=== PATIENT | female | born 1945 | race Caucasian/White ===

== ENCOUNTER 2017-12-09 07:23 | Emergency (ER) | payer MEDICARE, BC ==
[2017-12-09] MEDS ORDERED: Albuterol/Ipratropium NEB.SOL* Albuterol 2.5 MG/Ipratropium 0.5 MG 3 ML INH ONE ×2 (07:40→08:53)
[2017-12-09 08:05] LABS: ABS Basophils 0.1 10^3/ul (0-0.2); ABS Eosinophils 0.1 10^3/ul (0-0.6); ABS Lymphocytes 2.2 10^3/ul (1.0-4.8); ABS Monocytes 0.6 10^3/ul (0-0.8); ABS Neutrophils 3.8 10^3/ul (1.5-7.7); ABS Nucleated RBC 0 10^3/ul; Eosinophil % 2.1 % (0-6); Hematocrit 42 % (35-47); Hemoglobin 13.9 g/dl (12.0-16.0); Lymphocyte % 32.3 % (25-47); Mean Corpuscular HGB Conc 33 g/dl (31-36); Mean Corpuscular Hemoglobin 31 pg (27-31); Mean Corpuscular Volume 93 fL (80-97); Mean Platelet Volume 8 um3 (7.4-10.4); Nucleated Red Blood Cells % 0.1; Platelet Count 199 10^3/ul (150-450); Red Blood Count 4.54 10^6/ul (4.0-5.4); Red Cell Distribution Width 14 % (10.5-15); White Blood Count 6.8 10^3/ul (3.5-10.8)
[2017-12-09 08:16] LABS: EGFR Non-African American 60.2 (>60)
[2017-12-09] MEDS ORDERED: Ondansetron INJ* 2 MG/ML VIAL IV ONE (08:53)
[2017-12-09] MEDS ORDERED: methylPREDNISolone 125 MG* 2 ML VIAL IV ONE (08:54)
--- NOTE | 2017-12-09 09:58 | RAD ---
INDICATION: Cough. Flu positive. Bronchitis. Wheezing. COMPARISON: None TECHNIQUE: PA and lateral dual-energy views were obtained. FINDINGS: Bones/Soft Tissues: There are no acute bony findings. Cardiomediastinal: The heart is normal in size. There is mild ectasia of the ascending aorta and aortic knob. There are intimal calcifications. Lungs: There are no infiltrates. There is mild hyperinflation Pleura: There are no pleural effusions. Other: None IMPRESSION: NO ACTIVE DISEASE.
[2017-12-09] MEDS ORDERED: Albuterol HFA INHALER* 8 gm MDI INH ONE (10:15)
[2017-12-09 11:12] VITALS: BP 116/91
--- NOTE | 2017-12-09 15:58 | ED ---
Sudeep Person Thomas, scribed for Joao Barahona MD on 12/09/17 at 0740 . Respiratory - HPI Summary HPI Summary: The patient is a 72 year old female complaining of a productive cough and wheezing for the last two weeks. The patient has visited her primary care physician three times in the last week and has been diagnosed with influenza and bronchitis in the last three weeks. The patient finished a course of Tamiflu , antibiotics, and codeine. The patient denies fever. - History of Current Complaint Chief Complaint: EDGeneral Stated Complaint: SICK/COUGH Hx Obtained From: Patient Onset/Duration: Lasting Weeks - 2, Still Present Current Severity: Moderate Pain Intensity: 0 Character: Wheezing, Cough (Productive) Alleviating Factor(s): Nothing Associated Signs and Symptoms: Negative - fever - Allergy/Home Medications Allergies/Adverse Reactions: Allergies Allergy/AdvReac Type Severity Reaction Status Date / Time nitroglycerin AdvReac Intermediate Headache Verified 12/09/17 08:56 Home Medications: Home Medications Albuterol HFA INHALER* [Ventolin HFA Inhaler*] 2 puff INH Q4H PRN 12/09/17 [ History Confirmed 12/09/17] Butalb/Acetamin/Caff TAB* [Fioricet TAB*] 1 tab PO Q8H PRN 12/09/17 [History Confirmed 12/09/17] Calcium Carbonate/Vitamin D3 [Calcium Carbonate/Vitamin] 1 tab PO BID AC [History Confirmed 12/09/17] Codeine Phosphate/Guaifenesin [Codeine/Guaifenesin 100-10 mg/5Ml] 10 ml PO Q8H PRN 12/09/17 [History Confirmed 12/09/17] Ergocalciferol (Vitamin D2) [Vitamin D2] 50,000 unit PO .Q 2 WEEKS 12/09/17 [ History Confirmed 12/09/17] Hyoscyamine TAB* [Anaspaz 0.125 MG TAB*] 0.125 mg PO Q6H PRN 12/09/17 [History Confirmed 12/09/17] L.acidoph,Paracasei, B.lactis [Probiotic] 1 cap PO DAILY 12/09/17 [History Confirmed 12/09/17] Levothyroxine TAB* [Synthroid TAB*] 125 mcg PO DAILY 12/09/17 [History Confirmed 12/09/17] Ranitidine TAB (NF) [Zantac TAB (NF)] 150 mg PO BID 12/09/17 [History Confirmed 12/09/17] Sertraline* [Zoloft*] 100 - 150 mg PO DAILY 12/09/17 [History Confirmed 12/09/17 ] Zolpidem CR (NF) [Ambien CR (NF)] 6.25 mg PO BEDTIME PRN 12/09/17 [History Confirmed 12/09/17] PMH/Surg Hx/FS Hx/Imm Hx Endocrine/Hematology History: Denies: Hx Diabetes Cardiovascular History: Denies: Hx Congestive Heart Failure GI History: Reports: Hx Gastroesophageal Reflux Disease History: Denies: Hx Renal Disease, Other Problems/Disorders Psychiatric History: Denies: Hx of Violent Episodes Against Others - Surgical History Surgery Procedure, Year, and Place: DENIES Infectious Disease History: No Infectious Disease History: Denies: Traveled Outside the [place] in Last 30 Days - Family History Known Family History: Negative: Blood Disorder - Social History Alcohol Use: Rare Substance Use Type: Reports: None Smoking Status (MU): Never Smoked Tobacco Review of Systems Negative: Fever Positive: Cough, Other - Wheezing All Other Systems Reviewed And Are Negative: Yes Physical Exam - Summary Physical Exam Summary: VITAL SIGNS: Reviewed. GENERAL: Patient is a well-developed and nourished female who is lying comfortable in the stretcher. Patient is not in any acute respiratory distress. HEAD AND FACE: No signs of trauma. No ecchymosis, hematomas or skull depressions. No sinus tenderness. EYES: PERRLA, EOMI x 2, No injected conjunctiva, no nystagmus. EARS: Hearing grossly intact. Ear canals and tympanic membranes are within normal limits. MOUTH: Oropharynx within normal limits. NECK: Supple, trachea is midline, no adenopathy, no JVD, no carotid bruit, no c- spine tenderness, neck with full ROM. CHEST: Symmetric, no tenderness at palpation LUNGS: She has bilateral wheezing. CVS: Regular rate and rhythm, S1 and S2 present, no murmurs or gallops appreciated. ABDOMEN: Soft, non-tender. No signs of distention. No rebound no guarding, and no masses palpated. Bowel sounds are normal. EXTREMITIES: FROM in all major joints, no edema, no cyanosis or clubbing. NEURO: Alert and oriented x 3. No acute neurological deficits. Speech is normal and follows commands. SKIN: Dry and warm Triage Information Reviewed: Yes Vital Signs On Initial Exam: Initial Vitals Temp Pulse Resp BP Pulse Ox 97.6 F 90 20 138/96 94 12/09/17 07:25 12/09/17 07:25 12/09/17 07:25 12/09/17 07:25 12/09/17 07:25 Vital Signs Reviewed: Yes Diagnostics - Vital Signs Vital Signs Temp Pulse Resp BP Pulse Ox 12/09/17 07:25 97.6 F 90 20 138/96 94 - Laboratory Result Diagrams: 12/09/17 07:50 12/09/17 07:50 Lab Statement: Any lab studies that have been ordered have been reviewed, and results considered in the medical decision making process. - Radiology CXR Xray Interpretation: No Acute Changes - NO ACTIVE DISEASE. Dr. Barahona has reviewed this report. Radiology Interpretation Completed By: Radiologist Disposition - Course Assessment/Plan: The patient is a 72 year old female complaining of a productive cough and wheezing for the last two weeks. Test results are without significant abnormalities. CXR is negative for pneumonia and bronchitis. In the ED course, since the patient was wheezing, the patient was given Duo-Neb and Solu-medrol. Her symptoms improved, and she continues to sat 96 on room air. At this point, I discussed the findings and test results with the patient, and she will be discharged home to follow up with primary care. I believe the patients symptoms are secondary to viral illness .She was given a prescription for albuterol and prednisone. - Diagnoses Provider Diagnoses: Wheezing, Viral illness Discharge - Discharge Plan Condition: Stable Disposition: HOME Prescriptions: predniSONE TAB* [Deltasone TAB*] 40 mg PO DAILY #8 tab Patient Education Materials: Viral Syndrome (ED), Wheezing (ED) Referrals: Yudelka Canas MD [Primary Care Provider] - 3 Days Additional Instructions: Follow up with your primary care physician in three days. Return to the emergency department for any new or worsening symptoms. The documentation as recorded by the Sudeep mead Thomas accurately reflects the service I personally performed and the decisions made by , Joao Barahona MD.
== END 2017-12-09 11:09 | disposition home or self-care (01) ==
LOC: ED 07:23
DX: R06.2 Wheezing (principal); R05 Cough; Z87.19 Personal history of other diseases of the digestive system; B34.9 Viral infection, unspecified
CPT/HCPCS: 36415; 71046; 80053; 83605; 83880; 85025; 86140; 87070; 87077; 87205; 94640; 96374; 96375; 99284; A9270-GY; J2405; J2930

== ENCOUNTER 2018-02-01 08:46 | Emergency (ER) | payer MEDICARE, BC ==
[2018-02-01] MEDS ORDERED: Albuterol/Ipratropium NEB.SOL* Albuterol 2.5 MG/Ipratropium 0.5 MG 3 ML INH ONE ×3 (09:27→11:27)
[2018-02-01] MEDS ORDERED: methylPREDNISolone SOD 40 MG* 1 ML VIAL IV ONE (09:27)
[2018-02-01 09:49] LABS: ABS Basophils 0.1 10^3/ul (0-0.2); ABS Eosinophils 0.1 10^3/ul (0-0.6); ABS Lymphocytes 2.1 10^3/ul (1.0-4.8); ABS Monocytes 0.6 10^3/ul (0-0.8); ABS Neutrophils 2.5 10^3/ul (1.5-7.7); ABS Nucleated RBC 0 10^3/ul; Eosinophil % 2.7 % (0-6); Hematocrit 41 % (35-47); Hemoglobin 13.6 g/dl (12.0-16.0); Lymphocyte % 39.2 % (25-47); Mean Corpuscular HGB Conc 33 g/dl (31-36); Mean Corpuscular Hemoglobin 31 pg (27-31); Mean Corpuscular Volume 95 fL (80-97); Nucleated Red Blood Cells % 0.1; Platelet Count 200 10^3/ul (150-450); Red Blood Count 4.33 10^6/ul (4.0-5.4); Red Cell Distribution Width 15 % (10.5-15); White Blood Count 5.5 10^3/ul (3.5-10.8)
--- NOTE | 2018-02-01 10:02 | RAD ---
INDICATION: Shortness of breath, cough, wheezing. COMPARISON: December 09, 2017 chest radiograph and June 11, 2013 CT. TECHNIQUE: Dual energy PA and routine lateral views of the chest were obtained. REPORT: Elevated lung volumes with increased AP thoracic diameter. Minimal prominence of the interstitial markings and mild bilateral apical pleural-parenchymal scarring. No alveolar consolidation, focal pulmonary lesion, pleural effusion, pneumothorax. The heart, pulmonary vasculature, and mediastinal contours are unremarkable. Mild thoracic degenerative spondylosis. Surgical anchor at the RIGHT humeral head. IMPRESSION: Stigmata of obstructive lung disease. No acute pulmonary or cardiac process evident.
[2018-02-01 10:19] LABS: EGFR Non-African American 63.3 (>60)
[2018-02-01 11:08] LABS: Urine Appearance Clear; Urine Blood Negative (Negative); Urine Color Yellow; Urine Ketones Negative (Negative); Urine Protein Negative (Negative); Urine Specific Gravity 1.018 (1.010-1.030); Urine Urobilinogen Negative (Negative)
[2018-02-01] MEDS ORDERED: predniSONE TAB* 20 MG PO ONE (12:13)
[2018-02-01 12:25] VITALS: BP 133/87
--- NOTE | 2018-02-01 18:08 | ED ---
Shortness of Breath - HPI Summary HPI Summary: Patient is a 72-year-old female who presents emergency department for shortness of breath and increased cough times several days. Patient states she is currently being worked up for COPD. She states she was on inhalers and maintenance medications but they were stopped when she started on Nardil. Pt. states her psychiatrist told her she is unable to take any of her lung medications because they may interactive with nardil. Pt. otherwise denies fever , abd. pain, N/V/D. Admits to occasional chest discomfort. Symptoms are moderate in severity. Activity makes symptoms worse. Nothing makes symptoms better. - History of Current Complaint Chief Complaint: EDUpperRespComplaint Time Seen by Provider: 02/01/18 09:05 - Allergy/Home Medications Allergies/Adverse Reactions: Allergies Allergy/AdvReac Type Severity Reaction Status Date / Time nitroglycerin AdvReac Intermediate Headache Verified 02/01/18 08:52 PMH/Surg Hx/FS Hx/Imm Hx Previously Healthy: Yes Endocrine/Hematology History: Denies: Hx Diabetes Cardiovascular History: Denies: Hx Congestive Heart Failure Respiratory History: Denies: Hx Asthma, Hx Chronic Obstructive Pulmonary Disease (COPD) GI History: Reports: Hx Gastroesophageal Reflux Disease, Other GI Disorders - GERD History: Denies: Hx Renal Disease, Other Problems/Disorders Psychiatric History: Denies: Hx of Violent Episodes Against Others - Surgical History Surgery Procedure, Year, and Place: DENIES Infectious Disease History: No Infectious Disease History: Denies: Traveled Outside the [place] in Last 30 Days - Family History Known Family History: Negative: Blood Disorder - Social History Occupation: Retired Lives: With Family Alcohol Use: Rare Substance Use Type: Reports: None Smoking Status (MU): Never Smoked Tobacco Review of Systems Constitutional: Negative Negative: Fever, Chills Eyes: Negative ENT: Negative Positive: Chest Pain Positive: Shortness Of Breath, Cough Gastrointestinal: Negative Negative: Abdominal Pain, Vomiting, Diarrhea Genitourinary: Negative Skin: Negative Neurological: Negative All Other Systems Reviewed And Are Negative: Yes Physical Exam Triage Information Reviewed: Yes Vital Signs On Initial Exam: Initial Vitals Temp Pulse Resp BP Pulse Ox 97.3 F 72 18 158/75 97 02/01/18 08:47 02/01/18 08:47 02/01/18 08:47 02/01/18 08:47 02/01/18 08:47 Appearance: Positive: Well-Appearing - Patient sitting in bed in no acute distress. Breathing easily on room air. present. Skin: Positive: Warm, Dry Head/Face: Positive: Normal Head/Face Inspection Eyes: Positive: Normal ENT: Positive: Normal ENT inspection Neck: Positive: Supple Respiratory/Lung Sounds: Positive: Other - Mild diffuse inspiratory expiratory wheeze throughout. No accessory muscle use. Cardiovascular: Positive: Normal, RRR Abdomen Description: Positive: Nontender Musculoskeletal: Positive: Normal Neurological: Positive: Normal, CN Intact II-III Psychiatric: Positive: Normal Diagnostics - Vital Signs Vital Signs Temp Pulse Resp BP Pulse Ox 02/01/18 12:55 99.4 F 114 22 133/87 91 02/01/18 12:24 99.4 F 114 22 133/87 91 02/01/18 11:48 100 14 92 02/01/18 11:06 76 14 92 02/01/18 08:47 97.3 F 72 18 158/75 97 - Laboratory Lab Results: Lab Results 02/01/18 02/01/18 02/01/18 Range/Units 09:36 09:36 11:00 WBC 5.5 (3.5-10.8) 10^3/ul RBC 4.33 (4.0-5.4) 10^6/ul Hgb 13.6 (12.0-16.0) g/dl Hct 41 (35-47) % MCV 95 (80-97) fL MCH 31 (27-31) pg MCHC 33 (31-36) g/dl RDW 15 (10.5-15) % Plt Count 200 (150-450) 10^3/ul MPV 8.0 (7.4-10.4) um3 Neut % (Auto) 45.2 (38-83) % Lymph % (Auto) 39.2 (25-47) % [place] % (Auto) 10.8 H (0-7) % Eos % (Auto) 2.7 (0-6) % Baso % (Auto) 2.1 H (0-2) % Absolute Neuts (auto) 2.5 (1.5-7.7) 10^3/ul Absolute Lymphs (auto) 2.1 (1.0-4.8) 10^3/ul Absolute Monos (auto) 0.6 (0-0.8) 10^3/ul Absolute Eos (auto) 0.1 (0-0.6) 10^3/ul Absolute Basos (auto) 0.1 (0-0.2) 10^3/ul Absolute Nucleated RBC 0 10^3/ul Nucleated RBC % 0.1 Sodium 142 (139-145) mmol/L Potassium 4.3 (3.5-5.0) mmol/L Chloride 107 (101-111) mmol/L Carbon Dioxide 30 (22-32) mmol/L Anion Gap 5 (2-11) mmol/L BUN 18 (6-24) mg/dL Creatinine 0.88 (0.51-0.95) mg/dL Est GFR ( Amer) 81.5 (>60) Est GFR (Non-Af Amer) 63.3 (>60) BUN/Creatinine Ratio 20.5 H (8-20) Glucose 87 (70-100) mg/dL Calcium 9.0 (8.6-10.3) mg/dL Total Bilirubin 0.40 (0.2-1.0) mg/dL AST 14 (13-39) U/L ALT 10 (7-52) U/L Alkaline Phosphatase 42 (34-104) U/L Troponin I 0.00 (<0.04) ng/mL Total Protein 6.5 (6.4-8.9) g/dL Albumin 3.8 (3.2-5.2) g/dL Globulin 2.7 (2-4) g/dL Albumin/Globulin Ratio 1.4 (1-3) Urine Color Yellow Urine Appearance Clear Urine pH 7.0 (5-9) Ur Specific [place] 1.018 (1.010-1.030) Urine Protein Negative (Negative) Urine Ketones Negative (Negative) Urine Blood Negative (Negative) Urine Nitrate Negative (Negative) Urine Bilirubin Negative (Negative) Urine Urobilinogen Negative (Negative) Ur Leukocyte Esterase Negative (Negative) Urine Glucose Negative (Negative) Result Diagrams: 02/01/18 09:36 02/01/18 09:36 Lab Statement: Any lab studies that have been ordered have been reviewed, and results considered in the medical decision making process. Course/Dx - Course Course Of Treatment: Patient presenting to the emergency department for shortness of breath after stopping her pulmonary medications. She is afebrile with stable vital signs. Oxygen saturation is 97% on room air which is normal. Drug interaction was discussed with psychiatrist and they state there is no definite contraindication between albuterol and MAOIs. Patient was also examined by Dr. Strickland. He agrees to DuoNeb treatment. Basic labs, EKG chest x- ray were also ordered. Did initially order IV Solu-Medrol which was not given as no IV access was obtained by nurse. Chest x-ray shows obstructive lung disease without acute infiltrate, reading per radiology. Blood work is unremarkable. EKG done at 0934 is a sinus rhythm of 77 bpm, determinate access , appropriate intervals, no ST elevation or depression. She was given a total of 2 DuoNeb labs. On reexam wheezing has improved and she is feeling better. Patient has a nebulizer at home. Will put on a short course of steroids. Prescription for albuterol sent. Advised patient to call her lung doctor tomorrow to schedule an appointment and discuss medications. Patient to return to ER symptoms change or worsen. Patient understands and agrees with plan. - Diagnoses Differential Diagnosis/HQI/PQRI: Positive: Asthma, Bronchitis, MS, Pneumonia, Pneumothorax Provider Diagnoses: Obstructive airway disease, Bronchospasm Discharge - Sign-Out/Discharge Documenting (check all that apply): Discharge/Admit/Transfer - Discharge Plan Condition: Good Disposition: HOME Prescriptions: Albuterol 2.5MG/3ML (0.083%)* [Ventolin 2.5 MG/3 ML NEB.MARIE*] 2.5 mg INH Q4H # 30 neb.marie predniSONE TAB* [Deltasone TAB*] 40 mg PO DAILY 5 Days #10 tab Referrals: Yudelka Canas MD [Primary Care Provider] - Additional Instructions: Call your lung doctor tomorrow to make an appointment Medication as directed Return to ER if symptoms change or worsen - Billing Disposition and Condition Condition: GOOD Disposition: HOME
== END 2018-02-01 12:55 | disposition home or self-care (01) ==
LOC: ED 08:46
DX: J44.9 Chronic obstructive pulmonary disease, unspecified (principal); J98.01 Acute bronchospasm; Z88.8 Allergy status to other drugs, medicaments and biological substances
CPT/HCPCS: 36415; 71046; 80053; 81003; 84484; 85025; 93005; 94640; 96374; 99282; A9270-GY; J7512

== ENCOUNTER 2018-04-05 09:36 | Emergency (ER) | payer MEDICARE, BC ==
[2018-04-05 10:25] LABS: ABS Basophils 0.1 10^3/ul (0-0.2); ABS Eosinophils 0.1 10^3/ul (0-0.6); ABS Lymphocytes 1.9 10^3/ul (1.0-4.8); ABS Monocytes 0.7 10^3/ul (0-0.8); ABS Nucleated RBC 0 10^3/ul; Eosinophil % 1.2 % (0-6); Hematocrit 38 % (35-47); Hemoglobin 12.7 g/dl (12.0-16.0); Lymphocyte % 33.8 % (25-47); Mean Corpuscular HGB Conc 33 g/dl (31-36); Mean Corpuscular Hemoglobin 32 pg (27-31); Mean Corpuscular Volume 95 fL (80-97); Mean Platelet Volume 7.1 um3 (7.4-10.4); Nucleated Red Blood Cells % 0; Platelet Count 243 10^3/ul (150-450); Red Blood Count 3.99 10^6/ul (4.00-5.40); Red Cell Distribution Width 13 % (10.5-15); White Blood Count 5.7 10^3/ul (3.5-10.8)
[2018-04-05 10:44] LABS: EGFR Non-African American 58.7 (>60)
--- NOTE | 2018-04-05 11:07 | ED ---
Everardo Person Natalie, scribed for Dakotah Orlando MD on 04/05/18 at 1044 . Lower Extremity - HPI Summary HPI Summary: The patient is a 72 y/o F presenting to [facility] c/o increasing edema in the BLE starting a month ago. She has seen her PCP, who has started the pt on Nardil and then Lasix for the past month, neither of which seem to be helping the pt's swelling. She also states that she has had worsening SOB and weakness in her legs, especially with ambulation. The pain is described as aching, and the pt rates the pain as 5/10 in severity. She reports that she usually sits for most of the day. She had a Venous Doppler Study on her legs approximately a week and half ago which had negative results. 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 She just started a prescription of Amantadine from her neurologist. She denies any cardiac or blood clot history. She does not use compression socks or exercise regularly. - History of Current Complaint Chief Complaint: EDExtremityLower Stated Complaint: LEG SWELLING Time Seen by Provider: 04/05/18 10:08 Hx Obtained From: Patient Mechanism Of Injury: Other - increased edema in BLE with unknown cause Onset of Pain: Days Onset/Duration: Still Present Severity Initially: Mild Severity Currently: Mild Pain Intensity: 5 Pain Scale Used: 0-10 Numeric Timing: Constant, Lasting Weeks Location: Is Discrete @ - BLE Character Of Pain: Aching Associated Signs And Symptoms: Positive: Swelling, Weakness Aggravating Factor(s): Ambulation Alleviating Factor(s): Rest Able to Bear Weight: Yes - Allergies/Home Medications Allergies/Adverse Reactions: Allergies Allergy/AdvReac Type Severity Reaction Status Date / Time nitroglycerin AdvReac Intermediate Headache Verified 04/05/18 09:55 Home Medications: Home Medications Budesonide/Formote 80/4.5(NF) [Symbicort 80/4.5 (NF)] 1 puff INH BID 04/05/18 [ History Confirmed 04/05/18] Dicyclomine CAP* [Bentyl CAP*] 20 mg PO QID 04/05/18 [History Confirmed 04/05/18 ] Fluticasone NASAL SPRAY 50MCG* [Flonase NASAL SPRAY 50MCG*] 2 spray BOTH NARES DAILY 04/05/18 [History Confirmed 04/05/18] Phenelzine TAB* [Nardil TAB*] 15 mg PO DAILY 04/05/18 [History Confirmed ] PMH/Surg Hx/FS Hx/Imm Hx Endocrine/Hematology History: Denies: Hx Diabetes Cardiovascular History: Denies: Hx Congestive Heart Failure Respiratory History: Denies: Hx Asthma, Hx Chronic Obstructive Pulmonary Disease (COPD) GI History: Reports: Hx Gastroesophageal Reflux Disease, Other GI Disorders - GERD History: Denies: Hx Renal Disease, Other Problems/Disorders Psychiatric History: Denies: Hx of Violent Episodes Against Others - Surgical History Surgery Procedure, Year, and Place: DENIES Infectious Disease History: No Infectious Disease History: Denies: Traveled Outside the [place] in Last 30 Days - Family History Known Family History: Negative: Blood Disorder - Social History Alcohol Use: Rare Substance Use Type: Reports: None Smoking Status (MU): Never Smoked Tobacco Review of Systems Positive: Edema - in BLE Positive: Weakness - in BLE All Other Systems Reviewed And Are Negative: Yes Physical Exam - Summary Physical Exam Summary: Appearance: Well appearing, no pain distress Skin: warm, dry, reflects adequate perfusion Head/face: normal Eyes: EOMI, PA ENT: normal Neck: supple, non-tender, no JVD Respiratory: CTA, breath sounds present Cardiovascular: RRR, pulses symmetrical Abdomen: non-tender, soft Bowel Sounds: present Musculoskeletal: normal, strength/ROM intact, 1+ BLE edema Neuro: normal, sensory motor intact, A&Ox3 Triage Information Reviewed: Yes Vital Signs On Initial Exam: Initial Vitals Temp Pulse Resp BP Pulse Ox 98.4 F 87 18 117/58 94 04/05/18 09:43 04/05/18 09:43 04/05/18 09:43 04/05/18 09:43 04/05/18 09:43 Vital Signs Reviewed: Yes Diagnostics - Vital Signs Vital Signs Temp Pulse Resp BP Pulse Ox 04/05/18 09:50 122/69 04/05/18 09:43 98.4 F 87 18 117/58 94 - Laboratory Lab Results: Lab Results 04/05/18 04/05/18 04/05/18 Range/Units 10:14 10:14 10:14 WBC 5.7 (3.5-10.8) 10^3/ul RBC 3.99 L (4.00-5.40) 10^6/ul Hgb 12.7 (12.0-16.0) g/dl Hct 38 (35-47) % MCV 95 (80-97) fL MCH 32 H (27-31) pg MCHC 33 (31-36) g/dl RDW 13 (10.5-15) % Plt Count 243 (150-450) 10^3/ul MPV 7.1 L (7.4-10.4) um3 Neut % (Auto) 52.2 (38-83) % Lymph % (Auto) 33.8 (25-47) % [place] % (Auto) 11.6 H (0-7) % Eos % (Auto) 1.2 (0-6) % Baso % (Auto) 1.2 (0-2) % Absolute Neuts (auto) 3.0 (1.5-7.7) 10^3/ul Absolute Lymphs (auto) 1.9 (1.0-4.8) 10^3/ul Absolute Monos (auto) 0.7 (0-0.8) 10^3/ul Absolute Eos (auto) 0.1 (0-0.6) 10^3/ul Absolute Basos (auto) 0.1 (0-0.2) 10^3/ul Absolute Nucleated RBC 0 10^3/ul Nucleated RBC % 0 Sodium 136 (135-145) mmol/L Potassium 4.0 (3.5-5.0) mmol/L Chloride 103 (101-111) mmol/L Carbon Dioxide 27 (22-32) mmol/L Anion Gap 6 (2-11) mmol/L BUN 14 (6-24) mg/dL Creatinine 0.94 (0.51-0.95) mg/dL Est GFR ( Amer) 71.0 (>60) Est GFR (Non-Af Amer) 58.7 (>60) BUN/Creatinine Ratio 14.9 (8-20) Glucose 94 (70-100) mg/dL Calcium 9.2 (8.6-10.3) mg/dL B-Natriuretic Peptide 29 ( - 100) pg/mL Result Diagrams: 04/05/18 10:14 04/05/18 10:14 Lab Statement: Any lab studies that have been ordered have been reviewed, and results considered in the medical decision making process. - Radiology CXR Xray Interpretation: Positive (See Comments) - Chronic changes. No CHF. Radiology Interpretation Completed By: Radiologist - EKG 10:24 Cardiac Rate: NL - 74 BPM EKG Rhythm: Sinus Rhythm EKG Interpretation: Nml axis. Nml QTc. No ST elevations. Re-Evaluation - Re-Evaluation First Eval Re-Evaluation Time: 10:55 Change: Unchanged Comment: I spoke with the pt about her CXR results. She will be discharged home. Lower Extremity Course/Dx - Course Course Of Treatment: Patient with trace lower extremity edema. BNP normal. No evidence of CHF. Compression stockings applied here. Low-sodium diet. Follow- up with family doctor. - Diagnoses Provider Diagnoses: Edema of both lower extremities due to peripheral venous insufficiency Discharge - Sign-Out/Discharge Documenting (check all that apply): Discharge/Admit/Transfer - Pt will be discharged home. - Discharge Plan Condition: Good Disposition: HOME Patient Education Materials: Leg Edema (ED) Referrals: Yudelka Canas MD [Primary Care Provider] - Additional Instructions: Modest exercise or exercises of the legs may help. Low salt diet. Compression stockings especially when at rest. Follow-up with her family doctor on Friday. Return if worse, new symptoms or other concerns. - Billing Disposition and Condition Condition: GOOD Disposition: Home The documentation as recorded by the Evearrdo mead Natalie accurately reflects the service I personally performed and the decisions made by me, Dakotah Orlando MD.
[2018-04-05 11:38] VITALS: BP 132/74
--- NOTE | 2018-04-05 11:55 | RAD ---
Indication: Shortness of breath. 2 views of the chest including dual energy PA views demonstrates no mediastinal shift. There is cardiomegaly noted. No evidence of alveolar consolidation is noted. No definite pneumonia is identified. IMPRESSION: No active cardiopulmonary disease is noted.
== END 2018-04-05 11:33 | disposition home or self-care (01) ==
LOC: ED 09:36
DX: R60.0 Localized edema (principal); I87.2 Venous insufficiency (chronic) (peripheral)
CPT/HCPCS: 36415; 71046; 80048; 83880; 85025; 93005; 99283

== ENCOUNTER 2018-05-11 11:05 | Inpatient (IN) | payer MEDICARE, BC ==
--- OUTSIDE RECORDS SUMMARY | 2018-05-11 11:21 | XMS REPORT ---
:1945 External Reference #:[id number] Author Organization [facility] Address [address] [place] [address] Phone [phone] Care Team Providers Name Role Phone Yudelka Canas MD Care Team Information Credit Collections Specialist Unavailable Yudelka Canas MD Primary Care Physician Unavailable Payers Type Date Identification Numbers Payment Provider Subscriber Medicare Primary Policy Number: [id number] Medicare Nica Aparicio PayID: [id number] [address] [place] [address] Medigap Part B Policy Number: [id number] BS Facets Nica Aparicio PayID: [id number] [address] [address] [place] [address] Problems Date Description Provider Status Onset: 07/07/2017 Obstructive sleep apnea Ros Voss DNP, RN, Active syndrome 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 Active Onset: 03/19/2018 Drug-induced tardive dystonia Stevan Palm M.D. Active Onset: 01/08/2018 Secondary parkinsonism Stevan Palm M.D. Active Onset: 11/03/2017 Chronic fatigue syndrome Stevan Palm M.D. Active Onset: 11/03/2017 Abnormal involuntary movement Stevan Palm M.D. 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 Cigarette Use Former Cigarette Smoker 2 20 years Packs Daily Cigarette Use Quit - Age 51 ETOH Use Denies alcohol use Smoking Patient is a former smoker quit in late Recreational Drug Use Denies Drug Use Daily Caffeine Does Not Consume Caffeine Exercise Type/Frequency Does not exercise Allergies, Adverse Reactions, Alerts Date Description Reaction Status Severity Comments 05/20/2017 NKDA active Medications Medication Date Status Form Strength Qnty SIG Indications Ordering Provider Sinemet 05/01 Active Tablets 25-100mg 90tab take 10/07 G24.01 s pill three [place], [place] times a day 30 min prior to meals Symbicort 02/04 Active Aerosol 80-4.5mcg 6.900 1 puff Bambi /2017 /Act gm twice a MD Phuc day Ipratropium 02/02 Active Solution 0.5-2.5(3 270ml 1 unit J44.1 Bambi [place] )mg/3ML every 12 MD Phuc rol Sulfate hours as needed Budesonide 02/02 Active Suspension 0.25mg/2M 180un use one J44.1 Bambi L its vial in MD Phuc nebulizer twice daily Oxygen 11/14 Active Misc 1unit 2 l nc at s bedtime CHASE Voss, Dx R09.02 RN, PATROL DEPUTY SHERIFF-BC nocturnal hypoxemia Calcium 600+D Active Tablets 600-200mg 2 by mouth Unknown /0000 -Unit a day Probiotic Active Capsules 1 by mouth Unknown /0000 every day Zolpidem Active Tablets ER 6.25mg 1 tablet Unknown Tartrate ER /0000 just before bed Clonazepam Active Tablets 1mg 3 tabs a Unknown /0000 day Levothyroxine Active Tablets 125mcg 1 by mouth Unknown Sodium /0000 every day Vitamin D Active Capsules [id number] 2x month Cannariato, (Ergocalcifero /0000 Evelia prachi) MD Yobani Butalbital/Fuad Active Tablets 50-325-40 Take 1 Unknown taminophen/Caf /0000 mg Tablet By feine Mouth Every Eight Hours as Needed For Headache Phenelzine Active Tablets 15mg three Adrianne, Sulfate /0000 times a MD Harley day Bentyl Active Capsules 20mg 1 by mouth Unknown /0000 four times a day prn Flonase Active Suspension 50mcg/Act spray 1 Unknown Allergy Relief /0000 spray in each nostril twice daily as needed Zofran Active Tablets 8mg take 1 by Unknown /0000 mouth every 8 hours as needed for nausea Gocovri 03/19 Hx Caps ER 137mg 60cap for first G24.01 24HR s week take An Palm - 1 at 04/17 bedtime Prednisone 12/16 Hx Tablets 5mg 84tab Take 3 J20.9 Bambi s Tabs By MD Phuc - Mouth 02/01 Daily For 2 Weeks, 2 Tabs Daily For 2 Weeks, 1 Tab Daily For 2 Weeks Hyoscyamine Hx Tablets 0.125mg 1 tab qid Unknown Sulfate /0000 - 07/07 Ondansetron Hx Tablets 8mg 1 by mouth Unknown /0000 Dispers prn - 01/07 Rizatriptan Hx Tablets 10mg 1 by mouth Unknown Benzoate /0000 Dispers as needed - for 11/02 headache, max 2 days a week Armodafinil Hx Tablets 50mg take one Unknown /0000 tablet by - mouth 12/15 Sertraline HCL Hx Tablets 50mg 1 by mouth Unknown /0000 every day - for 5 days 01/07 Latuda Hx Tablets 40mg 1 by mouth Unknown /0000 every day - 10/28 Topiramate Hx Tablets 100mg 1 by mouth Unknown /0000 twice a - day 12/15 Fibercon Hx Tablets 625mg 2 per day Unknown /0000 - 07/07 Famotidine Hx Tablets 20mg 2 tabs per Unknown /0000 day - 07/07 Linzess Hx Capsules 145mcg Desiree, /0000 Clint Nicolas MD 10/28 Zantac Hx Tablets take 1 Unknown /0000 tablet - everyday 01/18 Nuvigil Hx Tablets 50mg take one Unknown /0000 capsule/ta - blet daily 12/16 by mouth as needed for hypersomni a Advair Diskus Hx Aerosol 500-50mcg prn Galyanova, /0000 /Dose Clint Jha MD 01/07 Fluticasone 00 Hx Suspension 50mcg/Act Galyanova, Propionate /0000 Clint Jha MD 02/01 Symbicort Hx Aerosol 160-4.5mc 2 puffs Unknown /0000 g/Act daily - 01/18 Hyoscyamine Hx Tablets Sub 0.125mg as needed Georgetson, Sulfate /0000 Clint Nicolas MD 03/18 Ranitidine HCL Hx Tablets 300mg Take 1 Unknown /0000 Tablet By - Mouth 01/18 Twice A Day Furosemide Hx Tablets 20mg half Galyanova, /0000 tablet Yudelka, - every day- 04/30 started 03/17/18 Vitamin D Hx Capsules 46770 1 by mouth Unknown /0000 every two - weeks 03/18 Vital Signs Date Vital Result Comment 05/01/2018 Height 65 inches 5'5" Weight 230.00 lb Heart Rate 84 /min BP Systolic Sitting 138 mmHg BP Diastolic Sitting 76 mmHg Respiratory Rate 18 /min BMI (Body Mass Index) 38.3 kg/m2 04/17/2018 Height 65 inches 5'5" Weight 229.56 lb Heart Rate 66 /min BP Systolic 112 mmHg BP Diastolic 68 mmHg BMI (Body Mass Index) 38.2 kg/m2 03/19/2018 Height 65 inches 5'5" Weight 210.00 lb Heart Rate 76 /min BP Systolic Sitting 118 mmHg BP Diastolic Sitting 80 mmHg Respiratory Rate 16 /min BMI (Body Mass Index) 34.9 kg/m2 02/02/2018 Height 65 inches 5'5" Weight 215.50 lb Heart Rate 94 /min BP Systolic Sitting 118 mmHg Lue large cuff BP Diastolic Sitting 80 mmHg Lue large cuff Respiratory Rate 12 /min O2 % BldC Oximetry 92 % On Ra BMI (Body Mass Index) 35.9 kg/m2 01/19/2018 Height 65 inches 5'5" Weight 214.00 lb Heart Rate 76 /min BP Systolic Sitting 118 mmHg BP Diastolic Sitting 80 mmHg Respiratory Rate 14 /min O2 % BldC Oximetry 96 % BMI (Body Mass Index) 35.6 kg/m2 01/08/2018 Height 65 inches 5'5" Weight 205.00 lb Heart Rate 82 /min BP Systolic Sitting 124 mmHg BP Diastolic Sitting 66 mmHg Respiratory Rate 16 /min BMI (Body Mass Index) 34.1 kg/m2 12/16/2017 Height 65 inches 5'5" Weight 207.00 lb Heart Rate 84 /min BP Systolic Sitting 110 mmHg BP Diastolic Sitting 70 mmHg Respiratory Rate 14 /min O2 % BldC Oximetry 94 % BMI (Body Mass Index) 34.4 kg/m2 11/03/2017 Height 65 inches 5'5" Weight 215.00 lb Heart Rate 84 /min BP Systolic 106 mmHg BP Diastolic 74 mmHg Respiratory Rate 14 /min BMI (Body Mass Index) 35.8 kg/m2 10/28/2017 Height 65 inches 5'5" Weight 219.00 lb no shoes Heart Rate 90 /min BP Systolic Sitting 110 mmHg Rue large cuff BP Diastolic Sitting 80 mmHg Rue large cuff Respiratory Rate 16 /min O2 % BldC Oximetry 93 % On Ra BMI (Body Mass Index) 36.4 kg/m2 07/07/2017 Height 65 inches 5'5" Weight 213.25 lb With shoes Heart Rate 78 /min BP Systolic Sitting 126 mmHg Lue reg cuff BP Diastolic Sitting 64 mmHg Lue reg cuff Respiratory Rate 20 /min O2 % BldC Oximetry 95 % On Ra BMI (Body Mass Index) 35.5 kg/m2 05/20/2017 Height 65 inches 5'5" Weight 206.00 lb Heart Rate 72 /min BP Systolic Sitting 110 mmHg BP Diastolic Sitting 78 mmHg Respiratory Rate 14 /min O2 % BldC Oximetry 96 % BMI (Body Mass Index) 34.3 kg/m2 Neck Circumference in inches 16 Results Test Date Test Result H/L Range Note Basic Metabolic Panel 11/26/2017 Sodium 140 mmol/L 133-145 Potassium 3.9 mmol/L 3.5-5.0 Chloride 104 mmol/L 101-111 Co2 Carbon Dioxide 29 mmol/L 22-32 Anion Gap 7 mmol/L 2-11 Glucose 91 mg/dL 70-100 Blood Urea Nitrogen 13 mg/dL 6-24 Creatinine 1.04 mg/dL High 0.51-0.95 BUN/Creatinine Ratio 12.5 8-20 Calcium 9.8 mg/dL 8.6-10.3 Egfr Non- 52.2 >60 Egfr 67.2 >60 1 Laboratory test finding 11/03/2017 TSH (Thyroid Stim Horm) 1.40 mcIU/mL 0.34-5.60 Free T4 (Free Thyroxine) 0.95 ng/dL 0.61-1.12 Vitamin B12 And Folate Serum 11/03/2017 Vitamin B12 291 pg/mL 180-914 2 Folic Acid (Folate) 5.48 ng/mL >3.99 Laboratory test finding 11/03/2017 Ceruloplasmin 31.6 mg/dL 3 Copper, Serum 1.32 g/mL 0.75-1.45 4 Erythrocyte Sed Rate 15 mm/Hr 0-40 1 Because ethnic data is not always readily available, this report includes an eGFR for both -Americans and non- Americans. The National Kidney Disease Education Program (NKDEP) does not endorse the use of the MDRD equation for patients that are not between the ages of 18 and 70, are , have extremes of body size, muscle mass, or nutritional status, or are non- or non-. According to the National Kidney Foundation, irrespective of diagnosis, the stage of the disease is based on the level of kidney function: Stage Description GFR(mL/min/1.73 m(2)) 1 Kidney damage with normal or decreased GFR 90 2 Kidney damage with mild decrease in GFR 60-89 3 Moderate decrease in GFR 30-59 4 Severe decrease in GFR 15-29 5 Kidney failure <15 (or dialysis) 2 Normal Range 180 to 914 Indeterminate Range 145 to 180 Deficient Range <145 3 REFERENCE VALUE 20.0 - 51.0 Test Performed by: [facility] - [address] [address] 4 ADDITIONAL INFORMATION This test was developed and its performance characteristics determined by [facility] in a manner consistent with CLIA requirements. This test has not been cleared or approved by the U.S. Food and Drug Administration. Test Performed by: [facility] - [facility] [address], [place] [address] Procedures Date CPT Code Description Status 02/08/2018 06211 Polysomnography Sleep Staging 4+ Parameters W/Cpap Completed 11/27/2017 73016 Sleep Study Unattended,HRT Rate,Oxygen Sat,Resp Completed Effort/Airflow 06/11/2017 43638 Polysomnography Sleep Staging 4+ Parameters Completed Encounters Type Date Location Provider CPT E/M Dx Office Visit 05/01/2018 Freda Palm 34468 G24.01 1:30p Services Of Astrid Nolan G47.33 Office Visit 04/17/2018 2:15p Freda Palm 34003 G24.01 Services Of Astrid Nolan G47.33 R60.9 H53.8 Office Visit 03/19/2018 1:45p Freda Palm 94753 G24.01 Services Of Astrid Nolan G21.2 Office Visit 02/02/2018 10:45a [place] [address] J44.1 Services Of Restaurant Host/Hostess J45.909 G47.33 Office Visit 01/19/2018 11:30a [facility] [address] J45.909 Services Of Restaurant Host/Hostess G47.33 E66.09 Z68.35 Office Visit 01/08/2018 2:15p Freda Palm 50608 G21.2 Services Of Astrid Nolan Office Visit 12/16/2017 11:00a [place] [address] R06.2 Services Of Astrid J20.9 J45.909 R09.02 Office Visit 11/03/2017 10:30a Freda Palm 17940 R25.1 Services Of Astrid Nolan R53.82 Office Visit 10/28/2017 2:00p [facility] Ros Voss 91456 G47.33 Services Of Restaurant Host/Hostess CHASE, RN, PATROL DEPUTY SHERIFF-BC R09.02 E66.09 Z68.36 Office Visit 07/07/2017 10:45a Pul[facility]ology And Sleep Ros Voss, 38824 G47.33 Services Of [facility] CHASE, RN, PATROL DEPUTY SHERIFF-BC R09.02 Office Visit 05/20/2017 11:30a [place] [address] G47.33 Services Of [facility] E66.09 Z68.34 Plan of Care Future Appointment(s):05/15/2018 1:45 pm - Stevan Palm M.D. at [facility]06/11/2018 3:30 pm - Bambi Friend MD at [facility]07/21/2018 1:30 pm - Bambi Friend MD at [facility]05/01/2018 - Stevan Palm M.D.G24.01 Drug induced subacute dyskinesiaNew Medication:Sinemet 25-100 mgFollow up:Follow up in 2 weeksRecommendations:Try Melatonin 5-10mg each night 1 hour prior to bed Continue to use the CPAP Start Carbidoba/Levodopa 25/100, 1/2 tablet 3 times a day 30 min before vnewwY10.33 Obstructive sleep apnea ( adult) (pediatric)
--- OUTSIDE RECORDS SUMMARY | 2018-05-11 11:22 | XMS REPORT ---
:1945 External Reference #:[id number] Author Organization [facility] Address [address] [place] [address] Phone [phone] Care Team Providers Name Role Phone Yudelka Canas MD Care Team Information Pipe Processor Unavailable Yudelka Canas MD Primary Care Physician Unavailable Payers Type Date Identification Numbers Payment Provider Subscriber Medicare Primary Policy Number: [id number] Medicare Nica Aparicio PayID: [id number] [address] [place] [address] Medigap Part B Policy Number: [id number] BS Facets Nica Aparicio PayID: [id number] [address] [address] [place] [address] Problems Date Description Provider Status Onset: 07/07/2017 Obstructive sleep apnea Ros Voss DNP, RN, Active syndrome FIELD NURSE-BC Onset: 07/07/2017 Body mass index 30+ - obesity Ros Voss DNP, RN, Active FIELD NURSE-BC Onset: 10/28/2017 Hypoxemia Ros Voss DNP, RN, Active FIELD NURSE-BC Onset: 04/17/2018 Edema Stevan Palm M.D. 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 Cigarette Use Former Cigarette Smoker 2 20 years Packs Daily Cigarette Use Quit - Age 51 ETOH Use Denies alcohol use Smoking Patient is a former smoker Recreational Drug Use Denies Drug Use Daily Caffeine Does Not Consume Caffeine Exercise Type/Frequency Does not exercise Allergies, Adverse Reactions, Alerts Date Description Reaction Status Severity Comments 05/20/2017 NKDA active Medications Medication Date Status Form Strength Qnty SIG Indications Ordering Provider Symbicort 02/04 Active Aerosol 80-4.5mcg 6.900 1 puff Bambi /2018 /Act gm twice a MD Phuc day Ipratropium 02/02 Active Solution 0.5-2.5(3 270ml 1 unit J44.1 Bambi [place] )mg/3ML every 12 MD Phuc rol Sulfate hours as needed Budesonide 02/02 Active Suspension 0.25mg/2M 180un use one J44.1 Bambi L its vial in MD Phuc nebulizer twice daily Oxygen 11/14 Active Misc 1unit 2 l nc at Ros /2017 s bedtime Shanika, DNP, Dx R09.02 RN, FIELD NURSE-BC nocturnal hypoxemia Calcium 600+D Active Tablets 600-200mg 2 by mouth Unknown /0000 -Unit a day Probiotic Active Capsules 1 by mouth Unknown /0000 every day Zolpidem Active Tablets ER 6.25mg 1 tablet Unknown Tartrate ER /0000 just before bed Clonazepam Active Tablets 1mg 4 tabs a Unknown / day Levothyroxine Active Tablets 125mcg 1 by mouth Unknown Sodium /0000 every day Vitamin D Active Capsules [id number] 2x month Cannariato, (Ergocalcifero /0000 Evelia l) MD Yobani Butalbital/Fuad Active Tablets 50-325-40 Take 1 Unknown taminophen/Caf /0000 mg Tablet By feine Mouth Every Eight Hours as Needed For Headache Phenelzine Active Tablets 15mg three Adrainne, Sulfate /0000 times a MD Harley day Bentyl Active Capsules 20mg 1 by mouth Unknown /0000 four times a day Flonase Active Suspension 50mcg/Act spray 1 Unknown Allergy Relief /0000 spray in each nostril twice daily as needed Furosemide Active Tablets 20mg half Galyanova, /0000 tablet Yudelka, every day- MD just started 03/17/18 Zofran Active Tablets 8mg take 1 by [...] Unknown /0000 tablet by - mouth 12/15 /2017 Sertraline HCL Hx Tablets 50mg 1 by [...] Desiree, /0000 Clint Nicolas MD 10/28 Zantac 00 Hx Tablets take 1 Unknown /0000 tablet - everyday 01/18 Nuvigil Hx Tablets 50mg take one Unknown /0000 capsule/ta - blet daily 12/16 by mouth as needed for hypersomni a Advair Diskus Hx Aerosol 500-50mcg prn Missael, /0000 /Dose Clint Jha MD 01/07 Fluticasone 00 Hx Suspension 50mcg/Act Galyanova, Propionate /0000 Cilnt Jha MD 02/01 Symbicort Hx Aerosol 160-4.5mc 2 puffs Unknown /0000 g/Act daily - 01/18 Hyoscyamine Hx Tablets Sub 0.125mg as needed [place], Sulfate /0000 Clint Nicolas MD 03/18 Ranitidine HCL Hx Tablets 300mg Take 1 Unknown /0000 Tablet By - Mouth 01/18 Twice A Day Vitamin D Hx Capsules 45189 1 by mouth Unknown /0000 every two - weeks 03/18 Vital Signs Date Vital Result Comment 04/17/2018 Height 65 inches 5'5" Weight 229.56 [...] VALUE 20.0 - 51.0 Test Performed by: [facility] - [address] [address] 4 ADDITIONAL INFORMATION This test was developed and its performance characteristics determined by [facility] in a manner consistent with CLIA requirements. This test has not been cleared or approved by the U.S. Food and Drug Administration. Test Performed by: [facility] - [facility] [address] [place] [address] Procedures Date CPT Code Description Status 02/08/2018 03630 Polysomnography Sleep Staging 4+ Parameters W/Cpap Completed 11/27/2017 37024 Sleep Study Unattended,HRT Rate,Oxygen Sat,Resp Completed Effort/Airflow 06/11/2017 11018 Polysomnography Sleep Staging 4+ Parameters Completed Encounters Type Date Location Provider CPT E/M Dx Office Visit 03/19/2018 [facility] Stevan Palm, [address] G24.01 1:45p Services Of Library Media Assistant An G21.2 Office Visit 02/02/2018 10:45a [place] [address] J44.1 Services Of [facility] J45.909 G47.33 Office Visit 01/19/2018 11:30a [facility] [address] J45.909 Services [facility] G47.33 E66.09 Z68.35 Office Visit 01/08/2018 2:15p [facility] Stevan Palm 46058 G21.2 Services Of Astrid Nolan Office Visit 12/16/2017 11:00a Pul[place] [address] R06.2 Services Of [facility] J20.9 J45.909 R09.02 Office Visit 11/03/2017 10:30a [facility] Stevan Palm [address] R25.1 Services Of Library Media Assistant An R53.82 Office Visit 10/28/2017 2:00p [facility] Sleep Ros Voss [address]21 G47.33 Services Of [facility] PAUL STONE, FIELD NURSE-GERARDO R09.02 E66.09 Z68.36 Office Visit 07/07/2017 10:45a [facility] Ros Voss 33536 G47.33 Services Of [facility] PAUL STONE, FIELD NURSE-EGRARDO R09.02 Office Visit 05/20/2017 11:30a [facility] [address] G47.33 Services [facility] E66.09 Z68.34 Plan of Care Future Appointment(s):05/01/2018 1:30 pm - Stevan Palm M.D. at [facility]06/11/2018 3:30 pm - Bambi Friend MD at [facility]07/21/2018 1:30 pm - Bambi Friend MD at [facility]04/17/2018 - Stevan Palm M.D.G24.01 Drug induced subacute dyskinesiaFollow up:Follow up in 2 weeks. OK to overbookRecommendations:Stop KgblxtdE73.33 Obstructive sleep apnea (adult) ( pediatric)R60.9 Edema, unspecified
[2018-05-11 13:08] LABS: ABS Basophils 0.1 10^3/ul (0-0.2); ABS Eosinophils 0.2 10^3/ul (0-0.6); ABS Monocytes 0.8 10^3/ul (0-0.8); ABS Neutrophils 4.5 10^3/ul (1.5-7.7); ABS Nucleated RBC 0 10^3/ul; Eosinophil % 2.3 % (0-6); Hematocrit 42 % (35-47); Hemoglobin 13.8 g/dl (12.0-16.0); Lymphocyte % 26.2 % (25-47); Mean Corpuscular HGB Conc 33 g/dl (31-36); Mean Corpuscular Hemoglobin 31 pg (27-31); Mean Corpuscular Volume 95 fL (80-97); Mean Platelet Volume 7.3 um3 (7.4-10.4); Nucleated Red Blood Cells % 0.1; Platelet Count 240 10^3/ul (150-450); Red Cell Distribution Width 14 % (10.5-15); White Blood Count 7.6 10^3/ul (3.5-10.8)
--- NOTE | 2018-05-11 13:15 | ED ---
Neurological HPI - HPI Summary HPI Summary: This is scribe Vaughngrisel Adam documenting for attending Dr. Raheem Motta MD. A 72 y/o female presents to ED c/o frequent unsteadiness and losing self- balance for the past couple weeks. Currently, Patient wishes to stay in ED to check her from head to toe as she stated, "I just don't feel good". In the ED room, the patient has a pulse of 94 BPM, O2 saturation of 94% and blood pressure of 121/84. As per triage, "pt states over the past week she has been getting increased weakness in her legs and it is causing her to have multiple falls. Pt also mentioned she recently had a Vit D defiency, her PMD talked with her and said to come here for eval". It was noted that the patient is in the ED as she is referred from her PCP, Dr. Palm, as she could not get in to see. According to the patient, she has been in bed for the past 2-weeks because of her deficiency (low) in vitamin D (started yesterday). She noted that suddenly she cannot keep her self-balance/can't balance herself and because of it, she fell a total of 3 times (2 yesterday, 1 other day previous). She stated that she was going in her closet and took a "good tumble". As per , he thinks she tripped on a pair of shoes, but he was not present during incident. It is unknown to patient and whether or not she collapsed. She noted that she was sore post-fall as her left shoulder hurts and has lower back pain. Pt denies any LOC or sickness recently, however, she has been eating/drinking fine as she has been gaining weight and has headache and some cough. As per , "she has no umpf". She noted that her PCP, Dr. 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 Denies PMHx of heart disease or high cholesterol. Currently she is on Topamax (for past 1.5-2 weeks) prescribed by PCP to lose weight and control her migraines. - History of Current Complaint Chief Complaint: EDExtremityLower Stated Complaint: LEG WEAKNESS/FELL Time Seen by Provider: 05/11/18 11:59 Hx Obtained From: Patient Onset/Duration: Sudden Onset, Started days ago, Still Present Timing: Constant Current Severity: None Number of Seizures: 0 Pain Intensity: 0 Pain Scale Used: 0-10 Numeric Syncope Context: Unknown Aggravating: Nothing Alleviating: Nothing Associated Signs and Symptoms: Positive: Headache, Weakness. Negative: Loss of Consciousness - UNKNOWN - Allergy/Home Medications Allergies/Adverse Reactions: Allergies Allergy/AdvReac Type Severity Reaction Status Date / Time nitroglycerin AdvReac Intermediate Headache Verified 05/11/18 12:02 Home Medications: Home Medications Budesonide/Formote 80/4.5(NF) [Symbicort 80/4.5 (NF)] 1 puff INH BID 05/11/18 [ History Confirmed 05/11/18] Calcium Carbonate/Vitamin D3 [Calcium 600 + Vit D Tablet] 1 tab PO BID AC [History Confirmed 05/11/18] Carbidopa/Levodop 25/100 MG(*) [Sinemet 25/100 TAB(*)] 0.5 tab PO TID AC [History Confirmed 05/11/18] Dicyclomine CAP* [Bentyl CAP*] 20 mg PO QID 05/11/18 [History Confirmed 05/11/18 ] Ergocalciferol CAP* [Drisdol CAP*] 50,000 unit PO Q14D 05/11/18 [History Confirmed 05/11/18] Furosemide TAB* [Lasix TAB*] 20 mg PO DAILY 05/11/18 [History Confirmed 05/11/18 ] Lactobacillus Acidophilus [Probiotic Acidophilus] 1 tab PO DAILY 05/11/18 [ History Confirmed 05/11/18] Topiramate [Topamax] 50 mg PO BID 05/11/18 [History Confirmed 05/11/18] PMH/Surg Hx/FS Hx/Imm Hx Endocrine/Hematology History: Denies: Hx Diabetes Cardiovascular History: Denies: Hx Congestive Heart Failure Respiratory History: Reports: Other Respiratory Problems/Disorders Denies: Hx Asthma, Hx Chronic Obstructive Pulmonary Disease (COPD) GI History: Reports: Hx Gastroesophageal Reflux Disease, Other GI Disorders - GERD History: Denies: Hx Renal Disease, Other Problems/Disorders Psychiatric History: Denies: Hx of Violent Episodes Against Others - Surgical History Surgery Procedure, Year, and Place: DENIES Infectious Disease History: No Infectious Disease History: Denies: Traveled Outside the [place] in Last 30 Days - Family History Known Family History: Negative: Blood Disorder - Social History Alcohol Use: Rare Substance Use Type: Reports: None Smoking Status (MU): Never Smoked Tobacco Review of Systems Positive: Other - POSITIVE: Generalized sickness. Negative: Fever, Chills Negative: Erythema Negative: Sore Throat Negative: Chest Pain Negative: Shortness Of Breath, Cough Negative: Abdominal Pain, Vomiting, Nausea Negative: dysuria, hematuria Positive: Other - POSITIVE: Left shoulder pain, lower back pain.. Negative: Myalgia, Edema Negative: Rash Neurological: Other - NEGATIVE: Dizziness; POSITIVE: Loss of balance/ unsteadiness. Positive: Weakness All Other Systems Reviewed And Are Negative: Yes Physical Exam - Summary Physical Exam Summary: Constitutional: Well-developed, Well-nourished, Alert. (-) Distressed Skin: Warm, Dry HENT: Normocephalic; Atraumatic Eyes: Conjunctiva normal Neck: Musculoskeletal ROM normal neck. (-) JVD, (-) Stridor, (-) Tracheal deviation Cardio: Rhythm regular, rate normal, Heart sounds normal; Intact distal pulses; The pedal pulses are 2+ and symmetric. Radial pulses are 2+ and symmetric. (-) Murmur Pulmonary/Chest wall: Effort normal. (-) Respiratory distress, (-) Wheezes, (-) Rales Abd: Soft, (-) epigastric tenderness, (-) Distension, (-) Guarding, (-) Rebound Musculoskeletal: (-) Edema. Proximal humerus tenderness. Lymph: (-) Cervical adenopathy Neuro: Alert, Oriented x3 Psych: Mood and affect Normal GCS: 15 Triage Information Reviewed: Yes Vital Signs On Initial Exam: Initial Vitals Temp Pulse Resp BP Pulse Ox 97.3 F 90 16 119/73 96 05/11/18 11:08 05/11/18 11:08 05/11/18 11:08 05/11/18 11:08 05/11/18 11:08 Vital Signs Reviewed: Yes Diagnostics - Vital Signs Vital Signs Temp Pulse Resp BP Pulse Ox 05/11/18 12:00 88 14 94 05/11/18 11:57 89 17 130/88 96 05/11/18 11:08 97.3 F 90 16 119/73 96 - Laboratory Result Diagrams: 05/11/18 12:51 05/11/18 12:51 Lab Statement: Any lab studies that have been ordered have been reviewed, and results considered in the medical decision making process. - Radiology CXR Radiology Interpretation Completed By: Radiologist - EXPIRATORY IMAGE. NO ACTIVE DISEASE. ED PHYSICIAN REVIEWED THIS RADIOLOGY REPORT. SHOULDER XR Radiology Interpretation Completed By: Radiologist - NO ACUTE BONY FINDINGS. ED PHYSICIAN REVIEWED THIS RADIOLOGY REPORT. - CT BRAIN CT CT Interpretation Completed By: Radiologist - 1. No CT evidence for traumatic brain injury or acute intracranial process evident. 2. Mild atrophy and stigmata of chronic small vessel ischemic disease. ED physician reviewed this radiology report. - EKG 1332 Cardiac Rate: NL - 91 BPM EKG Rhythm: Sinus Rhythm EKG Interpretation: Negative STEMI. Course/Dx - Course Course Of Treatment: A 72 y/o female presents to ED c/o frequent unsteadiness and losing self-balance for the past couple weeks. Currently, Patient wishes to stay in ED to check her from head to toe as she stated, "I just don't feel good ". In the ED room, the patient has a pulse of 94 BPM, O2 saturation of 94% and blood pressure of 121/84. A Brain CT revealed 1. No CT evidence for traumatic brain injury or acute intracranial process evident. 2. Mild atrophy and stigmata of chronic small vessel ischemic disease. A CXR revealed expiratory image. No active disease. A Shoulder XR revealed no acute bony findings. A EKG revealed a rate of 91 BPM and negative STEMI. Patient care was discussed with Dr. Sanford who accepts patient for admission. Patient will be admitted with a diagnosis of elevated troponin, weakness and frequent falls. Patient is agreeable with this plan. - Diagnoses Provider Diagnoses: Frequent falls, Weakness, Elevated troponin - Physician Notifications Discussed Care Of Patient With: Savanah Sanford Time Discussed With Above Provider: 13:50 Instructed by Provider To: Other - Accepts patient for admission. Discharge - Sign-Out/Discharge Documenting (check all that apply): Patient Departure - ADMIT - Discharge Plan Condition: Stable Disposition: ADMITTED TO [facility]
--- NOTE | 2018-05-11 13:32 | RAD ---
Indication: Frequent falls. Weakness. Comparison: August 14, 2014 CT Technique: Noncontrast CT vertex of skull through foramen magnum. Report: Mild prominence of the cerebral sulci and cerebellar fissures reflecting atrophy. Proportional mild enlargement of the ventricles. Negative for kay matter white matter obscuration, intra or extra-axial hemorrhage, or mass effect. Decreased density in the periventricular and subcortical white matter while non-specific is most likely due to chronic microangiopathy. No suspicious abnormality of the orbital contents. No fracture or suspicious lesion of the calvarium or skull base evident. Clear partially visualized paranasal sinuses and mastoid air spaces. Unremarkable scalp. IMPRESSION: #. No CT evidence for traumatic brain injury or acute intracranial process evident. #. Mild atrophy and stigmata of chronic small vessel ischemic disease.
--- NOTE | 2018-05-11 13:47 | RAD ---
INDICATION: Fall. Possible injury COMPARISON: Chest x-ray April 05, 2018 TECHNIQUE: An AP seated portable view obtained at 1319 hours is submitted. There is apical lordotic positioning. FINDINGS: Bones/Soft Tissues: There are no acute bony findings. Cardiomediastinal: The cardiomediastinal silhouette is normal. Lungs: There are no infiltrates. The examination is is expiratory in nature. Pleura: There are no pleural effusions. Other: None IMPRESSION: EXPIRATORY IMAGE. NO ACTIVE DISEASE.
--- NOTE | 2018-05-11 13:48 | RAD ---
INDICATION: Fall. Left shoulder injury COMPARISON: None TECHNIQUE: AP, lateral, and oblique views were obtained. FINDINGS: There is no acute fracture. The a.c. and glenohumeral joints are intact. There is minor AC joint osteoarthritis. There is a tiny calcification within the left carotid circulation. IMPRESSION: NO ACUTE BONY FINDINGS.
[2018-05-11] MEDS ORDERED: Aspirin 81 mg CHEW TAB* 81 MG TAB.CHEW PO ONE (14:18)
[2018-05-11] MEDS ORDERED: Ondansetron INJ* 2 MG/ML VIAL IV PRN (15:13)
[2018-05-11] MEDS: Carbidopa/Levodop 25/100 MG TAB(*) PO SCH (17:06)
--- NOTE | 2018-05-11 18:39 | HP ---
CC: Dr. Canas; Dr. Evans; Dr. Palm * HISTORY AND PHYSICAL: DATE OF ADMISSION: 05/11/18 PRIMARY CARE PROVIDER: Dr. Canas. ATTENDING PHYSICIAN WHILE IN THE HOSPITAL: Savanah Sanford DO * (report dictated by Amilcar Lopez NP). CONSULTING NEUROLOGIST: Dr. Evans. CHIEF COMPLAINT: 1. Weakness. 2. Falls. 3. Dizziness. HISTORY OF PRESENT ILLNESS: Ms. Aparicio is a 72-year-old female patient. She carries a history of Parkinson's, depression, anxiety, GERD, hypothyroidism, hyperlipidemia, peptic ulcer disease, spinal stenosis, and a history of diverticulitis. She is coming into the ED today. She says that for the last couple of weeks she has been feeling very fatigued, she has not been wanting to get out of bed, she has just been feeling very tired. She does note that she recently was started on Topamax, she says she has been on this for about a week' s time. She says that she has been just feeling really dizzy and lightheaded. She does not feel the room is spinning, but she notices her gait has been unsteady. She is feeling like she has had too much to drink when she is walking. She denied any facial drooping. She denied having any abdominal pain. She says she has not had any trouble with speech. She denies having any recent fevers or chills. No nausea, vomiting. She denied having any chest pain or any shortness of breath. The patient came into the ED today because she has been falling. She called her primary neurologist because she was concerned due to the weakness and the dizziness. She came to the ER on her own accord because she could not get in to her neurologist's office until Friday this week and she had 2 falls, so she was concerned because of this. She came into the ED. It was noted that her troponin was 0.07. There was concern because of the falls and the weakness and we were asked to evaluate for admission. PAST MEDICAL HISTORY: Significant for: 1. Parkinson's. 2. Depression. 3. Anxiety. 4. GERD. 5. Hypothyroidism. 6. Hyperlipidemia. 7. Peptic ulcer disease. 8. Spinal stenosis. 9. Diverticulitis. PAST SURGICAL HISTORY: The patient has had: 1. Hemorrhoidectomy. 2. Breast reduction. 3. Laparoscopic cholecystectomy. MEDICATIONS: Home meds include: 1. Topamax 50 mg p.o. b.i.d. 2. Ambien 6.25 mg at bedtime as needed. 3. Ergocalciferol 50,000 units p.o. every 14 days. 4. Probiotic 1 capsule p.o. daily. 5. Nardil 15 mg p.o. t.i.d. 6. Zofran 8 mg every 8 hours as needed. 7. Synthroid 125 mcg p.o. daily. 8. Lasix 20 mg p.o. daily. 9. Flonase 2 sprays both nares daily. 10. Bentyl 20 mg p.o. four times daily. 11. Klonopin 1 tablet p.o. t.i.d. 12. Carbidopa/levodopa one tab p.o. t.i.d. before meals. 13. Calcium with vitamin D one tablet p.o. b.i.d. 14. Fioricet 1 tablet p.o. every 8 hours as needed. 15. Symbicort 1 puff inhaled b.i.d. ALLERGIES TO MEDICATIONS: Include NITROGLYCERIN. FAMILY HISTORY: Both her parents had a history of cancer. SOCIAL HISTORY: She does not smoke. She does not drink. Surrogate decision maker is the patient's . REVIEW OF SYSTEMS: There is no documented fever. She is denying having any significant weight change. She is denying having any double vision. She denied any ear discharge. She is denying having any rhinorrhea. She is denying having any sore throat or thyroid enlargement. She does admit to having the recent change in medication with Topamax and vitamin D. She denies having any vomiting or diarrhea. No dysuria, no frequency. She denied having any seizure-like activity. Review of 14 systems was completed, all others negative. PHYSICAL EXAMINATION GENERAL: At this time, Ms. Aparicio is a 72-year-old female patient. She is sitting on the ED stretcher. She does not appear to be in any acute distress. VITAL SIGNS: Blood pressure 108/76, pulse 94, respirations 14, O2 sat 94%, temperature 97.3. HEENT: Head: Atraumatic and normocephalic. Eyes: EOMs are intact. Sclerae anicteric and not pale. Throat: Oral mucosa appears to be moist. No oropharyngeal erythema. NECK: Supple. LUNGS: Clear to auscultation. No wheezes, rales, or rhonchi. HEART: Sounds S1, S2. She had a regular rate and rhythm. No murmurs, rubs, or gallops. ABDOMEN: Soft, flat, nontender. Bowel sounds are present. EXTREMITIES: Pulses were 2+ throughout. She does have 5/5 strength in the upper extremities. In the lower extremities, with plantar and dorsiflexion 5/5 strength, flexion and extension of the knee 5/5 strength, and raising the leg she had 4/5 strength bilaterally. NEUROLOGIC: The patient is awake. She is alert. She is oriented x3. Speech is clear. Tongue midline. Obsmda-[id number] intact bilaterally. Hqvs-ca-vwps, she was able to do bilaterally. She may have some slight ptosis of the right eye. The EOMs were intact. She had no nystagmus. Visual garcia were intact. With standing the patient, she was able to take 1 step. She had very unsteady gait. She did appear to be ataxic. I had to sit her back down quickly because I was afraid that she would fall when she went to go stand. There were no gross other focal deficits. DIAGNOSTIC STUDIES/LAB DATA: The labs today are revealing a WBC of 7.6, RBC of 4.40, hemoglobin of 13.8, hematocrit was 42, platelet count was 240. Her sodium was 137, potassium was 4.1, the chloride was 104, the bicarb was 26, the BUN was 18, the creatinine was 0.95, the glucose was 91, lactic was 0.7, calcium 9.7, mag 2.3. Total bili 0.4, AST 14, alk phos 67. Troponin was 0.07. Albumin was 3.9. TSH was 3.58. She did have multiple imaging in the ED starting out with a chest x-ray, which showed an expiratory image, no active disease. CT brain showed no CT evidence for traumatic brain injury or acute intracranial process evident, mild atrophy and stigmata of chronic small vessel ischemic changes. She had a left shoulder x-ray, which showed no acute bony findings. She did have an EKG obtained today as well, which does show a normal sinus rhythm. She did have ST depression in lead II and III. No ST elevations or T- wave inversions. Looking back previously, the ST segments in lead II were depressed on previous EKGs, but lead III is new. Old medical records were reviewed. ASSESSMENT AND PLAN: Ms. Aparicio is a 72-year-old female patient coming into the ED today with complaints of falls at home and weakness, on evaluation today found to have an elevated troponin of unclear etiology. We were asked to evaluate for admission. She will be admitted under observation status for: 1. Weakness. Again, I suspect this is multifactorial and could be polypharmacy related. She is on Topamax. Since she started, she says she has been taking 50 b.i.d. and that was her initial dose. It certainly could be causing the dizziness, could be causing feeling fatigued. In addition, this can also could lead to ataxia. I am going to try to titrate this med down. I am starting off on 25 b.i.d. for at least 3 days and then 25 once a day for 3 days and then stop. I have asked Neurology to evaluate the patient. For the time being given the fact that to me it looks like she does have some ptosis of the right eye, but I want Neurology to evaluate. CT brain was negative and we will continue to follow. 2. Elevated troponin. It is unclear why this is elevated. She is not having any chest pain. There is little bit of ST depression on her EKG, which does appear to be new in lead III now. I am going to cycle these. She is not having any cardiac symptoms whatsoever. I will get an echo. If they continue to trend up or if there are any findings on the echo, I will get Cardiology involved. She did receive an aspirin here in the ER and I will continue the baby aspirin for now. 3. Parkinson's. Again, it is drug induced. Continue her meds as prescribed. 4. Depression and anxiety. Continue supportive care and meds as prescribed. Follow up with her primary psychiatrist. 5. Hypothyroidism. TSH is stable. 6. History of gastroesophageal reflux disease and peptic ulcer disease. Continue current medical regimen. 7. History of spinal stenosis. I have ordered p.r.n. Tylenol for pain. 8. DVT prophylaxis: She is high risk. She will be placed on heparin subcu. 9. Code status: Full code. 10. Fluids, electrolytes, and nutrition: She can have a heart-healthy diet. TIME SPENT: Time spent on admission was 60 minutes, greater than half the time was spent [id number] with the patient obtaining my history and physical, other half of the time was spent going over the plan of care with the patient and implementing the plan of care. I did discuss the plan of care with my attending, Dr. Sanford, she is in agreement. AMILCAR LOPEZ, ZAHRAA [id number]/CPS #: [id number] GUCCI
[2018-05-11] MEDS: Mometasone/Formoter 100/5 MDI INH SCH (19:33)
[2018-05-11] MEDS: Dicyclomine CAP* 10 MG PO SCH ×2 (19:54→23:46)
[2018-05-11] MEDS: Nystatin TOP POWDER* 15 GM BTL TOPICAL SCH ×2 (20:49→23:45)
[2018-05-11] MEDS: clonazePAM TAB(*) 1 MG PO SCH (20:50)
[2018-05-11] MEDS: Topiramate TAB(*) 25 MG PO SCH (20:50)
[2018-05-11] MEDS: PHENELZINE 15 MG PO SCH (20:51)
[2018-05-11] MEDS: Heparin VIAL(*) 5000 UNITS/ML VIAL (FIVE THOUSAND) SUBCUT SCH (20:51)
[2018-05-11 20:59] LABS: Urine Appearance Cloudy; Urine Blood 1+ (Negative); Urine Color Yellow; Urine Ketones Negative (Negative); Urine Protein Negative (Negative); Urine Red Blood Cell 2+(6-10/hpf) (Absent); Urine Specific Gravity 1.023 (1.010-1.030); Urine Urobilinogen Negative (Negative); Urine White Blood Cell Trace(0-5/hpf) (Absent)
[2018-05-12] MEDS: Heparin VIAL(*) 5000 UNITS/ML VIAL (FIVE THOUSAND) SUBCUT SCH ×3 (05:09→21:12)
[2018-05-12 05:29] LABS: ABS Basophils 0.1 10^3/ul (0-0.2); ABS Eosinophils 0.2 10^3/ul (0-0.6); ABS Lymphocytes 2.5 10^3/ul (1.0-4.8); ABS Neutrophils 4.7 10^3/ul (1.5-7.7); ABS Nucleated RBC 0 10^3/ul; Eosinophil % 2.7 % (0-6); Hematocrit 41 % (35-47); Lymphocyte % 29.2 % (25-47); Mean Corpuscular HGB Conc 34 g/dl (31-36); Mean Corpuscular Hemoglobin 32 pg (27-31); Mean Corpuscular Volume 94 fL (80-97); Mean Platelet Volume 7.5 um3 (7.4-10.4); Nucleated Red Blood Cells % 0; Platelet Count 241 10^3/ul (150-450); Red Blood Count 4.37 10^6/ul (4.00-5.40); Red Cell Distribution Width 14 % (10.5-15); White Blood Count 8.5 10^3/ul (3.5-10.8)
[2018-05-12] MEDS: Acetaminophen TAB* 325 MG PO PRN (05:43)
[2018-05-12 05:56] LABS: EGFR Non-African American 63.3 (>60)
[2018-05-12] MEDS: Mometasone/Formoter 100/5 MDI INH SCH ×2 (08:41→19:03)
[2018-05-12] MEDS: clonazePAM TAB(*) 1 MG PO SCH ×2 (09:25→21:11)
[2018-05-12] MEDS: Aspirin EC TAB* 81 MG TAB.EC PO SCH (09:30)
[2018-05-12] MEDS: Carbidopa/Levodop 25/100 MG TAB(*) PO SCH ×3 (09:30→16:08)
[2018-05-12] MEDS: Topiramate TAB(*) 25 MG PO SCH (09:30)
[2018-05-12] MEDS: Levothyroxine TAB* 125 MCG TAB PO SCH (09:31)
[2018-05-12] MEDS: Dicyclomine CAP* 10 MG PO SCH ×4 (09:32→21:11)
[2018-05-12] MEDS: Nystatin TOP POWDER* 15 GM BTL TOPICAL SCH ×3 (09:33→21:12)
[2018-05-12] MEDS: PHENELZINE 15 MG PO SCH ×3 (09:33→21:11)
--- NOTE | 2018-05-12 10:40 | ECHO ---
Patient: BART ASENCIO [facility] Rec#: [id number] : 1945 Date: 05/12/2018 Age: 72y Height: 170 cm / 66.9 in Weight: 99.8 kg / 220.0 lbs Sex: F BSA: 2.1 Room#: 433 Admit Date#: 05/11/2018 Type: Inpatient Referring: Amilcar Lopez NP Reading: Silas Phan MD Fabricating Machine Operator: Batool Velasquez RN RDCS CC: Yudelka Canas MD Transthoracic Echocardiogram Indication: Abnormal EKG BP: 106/66 HR: 96 Rhythm: NSR Findings History: HLD, thyroid disease, AMY, obesity, Parkinson's disease, PUD, GERD, anxiety, depression. Technical Comments: The study quality is fair. The study is technically limited due to patient body habitus. Completed at 0925. Left Ventricle: The left ventricular chamber size is normal. Mild concentric left ventricular hypertrophy is observed. Septal wall hypertrophy is observed. Basal septal hypertrophy is observed. There is a prominent septal knuckle. Global left ventricular wall motion and contractility are within normal limits. The left ventricle appears hyperdynamic. The estimated ejection fraction is greater than 65%. There is an E to A reversal in the mitral valve flow pattern suggestive of diastolic dysfunction. Left Atrium: The left atrial chamber size is normal. Right Ventricle: The right ventricular cavity size is normal. The right ventricular global systolic function is normal. Right Atrium: The right atrium is not well visualized. Aortic Valve: The aortic valve is trileaflet. The aortic valve leaflets are mildly thickened. There is trace to mild aortic regurgitation. There is no evidence of aortic stenosis. Mitral Valve: The mitral valve leaflets are mildly thickened. There is a trace of mitral regurgitation. There is no evidence of mitral stenosis. Tricuspid Valve: The tricuspid valve leaflets are normal. There is no evidence of tricuspid valve regurgitation. There is no tricuspid stenosis. Pulmonic Valve: The pulmonic valve structure is not well visualized. The pulmonic valve appears normal. There is a trace pulmonic regurgitation. There is no pulmonic stenosis. Pericardium: There is no significant pericardial effusion. A pericardial fat pad is visualized. Aorta: There is no dilatation of the ascending aorta. There is mild dilatation of the aortic arch. There is no dilation of the aortic root. Pulmonary Artery: The main pulmonary artery appears normal. Venous: The venous system is not well visualized. The inferior vena cava appears normal in size. There is a greater than 50% respiratory change in the inferior vena cava dimension. Summary: There was not any prior study for comparison. Conclusions The study quality is fair. There is a prominent septal knuckle. The left ventricle appears hyperdynamic. The estimated ejection fraction is greater than 65%. There is an E to A reversal in the mitral valve flow pattern suggestive of diastolic dysfunction. The aortic valve leaflets are mildly thickened. There is trace to mild aortic regurgitation. There is a trace of mitral regurgitation. There is mild dilatation of the aortic arch. Measurements Name Value Normal Range RVIDd (AP) 2D 2.5 cm (0.9 - 2.6) RVDdMajor (2D) 2.7 cm (2.2 - 4.4) RAd ISD 4CH 4 cm (3.4 - 4.9) IVSd (2D) 1.2 cm (0.6 - 1) LVPWd (2D) 1.2 cm (0.6 - 1) LVIDd (2D) 3.2 cm (3.6 - 5.4) LVIDs (2D) 2.2 cm - LV FS (2D) 31 % (25 - 45) Aortic Annulus 2.1 cm (1.4 - 2.6) Ao root diameter (2D) 3.1 cm (2.1 - 3.5) Ascending Ao 3.4 cm (2.1 - 3.4) Aortic arch 3.5 cm (1.8 - 3.4) LA dimension (AP) 2D 3 cm (2.3 - 3.8) LAd ISD 4CH 4.1 cm (2.9 - 5.3) LA ISD 4CH W 2.8 cm (2.5 - 4.5) Name Value Normal Range MV E-wave Vmax 0.57 m/sec - MV deceleration time 109 msec - MV A-wave Vmax 1.1 m/sec - MV E:A ratio 0.5 ratio - LV septal e' Vmax 0.05 m/sec - LV lateral e' Vmax 0.06 m/sec - LV E:e' septal ratio 11.4 ratio - LV E:e' lateral ratio 9.5 ratio - Name Value Normal Range AV Vmax 1.3 m/sec - AV VTI 19.5 cm - AV peak gradient 5 mmHg - AV mean gradient 3 mmHg - LVOT Vmax 1.1 m/sec - LVOT VTI 17.6 cm - LVOT peak gradient 5 mmHg - LVOT mean gradient 2 mmHg - GOYO Vmax 0.83 m/sec - Name Value Normal Range IVC diameter 1.3 cm - Name Value Normal Range PV Vmax 0.88 m/sec -
[2018-05-12] MEDS ORDERED: clonazePAM TAB(*) 1 MG PO PRN (11:01)
[2018-05-12] MEDS ORDERED: Polyethylene Glycol 3350* 17 GM PACKET PO PRN (11:53)
[2018-05-12] MEDS ORDERED: Senna/Docusate (NF) TAB PO SCH (12:00)
[2018-05-12] MEDS: Senna TAB PO SCH (13:12)
[2018-05-12] MEDS: Docusate CAP* 100 MG PO SCH (13:12)
--- NOTE | 2018-05-12 15:55 | PN ---
Subjective Date of Service: 05/12/18 Interval History: Pt seen and examined. Meds and labs reviewed. ROS: Denied AHUJA/dizziness, F/C, N/V, CP, SOB, increased cough, sputum production , abd pain, diarrhea, constipation, dysuria, myalgias, arthralgias, throat pain , and new skin lesions. The rest of the 14 point ROS are unremarkable. PHYSICAL EXAM: GEN APPEARANCE: Awake, not in acute distress HEENT: NC/AT, PERRLA, moist oral mucosa, (-) throat erythema NECK: Soft, supple, (-) cervical LAD, (-)JVD HEART: S1S2 WNL, RRR, No MRG CHEST: CTA, BL, GAE, No W/R/R ABD: Soft, ND/NT, NABS 4x Q EXT: No C/C/E SKIN: Warm to touch PSYCH: No active psychosis, hallucinations, depression, SI/HI Objective Active Medications: Acetaminophen (Tylenol Tab*) 650 mg PO Q6H PRN PRN Reason: FEVER/PAIN Last Admin: 05/12/18 05:43 Dose: 650 mg Aspirin (Aspirin Ec Tab*) 81 mg PO DAILY [facility] Last Admin: 05/12/18 09:30 Dose: 81 mg Carbidopa/Levodopa (Sinemet 25/100 Tab(*)) 1 tab PO TID AC [facility] Last Admin: 05/12/18 11:20 Dose: 1 tab Clonazepam (Klonopin Tab(*)) 1 mg PO BEDTIME [facility] Clonazepam (Klonopin Tab(*)) 0.5 mg PO BID PRN PRN Reason: ANXIETY Dicyclomine HCl (Bentyl Cap*) 20 mg PO QID [facility] Last Admin: 05/12/18 13:14 Dose: 20 mg Docusate Sodium (Colace Cap*) 100 mg PO DAILY [facility] Last Admin: 05/12/18 13:12 Dose: 100 mg Heparin Sodium (Porcine) (Heparin Vial(*)) 5,000 units SUBCUT Q8HR [facility] Last Admin: 05/12/18 13:15 Dose: 5,000 units Levothyroxine Sodium (Synthroid Tab*) 125 mcg PO DAILY [facility] Last Admin: 05/12/18 09:31 Dose: 125 mcg Mometasone Furoate/Formoterol Fumar (Dulera 100/5 Mdi*) 2 puff INH BID [facility] Last Admin: 05/12/18 08:41 Dose: 2 puff Nystatin (Nystatin Top Powder*) 1 applic TOPICAL TID [facility] Last Admin: 05/12/18 13:15 Dose: 1 applic Ondansetron HCl (Zofran Inj*) 4 mg IV Q6H PRN PRN Reason: NAUSEA Phenelzine Sulfate (Nardil Tab*) 15 mg PO TID [facility] Last Admin: 05/12/18 13:14 Dose: 15 mg Polyethylene Glycol/Electrolytes (Miralax*) 17 gm PO Q48H PRN PRN Reason: CONSTIPATION Last Admin: 05/12/18 13:06 Dose: 17 gm Senna (Senokot Tab*) 2 tab PO DAILY [facility] Last Admin: 05/12/18 13:12 Dose: 2 tab Vital Signs - 8 hr 05/12/18 05/12/18 05/12/18 08:46 09:25 09:32 Temperature Pulse Rate 89 Respiratory 16 18 18 Rate Blood Pressure (mmHg) O2 Sat by Pulse 92 Oximetry 05/12/18 05/12/18 05/12/18 11:09 11:26 13:14 Temperature 99.2 F Pulse Rate 106 Respiratory 20 18 18 Rate Blood Pressure 106/48 (mmHg) O2 Sat by Pulse 92 Oximetry 05/12/18 14:17 Temperature Pulse Rate Respiratory 18 Rate Blood Pressure (mmHg) O2 Sat by Pulse Oximetry Oxygen Devices in Use Now: None Result Diagrams: 05/12/18 05:01 05/12/18 05:01 Assess/Plan/Problems-Billing Assessment: - Patient Problems (1) Weakness Current Visit: Yes Status: Acute Code(s): R53.1 - WEAKNESS SNOMED Code(s) : 66068502 Comment: -D/W Dr. Evans and given pill rolling tremor and other S/S, pt likely has PD or parkinsonism due to polypharmacy and various factors -MRI of the brain and cervical spine are pending -Continue Carbidopa/Levodopa, Clonazepam and d/C of Topiramate by Dr. Evans and will defer (2) Elevated troponin Current Visit: Yes Status: Acute Code(s): R74.8 - ABNORMAL LEVELS OF OTHER SERUM ENZYMES SNOMED Code(s): 500010223 Comment: -Likely due to demand ischemiatrending down/improving -No wall motion abnormalities reported on echo -No history of CP and/or SOB recently -Continue ASA (3) Parkinsonian features Current Visit: Yes Status: Acute Code(s): R25.9 - UNSPECIFIED ABNORMAL INVOLUNTARY MOVEMENTS SNOMED Code(s): 573933353 Comment: -Please see above discussion (4) Hypothyroidism Current Visit: Yes Status: Acute Code(s): E03.9 - HYPOTHYROIDISM, UNSPECIFIED SNOMED Code(s): 27566846 Comment: -Continue Synthroid -TSH WNL (5) DVT prophylaxis Current Visit: Yes Status: Acute Code(s): NXN4603 - SNOMED Code(s): 948296805 Comment: -Continue heparin SQ Status and Disposition: -For D/C home when ready -Will await any further Neurology suggestions
--- NOTE | 2018-05-12 16:46 | RAD ---
INDICATION: History of falls. Parkinsonism COMPARISON: CT brain May 11, 2018 TECHNIQUE: sagittal T1 FLAIR, axial diffusion, axial T1 FLAIR, axial T2, axial T2 FLAIR, and SWI images were acquired. FINDINGS: Craniocervical junction: The craniocervical junction appears normal. Ventricles/sulci: There is mild diffuse cortical volume loss. Brain parenchyma: There are no acute appearing focal parenchymal abnormalities. There are mild, T2 hyperintense foci in the periventricular and subcortical white matter consistent with mild chronic microvascular ischemic change. There is no evidence of intracranial mass or mass effect. The diffusion weighted images show no evidence of acute ischemia. Intracranial hemorrhage: There is no intracranial hemorrhage. Extra-axial spaces: There are no extra-axial fluid collections or masses. Orbits: There are no MR abnormalities of the orbital structures. Paranasal sinuses/mastoid: The paranasal sinuses are clear. The mastoid air cells are well aerated.. Vascular: No abnormalities are seen. Other: None IMPRESSION: MILD AGE-RELATED ATROPHY AND MILD CHRONIC MICROVASCULAR ISCHEMIC CHANGE. NO ACUTE FINDINGS
--- NOTE | 2018-05-12 17:17 | RAD ---
Indication: Hyperreflexia, neck pain. Image Sequences: Sagittal T1, T2, STIR, axial T2 and gradient echo images of the cervical spine were obtained. Vertebral bodies appear normal in height. Normal bone marrow signal is noted. At C2-3, spondylitic ridge flattens the thecal sac. No central or foraminal stenosis is noted. At C3-4, spondylitic ridge flattens the thecal sac. Left uncovertebral joint hypertrophy narrows the left foramen. There may be some mild spinal stenosis at this level. At C4-5, spondylitic ridge flattens the thecal sac. There is flattening of the spinal cord with mild spinal stenosis at this level. Left uncovertebral joint hypertrophy narrows the left foramen. At C5-6, spondylitic ridge flattens the thecal sac and abuts the spinal cord. Bilateral uncovertebral joint hypertrophy narrow both foramina. At C6-7 and C7-T1, minimal spondylitic ridge is noted. The spinal cord demonstrates no evidence of abnormal signal. IMPRESSION: Degenerative disc disease at C2-3, C3-4, C4-5 and C5-6. There may be some mild spinal stenosis at C3-4, C4-5 and C5-6.
--- NOTE | 2018-05-12 21:02 | CONS ---
NEUROLOGY CONSULTATION REPORT: DATE OF CONSULT: 05/12/18 CONSULTING PROVIDER: Amilcar Lopez NP CURRENT PRIMARY PROVIDER: Dr. Regino Coleman. REASON FOR CONSULT: Neurology was consulted to evaluate the patient for falls, right eye ptosis, and Parkinson's disease. CHIEF COMPLAINT: "I feel exhausted over the last 2 weeks." HISTORY OF PRESENT ILLNESS: Ms. Nica Aparicio is a 72-year-old right-handed female who has past medical history significant for drug-induced dystonia and dyskinesia, anxiety, depression, and obstructive sleep apnea, whose is compliant to CPAP. The history was also provided by Nate and Nate Tyson, who were at bedside (spouse and son). Mrs. Aparicio stated that she began developing generalized fatigue 2-weeks ago. She has tremors which seem worse the last few weeks as well. Her tremors have gotten worse, and she has had 3 falls over the last 2 weeks. Her last fall was Friday where she did bump her head while she was inside her closet, but did not lose consciousness. She did not require hospitalization. She did require assistance standing up by her . She feels like her balance has worsened over the last few weeks. She has balance problem for the last 6-7 months. Her son, Nate, stated that she is acting like she just smoked something after starting Topamax. She is currently on Topamax 50 mg twice daily. In addition, she feels that her memory has worsened and she cannot remember what doctors tell her at the same moment. Her son thinks she is getting better since the hospitalization yesterday. The patient again complains of drastic change in her memory and sleep after starting Topamax. She cannot sleep at night if she sleeps throughout the day. She also takes Klonopin 1 mg 3 times daily. She was started on Topamax for headache prevention and to lose weight. She has on average three headaches a week. The headaches are described as unilateral frontal pain, nonradiating, mild and usually last for less than an hour especially when taking Fioricet. She has 3- 4 headaches a week. I reviewed the patient's history in detail. I also reviewed records in [facility]. The patient follows up with Dr. Palm, who is her neurologist as well as Dr. Silver from Psychiatry. The patient was using Rexulti for a few weeks for depression and was switched to Latuda for a few months. Both medications were discontinued due to concern that she may have parkinsonisms related to antipsychotic therapy. The patient is currently taking phenelzine for her depression. Dr. Palm assessed the patient for possible Parkinson's and obtained a DaTscan that was done at the [facility], which was reported by the patient to be negative. The patient also follows up with her primary care doctor who recently ordered a vitamin D level, which was significantly low. She is on vitamin D supplementation. The patient does not complain of ptosis, but Mr. Lopez noticed that she has slight drooping of the right eye on examination yesterday. She denied any double vision. She denied any retroorbital pain. In comparison to picture taken in 2017, the patient had the same ptosis seen currently on examination. She denied any focal weakness or paresthesias. She denied any headaches, double vision, slurred speech, or difficulty swallowing. She denied any visual or auditory hallucinations. It is important to add that the patient was on amantadine for 2 weeks and discontinued the medication due to blurred vision. She is currently taking Sinemet 25/100 half a tablet three times a day, has not noticed any improvement in her tremors. PAST MEDICAL HISTORY: 1. Depression. 2. Anxiety. 3. Parkinson's disease that was thought to be due to antipsychotic therapy. 4. Obstructive sleep apnea. 5. Hypothyroidism. 6. Peptic ulcer disease. 7. GERD. PAST SURGICAL HISTORY: 1. Hemorrhoidectomy. 2. Breast reduction. 3. Laparoscopic cholecystectomy. MEDICATIONS: Home medications includes: 1. Topamax 50 mg p.o. twice daily. 2. Ambien 6.25 mg at bedtime as needed. 3. Vitamin D supplement 50,000 units every 14 days. 4. Probiotic 1 capsule p.o. daily. 5. Nardil 15 mg by mouth 3 times daily. 6. Zofran 8 mg every 8 hours as needed. 7. Synthroid 125 mcg p.o. daily. 8. Lasix 20 mg p.o. daily. 9. Flonase 2 sprays both nares daily. 10. Bentyl 20 mg p.o. 4 times daily. 11. Klonopin 1 tablet p.o. 3 times daily. 12. Carbidopa/levodopa 25/100 to take half a tablet p.o. 3 times daily before meals. 13. Calcium with vitamin D 1 tablet by mouth twice daily. 14. Fioricet 1 tablet by mouth every 8 hours as needed for headaches. 15. Symbicort 1 puff inhaled twice daily. ALLERGIES: NITROGLYCERIN. FAMILY HISTORY: Both parents had history of cancer. Her mother also had depression. Her father due to myocardial infarction. SOCIAL HISTORY: The patient is retired. She denied any tobacco or alcohol use. REVIEW OF SYSTEMS: A 14-point review of systems was obtained and is otherwise negative except for what is mentioned in the HPI. PHYSICAL EXAM: Vital Signs: Temperature 98.4, pulse rate of 99, respiratory rate of 18, oxygen saturation of 92% on room air, and blood pressure of 94/63. General: Well-nourished, well-developed female who is obese and is in no acute distress. Head: Normocephalic, atraumatic without obvious abnormality. Eyes: Conjunctivae/corneals are clear. Neck: Supple and symmetrical with no carotid bruits. Lungs: Clear to auscultation bilaterally. Nonlabored breathing. Cardiovascular: Regular rhythm. Normal S1, S2 with radial pulses that are palpable. Extremities: Normal range of motion with no cyanosis. Skin: No skin lesions or lacerations. Psych: Affect is broad and normal mood. Easy to establish rapport. Neurological Examination: Mental Status: Awake, alert, and oriented to person, place, time, and general circumstances. Speech and language include expression. Naming, repetition, and comprehension were assessed and found to be normal. She does have bradykinesia as well as a masked facies. I did review the patient's handwriting and she does have micrographia. The spiral drawing in the right hand shows a jerky fine amplitude tremor with slight reduction in overall size. Cranial Nerves: Normal confrontation testing bilaterally. There is some pupils that are mid range and reactive to light. Normal consensual response. Extraocular muscles are intact. There is very mild ptosis, but does not fluctuate or fatigue on the right eye. Again, this was compared to a picture from 2017 and there is no change in ptosis. No facial droop. She is able to hear throughout the history process. There is symmetric palate elevation. She has normal strength against shoulder resistance bilaterally. Tongue is symmetrical in midline with no atrophy or fasciculation. Motor: Right/Left: She does have tremors of the upper and lower extremities. Right leg and left arm are greater than the right arm and left leg. Tremors are at rest. The frequency 3-4 Hz, amplitude moderate. No fasciculations were noted. She has strength 5/5 throughout the upper and lower extremities proximal and distal extremities. Reflexes, right/ left: Brachioradialis 2/2, biceps 2/2, triceps 2/1, patella 2/1, ankle 2/1, plantar questionable extensor on the right and flexor on the left. Sensation is intact to light touch throughout, but she does have distal to proximal sensory gradient up to the knees to temperature sensation bilaterally. Proprioception intact at the great toes. Vibration is absent at the toes, but intact at the medial malleolus bilaterally. Coordination: Normal finger-to- nose and no rapid alternating movement. Gait and station causes wide-based gait. Reduce arm swing on the right. She has positive retropulsion. DIAGNOSTIC STUDIES/LAB DATA: WBC of 8.5, hemoglobin 14, hematocrit of 41, platelets of 241. Sodium 138, carbon dioxide 26, potassium 3.7, chloride 103, creatinine of 0.88, BUN 17. TSH 3.58. Vitamin B12 is pending. The patient had a CT head without contrast completed on 05/11/18 that showed no acute intracranial abnormalities. There is no intracranial hemorrhage. I personally reviewed the study. ASSESSMENT AND RECOMMENDATIONS: Ms. Nica Aparicio is a 72-year-old female with history of hypertension, obstructive sleep apnea on CPAP, anxiety, depression, with tremors suggestive of parkinsonism. Neurology was consulted to evaluate for gait imbalance, lightheadedness, and tremors. 1. The resting tremors involving the upper and lower extremities, gait instability, bradykinesia, and micrographia all suggestive of Parkinsonism vs Parkinson's disease. I suspect she has parkinsonism related to her history of exposure to antipsychotic therapy given the reported history of normal ELDON Scan. She was not given the therapeutic dose of Sinemet to see if this is atypical parkinsonism and she may not respond to medication versus this Parkinson's disease that is undertreated. We agreed to trial her on Sinemet 25/100 one tablet 3 times daily. She also agreed to participate with physical therapy and some aerobic exercise at home, which may help with her tremors. We discussed fall precautions. I will order an MRI of the brain without contrast to evaluate for any mid brain atrophy or mass in that region. She will follow up with Dr. Palm in 3-4 weeks. The side effects of Sinemet were discussed with the patient and include, but are not limited to GI disturbance and drowsiness. 2. Generalized fatigue that worsened over the last 2 weeks - I suspect this is related to Topamax and Klonopin use. I discontinued Topamax at this time. I also reduced her Klonopin to 0.5 mg twice a day as needed and 1 mg at nighttime schedule. 3. Right eye ptosis - this is chronic as it was seen in a picture that was provided by Nate, her son, from 1 year ago. The MRI of the brain will help rule out any central etiologies. 4. Gait imbalance and asymmetrical reflexes on examination - we need to rule out any cervical spine pathology such as degenerative disk disease causing cervical spondylosis with myelopathy. I also checked the vitamin B12 level as well as ordered an MRI of the cervical spine without contrast. She will participate with physical therapy today. TIME SPENT: I spent a total of 75 minutes and greater than 50% of that was spent directly, reviewing the medical chart, obtaining history, examining the patient, education, counseling, and discussing the treatment plan and prognosis. I will follow up tomorrow with all the studies and follow up with the patient. [id number] #: [id number] GUCCI
[2018-05-13] MEDS: Heparin VIAL(*) 5000 UNITS/ML VIAL (FIVE THOUSAND) SUBCUT SCH ×2 (05:18→13:36)
[2018-05-13] MEDS: Mometasone/Formoter 100/5 MDI INH SCH ×2 (08:19→20:27)
[2018-05-13] MEDS: Docusate CAP* 100 MG PO SCH (09:01)
[2018-05-13] MEDS: Aspirin EC TAB* 81 MG TAB.EC PO SCH (09:02)
[2018-05-13] MEDS: Carbidopa/Levodop 25/100 MG TAB(*) PO SCH ×3 (09:02→16:51)
[2018-05-13] MEDS: PHENELZINE 15 MG PO SCH ×3 (09:03→22:21)
[2018-05-13] MEDS: Dicyclomine CAP* 10 MG PO SCH ×4 (09:04→20:46)
[2018-05-13] MEDS: Senna TAB PO SCH (09:04)
[2018-05-13] MEDS: Nystatin TOP POWDER* 15 GM BTL TOPICAL SCH ×3 (09:05→22:00)
[2018-05-13] MEDS: Levothyroxine TAB* 125 MCG TAB PO SCH (09:20)
[2018-05-13] MEDS ORDERED: Regadenoson* 0.4 MG/5 ML SYRINGE ONE (11:45)
[2018-05-13] MEDS ORDERED: Aminophylline IV* 25 MG/ML 10 ML VIAL ONE (11:45)
[2018-05-13 12:01] LABS: EGFR Non-African American 72.8 (>60)
[2018-05-13 12:14] LABS: Hematocrit 41 % (35-47); Hemoglobin 13.6 g/dl (12.0-16.0); Mean Corpuscular HGB Conc 33 g/dl (31-36); Mean Corpuscular Hemoglobin 31 pg (27-31); Mean Corpuscular Volume 94 fL (80-97); Red Blood Count 4.35 10^6/ul (4.00-5.40); Red Cell Distribution Width 14 % (10.5-15)
[2018-05-13 13:36] LABS: ABS Basophils 0 10^3/ul (0-0.2); ABS Eosinophils 0.2 10^3/ul (0-0.6); ABS Lymphocytes 3.5 10^3/ul (1.0-4.8); ABS Monocytes 1.3 10^3/ul (0-0.8); ABS Neutrophils 7.9 10^3/ul (1.5-7.7); ABS Nucleated RBC 0 10^3/ul; Eosinophil % 1.7 % (0-6); Lymphocyte % 26.8 % (25-47); Mean Platelet Volume 8.1 um3 (7.4-10.4); Nucleated Red Blood Cells % 0.3; Platelet Count 250 10^3/ul (150-450)
--- NOTE | 2018-05-13 13:43 | PN ---
Subjective Date of Service: 05/13/18 Interval History: She is doing well this morning other than tachycardia on exertion. She denied any dizziness. She denied any focal weakness or paresthesia. Her tremors have improved after the increase in Sinemet. ROS: She denied any CP, SOB, or palpitations. Objective Active Medications: Acetaminophen (Tylenol Tab*) 650 mg PO Q6H PRN PRN Reason: FEVER/PAIN Last Admin: 05/12/18 05:43 Dose: 650 mg Aspirin (Aspirin Ec Tab*) 81 mg PO DAILY [facility] Last Admin: 05/13/18 09:02 Dose: 81 mg Carbidopa/Levodopa (Sinemet 25/100 Tab(*)) 1 tab PO TID AC [facility] Last Admin: 05/13/18 12:43 Dose: 1 tab Clonazepam (Klonopin Tab(*)) 1 mg PO BEDTIME [facility] Last Admin: 05/12/18 21:11 Dose: 1 mg Clonazepam (Klonopin Tab(*)) 0.5 mg PO BID PRN PRN Reason: ANXIETY Dicyclomine HCl (Bentyl Cap*) 20 mg PO QID [facility] Last Admin: 05/13/18 12:43 Dose: 20 mg Docusate Sodium (Colace Cap*) 100 mg PO DAILY [facility] Last Admin: 05/13/18 09:01 Dose: 100 mg Heparin Sodium (Porcine) (Heparin Vial(*)) 5,000 units SUBCUT Q8HR [facility] Last Admin: 05/13/18 05:18 Dose: 5,000 units Levothyroxine Sodium (Synthroid Tab*) 125 mcg PO DAILY [facility] Last Admin: 05/13/18 09:20 Dose: 125 mcg Mometasone Furoate/Formoterol Fumar (Dulera 100/5 Mdi*) 2 puff INH BID [facility] Last Admin: 05/13/18 08:19 Dose: 2 puff Nystatin (Nystatin Top Powder*) 1 applic TOPICAL TID [facility] Last Admin: 05/13/18 09:05 Dose: 1 applic Ondansetron HCl (Zofran Inj*) 4 mg IV Q6H PRN PRN Reason: NAUSEA Phenelzine Sulfate (Nardil Tab*) 15 mg PO TID [facility] Last Admin: 05/13/18 09:03 Dose: 15 mg Polyethylene Glycol/Electrolytes (Miralax*) 17 gm PO Q48H PRN PRN Reason: CONSTIPATION Last Admin: 05/12/18 13:06 Dose: 17 gm Senna (Senokot Tab*) 2 tab PO DAILY [facility] Last Admin: 05/13/18 09:04 Dose: 2 tab Vital Signs 05/12/18 05/12/18 05/12/18 14:17 15:51 15:57 Temperature 97.9 F Pulse Rate 100 Respiratory 18 18 16 Rate Blood Pressure 115/59 (mmHg) O2 Sat by Pulse 94 Oximetry 05/12/18 05/12/18 05/12/18 16:08 19:07 19:16 Temperature 97.0 F Pulse Rate 68 69 Respiratory 18 18 20 Rate Blood Pressure 159/78 (mmHg) O2 Sat by Pulse 91 91 Oximetry 05/12/18 05/12/18 05/12/18 19:20 20:01 20:20 Temperature 97.4 F 97 F Pulse Rate 78 98 Respiratory 18 20 Rate Blood Pressure 187/101 153/78 (mmHg) O2 Sat by Pulse 93 92 Oximetry 05/12/18 05/12/18 05/12/18 20:21 20:40 21:11 Temperature Pulse Rate 120 Respiratory 18 18 Rate Blood Pressure 153/87 (mmHg) O2 Sat by Pulse 94 Oximetry 05/13/18 05/13/18 05/13/18 00:00 00:25 03:15 Temperature 97.8 F Pulse Rate 107 Respiratory 20 18 Rate Blood Pressure 135/47 (mmHg) O2 Sat by Pulse 93 96 Oximetry 05/13/18 05/13/18 05/13/18 03:28 07:31 08:21 Temperature 97.9 F 97.8 F Pulse Rate 101 92 Respiratory 20 20 16 Rate Blood Pressure 112/66 113/75 (mmHg) O2 Sat by Pulse 93 93 Oximetry 05/13/18 05/13/18 09:04 12:43 Temperature Pulse Rate Respiratory 16 18 Rate Blood Pressure (mmHg) O2 Sat by Pulse Oximetry Oxygen Devices in Use Now: None Neurology Exam: General: Obese female in no acute distress. Resting comfortable. HEENT: Normocephelic/atraumatic Neck: Supple Chest: Clear to auscultation bilaterally Cardiovascular: Regular rate and rhythm without murmurs, rubs, gallops Extremities: No clubbing, cyanosis, or edema Neurological Findings: Awake, Alert, Oriented x3 Speech: fluent without dysarthric, repetition intact Cranial Nerve: PEERL, EOM intact, VFF, no nystagmus, face symmetric bilaterally , facial sensation intact Motor: s/s throughout, proximal and distal extremities x4 tone/bulk normal. Mild tremors in the right distal lower extremity. Mild increase in tone in the right upper and lower extremities. Sensation: intact to LT/PP bilaterally upper and lower extremities Deep Tendon Reflex: 1+ symmetric in the upper/lower extremities, Babinski - down going Finger to nose, rapid alternating movements intact Gait: pt is on bedrest due to tachycardia Result Diagrams: 05/13/18 11:27 05/13/18 11:27 Microbiology and Other Data: Microbiology 05/11/18 20:35 Urine Culture - Final Urine Diagnostic Imaging: MRI brain without contrast: no acute intracranial disease. MRI Cervical spine without contrast: diffuse DDD with mild spinal stenosis at multiple levels. Assessment/Plan Mrs. Nica Aparicio is a 72-year-old female who presented with increase episodes of tremors and dizziness. 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 Continue Sinemet 25-100 to take one tablet PO daily. Follow-up with Dr. Palm in 3 weeks. 2. Dizziness and fogginess related to Topamax- that seems to have resolved. I also decreased the Klonopin to 0.5 mg to take twice a day as needed and scheduled 1 mg at night. Discontinued Ambien. She should go home with the new regiment. 3. Tachycardia on exertion- defer to the primary team. Encouraged patient to ambulate and participate with PT. Please consult PT if not yet done. 4. Multilevel degenerative disc disease- discussed neck positioning and minimizing any activity that may cause neck pain. No need for further evaluation. Time spent: 25 minutes of which 50% was spent examining the patient and discussing the treatment plan as mentioned above. I will sign off.
[2018-05-13] MEDS: hydrALAZINE IV* 20 MG/ML VIAL IV SLOW PU PRN (15:16)
--- NOTE | 2018-05-13 15:38 | PN ---
Subjective Date of Service: 05/13/18 Interval History: Pt seen and examined. Meds and labs reviewed. CC: Exertional tachycardia in the setting of mildly elevated troponin without symptoms of CP/SOB ROS: Denied AHUJA/dizziness, F/C, N/V, CP, SOB, increased cough, sputum production , abd pain, diarrhea, constipation, dysuria, myalgias, arthralgias, throat pain , and new skin lesions. The rest of the 14 point ROS are unremarkable. PHYSICAL EXAM: GEN APPEARANCE: Awake, not in acute distress, obese HEENT: NC/AT, PERRLA, moist oral mucosa, (-) throat erythema NECK: Soft, supple, (-) cervical LAD, (-)JVD HEART: S1S2 WNL, RRR, No MRG CHEST: CTA, BL, GAE, No W/R/R ABD: Soft, ND/NT, NABS 4x Q EXT: No C/C/E SKIN: Warm to touch PSYCH: No active psychosis, hallucinations, depression, SI/HI Objective Active Medications: Acetaminophen (Tylenol Tab*) 650 mg PO Q6H PRN PRN Reason: FEVER/PAIN Last Admin: 05/12/18 05:43 Dose: 650 mg Aspirin (Aspirin Ec Tab*) 81 mg PO DAILY [facility] Last Admin: 05/13/18 09:02 Dose: 81 mg Carbidopa/Levodopa (Sinemet 25/100 Tab(*)) 1 tab PO TID AC [facility] Last Admin: 05/13/18 12:43 Dose: 1 tab Clonazepam (Klonopin Tab(*)) 1 mg PO BEDTIME [facility] Last Admin: 05/12/18 21:11 Dose: 1 mg Clonazepam (Klonopin Tab(*)) 0.5 mg PO BID PRN PRN Reason: ANXIETY Dicyclomine HCl (Bentyl Cap*) 20 mg PO QID [facility] Last Admin: 05/13/18 12:43 Dose: 20 mg Docusate Sodium (Colace Cap*) 100 mg PO DAILY [facility] Last Admin: 05/13/18 09:01 Dose: 100 mg Heparin Sodium (Porcine) (Heparin Vial(*)) 5,000 units SUBCUT Q8HR [facility] Last Admin: 05/13/18 13:36 Dose: 5,000 units Hydralazine HCl (Apresoline Iv*) 5 mg IV SLOW PU Q6H PRN PRN Reason: BLOOD PRESSURE Last Admin: 05/13/18 15:16 Dose: 5 mg Levothyroxine Sodium (Synthroid Tab*) 125 mcg PO DAILY [facility] Last Admin: 05/13/18 09:20 Dose: 125 mcg Mometasone Furoate/Formoterol Fumar (Dulera 100/5 Mdi*) 2 puff INH BID [facility] Last Admin: 05/13/18 08:19 Dose: 2 puff Nystatin (Nystatin Top Powder*) 1 applic TOPICAL TID [facility] Last Admin: 05/13/18 13:37 Dose: 1 applic Ondansetron HCl (Zofran Inj*) 4 mg IV Q6H PRN PRN Reason: NAUSEA Phenelzine Sulfate (Nardil Tab*) 15 mg PO TID [facility] Last Admin: 05/13/18 13:35 Dose: 15 mg Polyethylene Glycol/Electrolytes (Miralax*) 17 gm PO Q48H PRN PRN Reason: CONSTIPATION Last Admin: 05/12/18 13:06 Dose: 17 gm Senna (Senokot Tab*) 2 tab PO DAILY [facility] Last Admin: 05/13/18 09:04 Dose: 2 tab Vital Signs - 8 hr 05/13/18 05/13/18 05/13/18 08:21 09:04 11:38 Temperature 98.2 F Pulse Rate 95 Respiratory 16 16 20 Rate Blood Pressure 107/60 (mmHg) O2 Sat by Pulse 93 Oximetry 05/13/18 05/13/18 05/13/18 12:43 14:43 14:50 Temperature 98.1 F Pulse Rate 66 Respiratory 18 16 Rate Blood Pressure 181/88 182/84 (mmHg) O2 Sat by Pulse 95 Oximetry 05/13/18 05/13/18 14:59 15:01 Temperature Pulse Rate Respiratory 18 18 Rate Blood Pressure (mmHg) O2 Sat by Pulse Oximetry Oxygen Devices in Use Now: None Result Diagrams: 05/13/18 11:27 05/13/18 11:27 Microbiology and Other Data: Microbiology 05/11/18 20:35 Urine Culture - Final Urine Diagnostic Imaging: MRI brain without contrast: no acute intracranial disease. MRI Cervical spine without contrast: diffuse DDD with mild spinal stenosis at multiple levels. Assess/Plan/Problems-Billing Mrs. Nica Aparicio is a 72-year-old female who presented with increase episodes of tremors and dizziness. 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 Continue Sinemet 25-100 to take one tablet PO daily. Follow-up with Dr. Palm in 3 weeks. 2. Dizziness and fogginess related to Topamax- that seems to have resolved. I also decreased the Klonopin to 0.5 mg to take twice a day as needed and scheduled 1 mg at night. Discontinued Ambien. She should go home with the new regiment. 3. Tachycardia on exertion- defer to the primary team. Encouraged patient to ambulate and participate with PT. Please consult PT if not yet done. 4. Multilevel degenerative disc disease- discussed neck positioning and minimizing any activity that may cause neck pain. No need for further evaluation. Time spent: 25 minutes of which 50% was spent examining the patient and discussing the treatment plan as mentioned above. I will sign off. - Patient Problems (1) Tachycardia Current Visit: Yes Status: Acute Code(s): R00.0 - TACHYCARDIA, UNSPECIFIED SNOMED Code(s): 4321160 Comment: #Exertional tachycardia: -Given mildly elevated troponin and absence of wall motion abnormality of echo, will obtain a stress test prior to D/C -Non-stress portion today and stress portion in AM -NPO at midnight (2) Weakness Current Visit: Yes Status: Acute Code(s): R53.1 - WEAKNESS SNOMED Code(s) : 85303463 Comment: -D/W Dr. Evans and given pill rolling tremor and other S/S, pt likely has PD or parkinsonism due to polypharmacy and various factors -MRI of the brain and cervical spine are pending -Continue Carbidopa/Levodopa, Clonazepam and d/C of Topiramate by Dr. Evans and will defer -Continue Sinemet 25-100 to take one tablet PO daily. Follow-up with Dr. Palm in 3 weeks. -Dizziness and fogginess related to Topamax- that seems to have resolved. Dr. Evans also decreased the Klonopin to 0.5 mg to take twice a day as needed and scheduled 1 mg at night. Discontinued Ambien. (3) Elevated troponin Current Visit: Yes Status: Acute Code(s): R74.8 - ABNORMAL LEVELS OF OTHER SERUM ENZYMES SNOMED Code(s): 265948478 Comment: -Likely due to demand ischemiatrending down/improving -No wall motion abnormalities reported on echo -No history of CP and/or SOB recently -Continue ASA -For stress test in AM---please see above discussion (4) Parkinsonian features Current Visit: Yes Status: Acute Code(s): R25.9 - UNSPECIFIED ABNORMAL INVOLUNTARY MOVEMENTS SNOMED Code(s): 439004043 Comment: -Please see above discussion (5) Hypothyroidism Current Visit: Yes Status: Acute Code(s): E03.9 - HYPOTHYROIDISM, UNSPECIFIED SNOMED Code(s): 64521584 Comment: -Continue Synthroid -TSH WNL (6) DVT prophylaxis Current Visit: Yes Status: Acute Code(s): ECY1519 - SNOMED Code(s): 742222047 Comment: -Continue heparin SQ Status and Disposition: -Awaiting stress portion of stress test in AM as discussed above
[2018-05-13] MEDS: Acetaminophen TAB* 325 MG PO PRN ×2 (16:51→20:46)
[2018-05-13] MEDS ORDERED: Iohexol 350* (CONTRAST) 500 ML MDV IV ONE (17:43)
[2018-05-13] MEDS ORDERED: Sodium Phosphate ADULT ENEMA* 118 ml bottle PR STA (20:32)
[2018-05-13] MEDS: clonazePAM TAB(*) 1 MG PO SCH (20:47)
[2018-05-13] MEDS: Enoxaparin(*) 100 MG/ML SYR SUBCUT ONE ×2 (20:48→20:51)
--- NOTE | 2018-05-14 07:05 | RAD ---
INDICATION: Epigastric pain with constipation COMPARISON: None TECHNIQUE: Supine and upright views of the abdomen were obtained. FINDINGS: The small bowel and colon appear nondistended. No free intraperitoneal air is seen. No grossly abnormal or pathologic appearing calcifications are noted. Visualized bones are within normal limits for the patient's age. IMPRESSION: Normal abdominal radiograph.
[2018-05-14] MEDS: Carbidopa/Levodop 25/100 MG TAB(*) PO SCH ×3 (07:15→17:11)
[2018-05-14 07:58] LABS: Hematocrit 39 % (35-47); Mean Corpuscular HGB Conc 33 g/dl (31-36); Mean Corpuscular Hemoglobin 31 pg (27-31); Mean Corpuscular Volume 94 fL (80-97); Platelet Count 243 10^3/ul (150-450); Red Blood Count 4.18 10^6/ul (4.00-5.40); Red Cell Distribution Width 14 % (10.5-15); White Blood Count 7.6 10^3/ul (3.5-10.8)
[2018-05-14] MEDS: Mometasone/Formoter 100/5 MDI INH SCH ×2 (08:22→19:55)
[2018-05-14] MEDS: Dicyclomine CAP* 10 MG PO SCH ×2 (10:06→13:17)
[2018-05-14] MEDS: Docusate CAP* 100 MG PO SCH (10:07)
[2018-05-14] MEDS: Levothyroxine TAB* 125 MCG TAB PO SCH (10:07)
[2018-05-14] MEDS: Aspirin EC TAB* 81 MG TAB.EC PO SCH (10:07)
[2018-05-14] MEDS: Senna TAB PO SCH (10:07)
[2018-05-14] MEDS: PHENELZINE 15 MG PO SCH ×3 (10:08→20:55)
[2018-05-14 10:13] LABS: EGFR Non-African American 77.4 (>60)
[2018-05-14] MEDS ORDERED: Aminophylline IV* 25 MG/ML 10 ML VIAL ONE (11:30)
[2018-05-14] MEDS ORDERED: Regadenoson* 0.4 MG/5 ML SYRINGE ONE (11:30)
--- NOTE | 2018-05-14 12:40 | PN ---
Subjective Date of Service: 05/14/18 Interval History: Pt reports she is feeling better stating her tremors have improved and her dizziness has resolved. She continues to have exertional tachycardia with some accompanied SOB reporting she has some chest tightness. She reports she was recently diagnosed with COPD. She denies wheezing. No coughing or sputum production. Reports good appetite. Objective Active Medications: Acetaminophen (Tylenol Tab*) 650 mg PO Q6H PRN PRN Reason: FEVER/PAIN Last Admin: 05/13/18 20:46 Dose: 650 mg Aspirin (Aspirin Ec Tab*) 81 mg PO DAILY [facility] Last Admin: 05/14/18 10:07 Dose: 81 mg Carbidopa/Levodopa (Sinemet 25/100 Tab(*)) 1 tab PO TID AC [facility] Last Admin: 05/14/18 07:15 Dose: 1 tab Clonazepam (Klonopin Tab(*)) 1 mg PO BEDTIME [facility] Last Admin: 05/13/18 20:47 Dose: 1 mg Clonazepam (Klonopin Tab(*)) 0.5 mg PO BID PRN PRN Reason: ANXIETY Dicyclomine HCl (Bentyl Cap*) 20 mg PO QID [facility] Last Admin: 05/14/18 10:06 Dose: 20 mg Docusate Sodium (Colace Cap*) 100 mg PO DAILY [facility] Last Admin: 05/14/18 10:07 Dose: 100 mg Hydralazine HCl (Apresoline Iv*) 5 mg IV SLOW PU Q6H PRN PRN Reason: BLOOD PRESSURE Last Admin: 05/13/18 15:16 Dose: 5 mg Levothyroxine Sodium (Synthroid Tab*) 125 mcg PO DAILY [facility] Last Admin: 05/14/18 10:07 Dose: 125 mcg Mometasone Furoate/Formoterol Fumar (Dulera 100/5 Mdi*) 2 puff INH BID [facility] Last Admin: 05/14/18 08:22 Dose: 2 puff Nystatin (Nystatin Top Powder*) 1 applic TOPICAL TID [facility] Last Admin: 05/13/18 22:00 Dose: Not Given Ondansetron HCl (Zofran Inj*) 4 mg IV Q6H PRN PRN Reason: NAUSEA Phenelzine Sulfate (Nardil Tab*) 15 mg PO TID [facility] Last Admin: 05/14/18 10:08 Dose: 15 mg Polyethylene Glycol/Electrolytes (Miralax*) 17 gm PO Q48H PRN PRN Reason: CONSTIPATION Last Admin: 05/12/18 13:06 Dose: 17 gm Senna (Senokot Tab*) 2 tab PO DAILY [facility] Last Admin: 05/14/18 10:07 Dose: 2 tab Vital Signs - 8 hr 05/14/18 05/14/18 05/14/18 05:49 05:51 05:52 Temperature Pulse Rate Respiratory 17 17 18 Rate Blood Pressure (mmHg) O2 Sat by Pulse Oximetry 05/14/18 05/14/18 05/14/18 05:53 07:56 08:00 Temperature 98.0 F Pulse Rate 87 Respiratory 17 20 18 Rate Blood Pressure 114/85 (mmHg) O2 Sat by Pulse 92 Oximetry 05/14/18 05/14/18 05/14/18 08:26 09:02 10:06 Temperature 97.8 F Pulse Rate 72 98 Respiratory 16 16 16 Rate Blood Pressure 128/71 (mmHg) O2 Sat by Pulse 92 94 Oximetry Oxygen Devices in Use Now: None Appearance: 72 yo A+ox3 in NAD Eyes: No Scleral Icterus, PERRLA Ears/Nose/Mouth/Throat: NL Teeth, Lips, Gums, Mucous Membranes Moist Neck: NL Appearance and Movements; NL JVP Respiratory: Symmetrical Chest Expansion and Respiratory Effort, Clear to Auscultation Cardiovascular: NL Sounds; No Murmurs; No JVD, RRR, No Edema Abdominal: NL Sounds; No Tenderness; No Distention Extremities: No Edema, No Clubbing, Cyanosis Skin: No Rash or Ulcers, No Nodules or Sclerosis Neurological: Alert and Oriented x 3, NL Sensation, NL Muscle Strength and Tone Result Diagrams: 05/14/18 05:17 05/14/18 05:17 Microbiology and Other Data: Microbiology 05/11/18 20:35 Urine Culture - Final Urine Diagnostic Imaging: MRI brain without contrast: no acute intracranial disease. MRI Cervical spine without contrast: diffuse DDD with mild spinal stenosis at multiple levels. Assess/Plan/Problems-Billing Mrs. Nica Aparicio is a 72-year-old female who presented with increase episodes of tremors and dizziness. - Patient Problems (1) Weakness Comment: - improving -D/W Dr. Evans and given pill rolling tremor and other S/S, pt likely has PD or parkinsonism due to polypharmacy and various factors -MRI of the brain and cervical spine are unremarkable - she has noted mild spinal stenosis -Continue Carbidopa/Levodopa, Clonazepam and d/C of Topiramate by Dr. Evans -Continue Sinemet 25-100 to take one tablet PO daily. Follow-up with Dr. Palm in 3 weeks. -Dizziness and fogginess suspect related to Topamax- that seems to have resolved. Dr. Evans also decreased the Klonopin to 0.5 mg to take twice a day as needed and scheduled 1 mg at night. Discontinued Ambien. To be DC'd on new regimen. (2) Tachycardia Comment: Exertional tachycardia: -stress test low risk. Echo showing EF 65% with some noted diastolic dysfunction. - Mildly elevated DDIMER - 316 - age adjusted this would be normal - - possible autonomic dysfunction secondary to parkinsons? plan to obtain orthostatic VS, am cortisol. Will give 1L NS fluid challenge. Discussed with cardiology who also suspects autonomtic. Will obtain further workup and if negative ask cardiology to consult. (3) Elevated troponin Comment: -Likely due to demand ischemiatrending down/improving -No wall motion abnormalities reported on echo -Continue ASA -Stress test low risk (4) Hypothyroidism Comment: -Continue Synthroid -TSH WNL (5) Parkinsonian features Comment: -Please see above discussion (6) DVT prophylaxis Comment: -Continue heparin SQ Status and Disposition: inpatient. home when medically stable
--- NOTE | 2018-05-14 13:12 | RAD ---
Edited for charges. Indication: Elevated troponin. Myocardial perfusion scan performed utilizing pharmacological stress and 25.9 mCi of technetium 99 and tetrofosmin. Rest myocardial perfusion was performed after intravenous injection of 25.5 mCi of technetium 99m tetrofosmin. There is homogeneous distribution of the radiotracer throughout the left ventricle. No evidence of fixed or reversible perfusion defect is identified. No CT was performed. Evaluation of wall motion demonstrates no focal wall motion abnormality. Ejection fraction at stress is 62% and at rest is 59%. IMPRESSION: No fixed or reversible perfusion defect. Normal ejection fraction. ASSESSMENT: Low risk Based on imaging criteria from ACC/AHA 2002 Guideline Update for the Management of Patients With Chronic Stable Angina Table 23. Noninvasive Risk Stratification. MTDD
[2018-05-14] MEDS: Nystatin TOP POWDER* 15 GM BTL TOPICAL SCH ×2 (13:18)
[2018-05-14] MEDS: Acetaminophen TAB* 325 MG PO PRN (15:12)
[2018-05-14] MEDS ORDERED: NS 0.9% 1000 ML* 1,000 ML IV SCH (17:00)
[2018-05-14] MEDS: clonazePAM TAB(*) 1 MG PO SCH (20:55)
[2018-05-15] MEDS ORDERED: Loperamide CAP* 2 MG PO ONE (00:27)
[2018-05-15] MEDS: Acetaminophen TAB* 325 MG PO PRN ×2 (02:09→21:24)
[2018-05-15 05:37] LABS: ABS Basophils 0 10^3/ul (0-0.2); ABS Eosinophils 0.2 10^3/ul (0-0.6); ABS Lymphocytes 2.3 10^3/ul (1.0-4.8); ABS Monocytes 0.8 10^3/ul (0-0.8); ABS Nucleated RBC 0 10^3/ul; Eosinophil % 2.1 % (0-6); Hematocrit 38 % (35-47); Hemoglobin 12.9 g/dl (12.0-16.0); Lymphocyte % 31.6 % (25-47); Mean Corpuscular HGB Conc 34 g/dl (31-36); Mean Corpuscular Hemoglobin 32 pg (27-31); Mean Corpuscular Volume 94 fL (80-97); Nucleated Red Blood Cells % 0.1; Platelet Count 248 10^3/ul (150-450); Red Blood Count 4.03 10^6/ul (4.00-5.40); Red Cell Distribution Width 13 % (10.5-15); White Blood Count 7.3 10^3/ul (3.5-10.8)
[2018-05-15 05:57] LABS: EGFR Non-African American 76.2 (>60)
[2018-05-15] MEDS: Nystatin TOP POWDER* 15 GM BTL TOPICAL SCH ×3 (06:07→16:39)
--- NOTE | 2018-05-15 07:32 | PN ---
Subjective Date of Service: 05/15/18 Interval History: per pt she reports she continues to have an elevated HR and labile blood pressures - she reports she is asymptomatic to this. She denies SOB/CP. No fevers or chills. Objective Active Medications: Acetaminophen (Tylenol Tab*) 650 mg PO Q6H PRN PRN Reason: FEVER/PAIN Last Admin: 05/15/18 02:09 Dose: 650 mg Aspirin (Aspirin Ec Tab*) 81 mg PO DAILY [facility] Last Admin: 05/14/18 10:07 Dose: 81 mg Carbidopa/Levodopa (Sinemet 25/100 Tab(*)) 1 tab PO TID [facility] Last Admin: 05/14/18 17:11 Dose: 1 tab Clonazepam (Klonopin Tab(*)) 1 mg PO BEDTIME [facility] Last Admin: 05/14/18 20:55 Dose: 1 mg Clonazepam (Klonopin Tab(*)) 0.5 mg PO BID PRN PRN Reason: ANXIETY Docusate Sodium (Colace Cap*) 100 mg PO DAILY [facility] Last Admin: 05/14/18 10:07 Dose: 100 mg Heparin Sodium (Porcine) (Heparin Vial(*)) 5,000 units SUBCUT Q12HR [facility] Hydralazine HCl (Apresoline Iv*) 5 mg IV SLOW PU Q6H PRN PRN Reason: BLOOD PRESSURE Last Admin: 05/13/18 15:16 Dose: 5 mg Levothyroxine Sodium (Synthroid Tab*) 125 mcg PO DAILY [facility] Last Admin: 05/14/18 10:07 Dose: 125 mcg Mometasone Furoate/Formoterol Fumar (Dulera 100/5 Mdi*) 2 puff INH BID [facility] Last Admin: 05/14/18 19:55 Dose: 2 puff Nystatin (Nystatin Top Powder*) 1 applic TOPICAL TID [facility] Last Admin: 05/15/18 06:07 Dose: Not Given Ondansetron HCl (Zofran Inj*) 4 mg IV Q6H PRN PRN Reason: NAUSEA Phenelzine Sulfate (Nardil Tab*) 15 mg PO TID [facility] Last Admin: 05/14/18 20:55 Dose: 15 mg Polyethylene Glycol/Electrolytes (Miralax*) 17 gm PO Q48H PRN PRN Reason: CONSTIPATION Last Admin: 05/12/18 13:06 Dose: 17 gm Potassium Chloride (Klor Con Er Tab*) 20 meq PO ONCE ONE Stop: 05/15/18 09:01 Senna (Senokot Tab*) 2 tab PO DAILY [facility] Last Admin: 05/14/18 10:07 Dose: 2 tab Vital Signs - 8 hr 05/14/18 05/15/18 05/15/18 23:46 00:44 01:24 Temperature 98.0 F Pulse Rate 97 Respiratory 16 18 Rate Blood Pressure 128/64 (mmHg) O2 Sat by Pulse 95 93 Oximetry 05/15/18 06:07 Temperature Pulse Rate Respiratory 18 Rate Blood Pressure (mmHg) O2 Sat by Pulse Oximetry Oxygen Devices in Use Now: None Result Diagrams: 05/15/18 05:18 05/15/18 05:18 Microbiology and Other Data: Microbiology 05/11/18 20:35 Urine Culture - Final Urine Diagnostic Imaging: MRI brain without contrast: no acute intracranial disease. MRI Cervical spine without contrast: diffuse DDD with mild spinal stenosis at multiple levels. Assess/Plan/Problems-Billing Mrs. Nica Aparicio is a 72-year-old female who presented with increase episodes of tremors and dizziness. - Patient Problems (1) Weakness Comment: - with dizziness/increased tremors - now much improved -D/W Dr. Evans and given pill rolling tremor and other S/S, pt likely has PD or parkinsonism due to polypharmacy and various factors -MRI of the brain and cervical spine are unremarkable - she has noted mild spinal stenosis -Continue Carbidopa/Levodopa, Clonazepam and d/C of Topiramate by Dr. Evans -Continue Sinemet 25-100 to take one tablet PO daily (increase by neurology). Follow-up with Dr. Palm in 3 weeks. -Dizziness and fogginess suspect related to Topamax- that seems to have resolved. Dr. Evans also decreased the Klonopin to 0.5 mg to take twice a day as needed and scheduled 1 mg at night. Discontinued Ambien. To be DC'd on new regimen. (2) Parkinsonian features Comment: - Drug induced -Please see above discussion (3) Tachycardia Comment: - Exertional tachycardia - unclear etiology - -stress test low risk. Echo showing EF 65% with some noted diastolic dysfunction. -Mildly elevated DDIMER - 316 - age adjusted this would be normal - No right heart starin. Initially thought maybe autonomic dysfunction secondary to parkinsons but discussed with neurology who states she has drug-induced parkinsons and wouldnt correlate, however Sinemet can cause orthostatic hypotention. She was Orthostatic last night which improved with IVF challenge. She continues to have exertional tachycardia... Morning cortisol low at 6 suggesting of possible adrenal insufficiency. Plan for cortisol stim test in am - Plan for CTA today - discussed with radiology d/t her recently having cardiac NM testing and states it is not an issue - renal function wnls (4) Elevated troponin Comment: -Likely due to demand ischemiatrending down/improving -No wall motion abnormalities reported on echo -Continue ASA -Stress test low risk (5) Hypothyroidism Comment: -Continue Synthroid -TSH WNL (6) DVT prophylaxis Comment: -Continue heparin SQ Status and Disposition: inpatient. home when medically stable
[2018-05-15] MEDS: Mometasone/Formoter 100/5 MDI INH SCH ×2 (08:37→20:56)
[2018-05-15] MEDS ORDERED: Potassium Chlor TAB* 20 MEQ TAB.ER PO ONE (09:00)
[2018-05-15] MEDS: Senna TAB PO SCH ×2 (09:02→09:04)
[2018-05-15] MEDS: Aspirin EC TAB* 81 MG TAB.EC PO SCH (09:02)
[2018-05-15] MEDS: Carbidopa/Levodop 25/100 MG TAB(*) PO SCH ×3 (09:02→16:37)
[2018-05-15] MEDS: Levothyroxine TAB* 125 MCG TAB PO SCH (09:02)
[2018-05-15] MEDS: Heparin VIAL(*) 5000 UNITS/ML VIAL (FIVE THOUSAND) SUBCUT SCH ×2 (09:02→21:18)
[2018-05-15] MEDS: Docusate CAP* 100 MG PO SCH ×2 (09:02→09:04)
[2018-05-15] MEDS: PHENELZINE 15 MG PO SCH ×3 (09:59→22:13)
[2018-05-15] MEDS ORDERED: NS 0.9% 500 ML* 500 ML IV ONE (10:21)
[2018-05-15] MEDS: hydrALAZINE IV* 20 MG/ML VIAL IV SLOW PU PRN (16:52)
[2018-05-15] MEDS ORDERED: Iohexol 350* (CONTRAST) 500 ML MDV IV ONE (17:27)
--- NOTE | 2018-05-15 18:02 | RAD ---
INDICATION: Tachycardia. Assess for PE. COMPARISON: May 11, 2018 chest radiograph. TECHNIQUE: Multidetector CT images were obtained from the lung apices to the upper abdomen with 83 mL Omnipaque 350 IV contrast. Pulmonary angiogram protocol. Multiplanar reformation including with maximum intensity projection. REPORT: Mild LEFT greater than RIGHT dependent subsegmental atelectasis. No alveolar consolidation concerning for pneumonia, focal pulmonary lesions, pleural effusions, pneumothorax. Negative for thoracic lymphadenopathy, cardiomegaly, pericardial effusion. Normal diameter thoracic aorta. Large body habitus and motion artifact mildly limits quality of the CT pulmonary angiogram. No filling defects are identified from the main to the segmental and where visible subsegmental pulmonary arteries to indicate pulmonary embolus. Post cholecystectomy. Negative for thoracic fractures or suspicious focal osseous lesions. Diffuse mild to moderate thoracic degenerative spondylosis. IMPRESSION: #. No evidence for pulmonary embolism. #. No acute cardiopulmonary process evident.
[2018-05-15] MEDS: clonazePAM TAB(*) 1 MG PO SCH (21:17)
[2018-05-16] MEDS: Nystatin TOP POWDER* 15 GM BTL TOPICAL SCH ×4 (05:53→21:13)
[2018-05-16] MEDS ORDERED: SODIUM CHLORIDE 0.9% IV ONE (06:00)
[2018-05-16] MEDS ORDERED: COSYNTROPIN IV ONE (06:00)
[2018-05-16] MEDS: Mometasone/Formoter 100/5 MDI INH SCH ×2 (08:42→20:09)
[2018-05-16] MEDS: Docusate CAP* 100 MG PO SCH (09:06)
[2018-05-16] MEDS: Senna TAB PO SCH (09:06)
[2018-05-16] MEDS: Aspirin EC TAB* 81 MG TAB.EC PO SCH (09:15)
[2018-05-16] MEDS: Levothyroxine TAB* 125 MCG TAB PO SCH (09:15)
[2018-05-16] MEDS: Heparin VIAL(*) 5000 UNITS/ML VIAL (FIVE THOUSAND) SUBCUT SCH ×2 (09:15→21:12)
[2018-05-16] MEDS: Carbidopa/Levodop 25/100 MG TAB(*) PO SCH ×3 (09:15→16:32)
[2018-05-16] MEDS: PHENELZINE 15 MG PO SCH ×3 (09:15→21:13)
[2018-05-16] MEDS ORDERED: Loperamide CAP* 2 MG PO STA (09:26)
[2018-05-16] MEDS ORDERED: Loperamide CAP* 2 MG ONE (09:49)
[2018-05-16] MEDS ORDERED: hydrOXYzine HCL TAB* 25 MG PO PRN (16:20)
--- NOTE | 2018-05-16 16:32 | PN ---
Subjective Date of Service: 05/16/18 Interval History: Pt seen and examined. Meds and labs reviewed. CC: Pt complains of anxiety; also complained of diarrhea. Please see discussion below ROS: Denied AHUJA/dizziness, F/C, N/V, CP, SOB, increased cough, sputum production , abd pain, constipation, dysuria, myalgias, arthralgias, throat pain, and new skin lesions. The rest of the 14 point ROS are unremarkable. PHYSICAL EXAM: GEN APPEARANCE: Awake, not in acute distress, obese HEENT: NC/AT, PERRLA, moist oral mucosa, (-) throat erythema NECK: Soft, supple, (-) cervical LAD, (-)JVD HEART: S1S2 WNL, RRR, No MRG CHEST: CTA, BL, GAE, No W/R/R ABD: Soft, ND/NT, NABS 4x Q EXT: No C/C/E SKIN: Warm to touch PSYCH: No active psychosis, hallucinations, depression, SI/HI Objective Active Medications: Acetaminophen (Tylenol Tab*) 650 mg PO Q6H PRN PRN Reason: FEVER/PAIN Last Admin: 05/15/18 21:24 Dose: 650 mg Aspirin (Aspirin Ec Tab*) 81 mg PO DAILY [facility] Last Admin: 05/16/18 09:15 Dose: 81 mg Carbidopa/Levodopa (Sinemet 25/100 Tab(*)) 1 tab PO TID AC [facility] Last Admin: 05/16/18 12:21 Dose: 1 tab Clonazepam (Klonopin Tab(*)) 1 mg PO BEDTIME EDWIN Last Admin: 05/15/18 21:17 Dose: 1 mg Clonazepam (Klonopin Tab(*)) 0.5 mg PO BID PRN PRN Reason: ANXIETY Heparin Sodium (Porcine) (Heparin Vial(*)) 5,000 units SUBCUT Q12HR EDWIN Last Admin: 05/16/18 09:15 Dose: 5,000 units Hydralazine HCl (Apresoline Iv*) 5 mg IV SLOW PU Q6H PRN PRN Reason: BLOOD PRESSURE Last Admin: 05/15/18 16:52 Dose: 5 mg Hydroxyzine HCl (Atarax Tab*) 25 mg PO Q6H PRN PRN Reason: ANXIETY Levothyroxine Sodium (Synthroid Tab*) 125 mcg PO DAILY [facility] Last Admin: 05/16/18 09:15 Dose: 125 mcg Mometasone Furoate/Formoterol Fumar (Dulera 100/5 Mdi*) 2 puff INH BID [facility] Last Admin: 05/16/18 08:42 Dose: 2 puff Nystatin (Nystatin Top Powder*) 1 applic TOPICAL TID [facility] Last Admin: 05/16/18 13:16 Dose: 1 applic Ondansetron HCl (Zofran Inj*) 4 mg IV Q6H PRN PRN Reason: NAUSEA Phenelzine Sulfate (Nardil Tab*) 15 mg PO TID [facility] Last Admin: 05/16/18 13:16 Dose: 15 mg Vital Signs - 8 hr 05/16/18 05/16/18 05/16/18 08:42 09:49 11:26 Temperature Pulse Rate 99 96 Respiratory 16 18 16 Rate Blood Pressure 128/77 (mmHg) O2 Sat by Pulse 93 93 Oximetry 05/16/18 05/16/18 05/16/18 11:44 12:20 15:32 Temperature 98.2 F 97.6 F Pulse Rate 86 Respiratory 18 20 Rate Blood Pressure 148/67 (mmHg) O2 Sat by Pulse 93 Oximetry Oxygen Devices in Use Now: None Result Diagrams: 05/15/18 05:18 05/15/18 05:18 Microbiology and Other Data: Microbiology 05/11/18 20:35 Urine Culture - Final Urine Diagnostic Imaging: MRI brain without contrast: no acute intracranial disease. MRI Cervical spine without contrast: diffuse DDD with mild spinal stenosis at multiple levels. Assess/Plan/Problems-Billing Mrs. Nica Aparicio is a 72-year-old female who presented with increase episodes of tremors and dizziness. - Patient Problems (1) Weakness Current Visit: Yes Status: Acute Code(s): R53.1 - WEAKNESS SNOMED Code(s) : 75943563 Comment: - with dizziness/increased tremors - now much improved -D/W Dr. Evans and given pill rolling tremor and other S/S, pt likely has PD or parkinsonism due to polypharmacy and various factors -MRI of the brain and cervical spine are unremarkable - she has noted mild spinal stenosis -Continue Carbidopa/Levodopa, Clonazepam and d/C of Topiramate by Dr. Evans -Continue Sinemet 25-100 to take one tablet PO daily (increase by neurology). Follow-up with Dr. Palm in 3 weeks. -Dizziness and fogginess suspect related to Topamax- that seems to have resolved. Dr. Evans also decreased the Klonopin to 0.5 mg to take twice a day as needed and scheduled 1 mg at night. Discontinued Ambien. To be DC'd on new regimen. (2) Anxiety Current Visit: Yes Status: Acute Code(s): F41.9 - ANXIETY DISORDER, UNSPECIFIED SNOMED Code(s): 06758719 Comment: -Given above concerns for polypharmacy and recent decrease of her Clonazepam regimen, will place pt on low dose PRN q6H Hydroxizine regimen to mitigate anxiety and balance risks polypharmacyHydroxyzine does not seem to have been reported to have side-effects of Parkinsonism (3) Diarrhea Current Visit: Yes Status: Acute Code(s): R19.7 - DIARRHEA, UNSPECIFIED SNOMED Code(s): 80954981 Comment: -Likely iatrogenic -Will D/C Senna and Colace as well as PRN Miralax -Given 1x dose of Imodium -Will continue watchful waiting (4) Tachycardia Current Visit: Yes Status: Acute Code(s): R00.0 - TACHYCARDIA, UNSPECIFIED SNOMED Code(s): 4429382 Comment: - Exertional tachycardia - unclear etiology although given exhaustive W/U described below and above complaints, anxiety may be contributing. Please see above discussion. -stress test low risk. Echo showing EF 65% with some noted diastolic dysfunction. -Mildly elevated DDIMER - 316 - age adjusted this would be normal - No right heart starin. Initially thought maybe autonomic dysfunction secondary to parkinsons but discussed with neurology who states she has drug-induced parkinsons and wouldnt correlate, however Sinemet can cause orthostatic hypotention. She was Orthostatic last night which improved with IVF challenge. She continues to have exertional tachycardia... Morning cortisol low at 6 suggesting of possible adrenal insufficiency. Plan for cortisol stim test in am - -CTA (-) for PE (5) Elevated troponin Current Visit: Yes Status: Acute Code(s): R74.8 - ABNORMAL LEVELS OF OTHER SERUM ENZYMES SNOMED Code(s): 832418367 Comment: -Likely due to demand ischemiatrending down/improving -No wall motion abnormalities reported on echo -Continue ASA -Stress test low risk (6) Parkinsonian features Current Visit: Yes Status: Acute Code(s): R25.9 - UNSPECIFIED ABNORMAL INVOLUNTARY MOVEMENTS SNOMED Code(s): 413111436 Comment: - Drug induced -Please see above discussion (7) Hypothyroidism Current Visit: Yes Status: Acute Code(s): E03.9 - HYPOTHYROIDISM, UNSPECIFIED SNOMED Code(s): 03635335 Comment: -Continue Synthroid -TSH WNL (8) DVT prophylaxis Current Visit: Yes Status: Acute Code(s): BGU2483 - SNOMED Code(s): 331028173 Comment: -Continue heparin SQ Status and Disposition: -Possible D/C in 1-2 days
[2018-05-16] MEDS: Acetaminophen TAB* 325 MG PO PRN ×2 (16:33→22:53)
[2018-05-16] MEDS ORDERED: NS 0.9% 500 ML* 500 ML IV ONE (18:58)
[2018-05-16] MEDS ORDERED: NS 0.9% 1000 ML* 1,000 ML IV SCH (19:00)
[2018-05-16] MEDS: clonazePAM TAB(*) 1 MG PO SCH (21:12)
[2018-05-17 05:27] LABS: Hematocrit 39 % (35-47); Mean Corpuscular HGB Conc 34 g/dl (31-36); Mean Corpuscular Hemoglobin 31 pg (27-31); Mean Corpuscular Volume 93 fL (80-97); Mean Platelet Volume 7.4 um3 (7.4-10.4); Platelet Count 272 10^3/ul (150-450); Red Blood Count 4.15 10^6/ul (4.00-5.40); Red Cell Distribution Width 14 % (10.5-15); White Blood Count 7.2 10^3/ul (3.5-10.8)
[2018-05-17 05:45] LABS: EGFR Non-African American 81.2 (>60)
[2018-05-17] MEDS: Acetaminophen TAB* 325 MG PO PRN (06:09)
[2018-05-17] MEDS: Levothyroxine TAB* 125 MCG TAB PO SCH (08:05)
[2018-05-17] MEDS: Carbidopa/Levodop 25/100 MG TAB(*) PO SCH ×2 (08:05→13:20)
[2018-05-17] MEDS: PHENELZINE 15 MG PO SCH (08:05)
[2018-05-17] MEDS: Heparin VIAL(*) 5000 UNITS/ML VIAL (FIVE THOUSAND) SUBCUT SCH (08:05)
[2018-05-17] MEDS: Aspirin EC TAB* 81 MG TAB.EC PO SCH (08:05)
[2018-05-17] MEDS: Mometasone/Formoter 100/5 MDI INH SCH (09:14)
[2018-05-17 13:23] VITALS: BP 104/71
--- NOTE | 2018-05-17 18:33 | DS ---
CC: Dr. Sanford; Dr. Raheem Motta; Dr. Junaid Evans; Dr. Yudelka Canas DISCHARGE SUMMERY: DATE OF ADMISSION: 05/13/18 DATE OF DISCHARGE: 05/17/18 DISCHARGE DIAGNOSES: 1. Weakness, likely secondary to parkinsonism due to polypharmacy. 2. Anxiety, improved. 3. Exertional tachycardia likely secondary to orthostasis due to her polypharmacy and possibly due to Sinemet and mild hypovolemia. 4. Elevated troponins likely due to demand, stress test done was negative. 5. History of hypothyroidism. DISCHARGE MEDICATIONS: 1. Budesonide 1 puff inhalation b.i.d. 2. Carbidopa/levodopa 25/100 mg 1 tab p.o. t.i.d. 3. Clonazepam 1 mg p.o. q.h.s. and 0.5 mg p.o. b.i.d. p.r.n. 4. Levothyroxine 125 mg p.o. daily. 5. Nystatin topical powder apply topically t.i.d. to intertriginous folds. 6. Phenelzine 15 mg p.o. t.i.d. 7. She is to discontinue her Fioricet, dicyclomine, Lasix, topiramate, ondansetron, and Ambien. 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 She has had tremors, which seemed to worsen in the last few weeks prior to her admission. She mentions that she has had 3 falls over the last 2 weeks [employer] and was requiring assistance standing up by her . She feels that her balance has worsened over the last few weeks that has started to get worse in the last six to seven months. She also feels that her memory has worsened and cannot remember what her doctors tell her at any moment. She was admitted and was referred to Neurology and has been evaluated by Dr. Evans who believes that her resting tremor is suggestive of parkinsonism likely due to her polypharmacy and hence her medications have been narrowed as discussed above in her medical reconciliation. Dr. Evans elected to place her on low dose Sinemet which she slightly responded to and was advised to take 3 tabs TID and to follow up with Dr. Palm in about 2 to 3 weeks. Her dizziness and fogginess in memory is thought to be related to her Topamax and hence was discontinued and has since resolved. Her Klonopin regimen as described above was also decreased to 0.5 mg p.o. b.i.d. p.r.n. and is scheduled 1 mg p.o. q.h.s. She had been advised to not to take Ambien and hence this was discontinued in her discharge reconciliation meds. During her neurological workup, she had a brain CT on presentation, which did not show any traumatic brain injury not any intracranial process. She also had a brain MRI on 05/12/18 , which shows mild age-related atrophy and mild chronic microvascular ischemic change with no acute findings and a cervical spine MRI that shows degenerative disk disease at the C2-3, C3-4, C4-5 and C5-6. There is also some spinal stenoses at C3-4, C4-5, and C5-6. Her exertional tachycardia was evaluated during her hospital course she had episodes of hypertension and was found to have mildly elevated troponin thought to be due to her tachycardia and hypertension. She had been ruled out for both PE as well as significant coronary artery disease with both 2D echo, which did not show wall motion abnormality and a preserved EF of greater than 65% as well as a stress test with low probability of significant CAD. She also has been ruled out for PE with both a D-dimer adjusted for her age as well as a CT angio. Subsequent evaluation seems to point that her exertional tachycardia is likely related to her orthostatic hypotension when this was further investigated. Her TSH was found to be normal and she underwent cosyntropin test , which was otherwise reassuring. She was found to respond somewhat with fluids , although she did not clinically appear to be dehydrated and fluid bolus challenge overnight as well as maintenance fluids upon repeat her orthostatic vital signs shows resolution of her orthostasis. Although her I/O's were in the mild negative suggesting that mild intravascular hypovolemia in the setting of her Sinemet may be causing some orthostasis. Therefore, she had been advised to follow up with both her primary care physician and as well as neurologist to see whether Sinemet can be either reduced or possibly discontinued if much of her resting tremors is likely due to polypharmacy, especially with her previous regimen of antipsychotic, but we will defer with Dr. Palm and the patient's PCP on follow up to slowly titrate Sinemet to off if possible. In the meantime, she had been advised to arise slowly from supine to a sitting position and to contract her calves for at least 2 to 3 minutes prior to rising slowly before she ambulates. She understands above. The patient has also been evaluated by PT on 05/12/18 who did not identify any needs. She had been advised to follow up and/or call her PCP within 3 days post discharge. She had been instructed that if she is having any problems and/or if her symptoms worsened to call her PCP first to see if her concerns can be addressed in a timely manner. If not or if she had been advised to discuss with her PCP whether [facility] is appropriate and if so, to call [facility] if it is not an emergency. She was advised to call my office regarding any questions, concerns, or further clarifications regarding her discharge plans and/or prescriptions and to take her medications as prescribed, especially with the multiple changes made during her hospitalization stay. REVIEW OF SYSTEMS: The patient denied any recent headaches, dizziness, fevers, chills, nausea, vomiting, chest pain, shortness of breath, increased cough or sputum production, abdominal pain, diarrhea, constipation, pain and increased frequency and urination, myalgias, arthralgias, throat pain or new skin lesions. The rest of the 14-point review of systems is otherwise unremarkable. PHYSICAL EXAMINATION: Vital Signs: Shows most recent vital signs of record with supine blood pressure of 148/81, sitting position of 139/76, standing position of 139/94 with a heart rate of 88 and 106; with 92 beats per minute heart rate, 16 per minute respiratory rate, saturating at 91% on room air. General Appearance: The patient is awake, obese, not in acute distress. HEENT : Normocephalic, atraumatic. PERRLA. Extraocular muscles intact. Negative for icterus. Moist oral mucous. Negative throat erythema. Neck: Soft, supple with no with no cervical lymphadenopathy. No JVD. Heart: S1, S2 within normal limits. Regular rate and rhythm. No murmurs, rubs, or gallops. Chest: Clear to auscultation bilaterally. Good air entry. No wheezes, rales, or rhonchi. Abdomen: Soft, nondistended, and nontender. Normoactive bowel sounds x4 q. Extremities: No cyanosis, clubbing, or edema. Psychiatric: No active psychosis, depression, suicidal or homicidal ideation. Skin: Warm to touch. TIME SPENT: The total time spent evaluating the patient, reviewing pertinent data and appropriate documentation is greater than 30 minutes. [id number]/[facility] #: [id number] [facility] HOSPITALBenjamin
== END 2018-05-17 13:38 | disposition home or self-care (01) | DRG 57 ==
LOC: ED 11:05 → MEDTELE 15:17 → OBSVTOIN 05-13 10:36
PROVIDERS: ADMIT Hospitalist; ATTEND Student in an Organized Health Care Education/Training Program
DX: G21.19 Other drug induced secondary parkinsonism (principal); I24.8 Other forms of acute ischemic heart disease; R42 Dizziness and giddiness; E03.9 Hypothyroidism, unspecified; T42.6X5A Adverse effect of other antiepileptic and sedative-hypnotic drugs, initial encounter; M48.02 Spinal stenosis, cervical region; R19.7 Diarrhea, unspecified; I95.2 Hypotension due to drugs; T42.8X5A Adverse effect of antiparkinsonism drugs and other central muscle-tone depressants, initial encounter; E86.1 Hypovolemia; Y92.239 Unspecified place in hospital as the place of occurrence of the external cause; K21.9 Gastro-esophageal reflux disease without esophagitis; M50.31 Other cervical disc degeneration, high cervical region; M50.322 Other cervical disc degeneration at C5-C6 level; I10 Essential (primary) hypertension; F32.9 Major depressive disorder, single episode, unspecified; F41.9 Anxiety disorder, unspecified; E78.5 Hyperlipidemia, unspecified; H02.401 Unspecified ptosis of right eyelid; G47.33 Obstructive sleep apnea (adult) (pediatric); R29.6 Repeated falls; E66.9 Obesity, unspecified; Z90.49 Acquired absence of other specified parts of digestive tract; Z88.8 Allergy status to other drugs, medicaments and biological substances; Z72.89 Other problems related to lifestyle; Z82.49 Family history of ischemic heart disease and other diseases of the circulatory system; Z87.11 Personal history of peptic ulcer disease; Y92.009 Unspecified place in unspecified non-institutional (private) residence as the place of occurrence of the external cause; Z68.35 Body mass index [BMI] 35.0-35.9, adult; Z80.9 Family history of malignant neoplasm, unspecified
CPT/HCPCS: 36415; 70450; 70551; 71045; 71275; 72141; 74019; 78452; 80048; 80053; 80076; 81003; 81015; 82150; 82533; 82550; 82553; 82607; 83605; 83690; 83735; 84100; 84439; 84443; 84481; 84484; 85025; 85027; 85379; 87086; 93005; 93017; 93306; 94640; 99284; A9270-GY; A9502; J0280; J0360; J0834; J1644; J1650; J2785; Q9967

== ENCOUNTER 2018-12-02 09:40 | Observation (INO) | payer MEDICARE, OTHER ==
[2018-12-02] MEDS ORDERED: Meclizine TAB* 12.5 MG PO ONE (10:45)
--- NOTE | 2018-12-02 10:46 | ED ---
Dizziness - HPI Summary HPI Summary: This patient is a 73 year old F presenting to ED with a chief complaint of dizziness and light-headedness since a little over 1 week ago. The patient rates the pain 7/10 in severity. Symptoms aggravated by walking or movement but reports she is always dizzy. Symptoms alleviated by nothing. She gets off- balance when she walks. Patient reports headache (woke up with the AHJUA at 0430 today), nausea, ear infection (her ears were checked and flushed out), sore throat, and cough. Patient denies fever, CP, and SOB. PMHx of drug-induced parkinsonism. - History Of Current Complaint Chief Complaint: EDDizziness Stated Complaint: DIZZY Time Seen by Provider: 12/02/18 10:22 Hx Obtained From: Patient Onset/Duration: Still Present Timing: Weeks - a little over 1 week ago Severity Initially: Moderate Severity Currently: Moderate - 7/10 Character: Lightheaded, Dizzy Aggravating Factor(s): Other - walking or movement but reports she is always dizzy Alleviating Factor(s): Nothing Associated Signs And Symptoms: Positive: Nausea. Negative: Chest Pain, SOB, Fever - Allergies/Home Medications Allergies/Adverse Reactions: Allergies Allergy/AdvReac Type Severity Reaction Status Date / Time nitroglycerin AdvReac Intermediate Headache Verified 12/02/18 09:45 Home Medications: Home Medications Cholecalciferol TAB* [Vitamin D TAB*] 2,000 units PO DAILY 12/02/18 [History Confirmed 12/02/18] Diazepam TAB(*) [Valium TAB(*)] 5 mg PO TID 12/02/18 [History Confirmed 12/02/18 ] Dicyclomine CAP* [Bentyl CAP*] 20 mg PO QID 12/02/18 [History Confirmed 12/02/18 ] FLUoxetine CAP* [PROzac CAP*] 60 mg PO DAILY 12/02/18 [History Confirmed ] Famotidine TAB 40 MG(NF) [Pepcid TAB 40 MG(NF)] 40 mg PO BID 12/02/18 [History Confirmed 12/02/18] Miconazole Nitrate [Desenex Shake Powder] 2 % EX BID 12/02/18 [History Confirmed 12/02/18] Mirtazapine TAB* [Remeron TAB*] 7.5 mg PO BEDTIME 12/02/18 [History Confirmed ] Mometasone/Formoter 100/5 MDI* [Dulera 100/5 MDI*] 2 puff INH BID 12/02/18 [ History Confirmed 12/02/18] Ondansetron TAB* [Zofran 4 MG Tab*] 8 mg PO Q8HR PRN 12/02/18 [History Confirmed 12/02/18] Propranolol TAB* [Inderal TAB*] 20 mg PO DAILY 12/02/18 [History Confirmed 12/02] Sucralfate TAB* [Carafate*] 1 gm PO QID 12/02/18 [History Confirmed 12/02/18] hydrOXYzine pamoate [Hydroxyzine Pamoate] 50 mg PO Q6HR PRN 12/02/18 [History Confirmed 12/02/18] PMH/Surg Hx/FS Hx/Imm Hx Endocrine/Hematology History: Denies: Hx Diabetes Cardiovascular History: Reports: Hx Angina, Hx Hypertension Denies: Hx Congestive Heart Failure, Hx Coronary Artery Disease, Hx Hypercholesterolemia, Hx Myocardial Infarction, Hx Pacemaker/ICD, Hx Valvular Heart Disease Respiratory History: Reports: Other Respiratory Problems/Disorders Denies: Hx Asthma, Hx Chronic Obstructive Pulmonary Disease (COPD) GI History: Reports: Hx Gall Bladder Disease, Hx Gastroesophageal Reflux Disease , Hx Ulcer, Other GI Disorders - GERD History: Denies: Hx Renal Disease, Other Problems/Disorders Musculoskeletal History: Reports: Hx Back Problems - stenosis Sensory History: Reports: Hx Contacts or Glasses Denies: Hx Hearing Aid Opthamlomology History: Reports: Hx Contacts or Glasses Neurological History: Comment Only: Other Neuro Impairments/Disorders - medication related parkinsons Psychiatric History: Reports: Hx Anxiety, Hx Depression Denies: Hx Panic Disorder, Hx of Violent Episodes Against Others - Surgical History Surgery Procedure, Year, and Place: galbladder 2015. breast reduction. 2017 ( EARLY AUG) LUMBAR - L4-5 - NO HARDWARE PER PT Infectious Disease History: No Infectious Disease History: Reports: Hx Clostridium Difficile Denies: Hx Hepatitis, Hx Human Immunodeficiency Virus (HIV), Hx of Known/ Suspected MRSA, Hx Shingles, Hx Tuberculosis, Traveled Outside the [place] in Last 30 Days - Family History Known Family History: Negative: Blood Disorder - Social History Alcohol Use: None Substance Use Type: Reports: None Smoking Status (MU): Former Smoker Review of Systems Negative: Fever Positive: Sore Throat, Other - ear infection Negative: Chest Pain Positive: Cough. Negative: Shortness Of Breath Positive: Nausea Neurological: Other - dizziness and light-headedness Positive: Headache All Other Systems Reviewed And Are Negative: Yes Physical Exam - Summary Physical Exam Summary: Appearance: Well appearing, no pain distress Skin: warm, dry, reflects adequate perfusion Head/face: normal Eyes: EOMI, PA ENT: normal Neck: supple, non-tender Respiratory: CTA, breath sounds present, she has a cough Cardiovascular: RRR, pulses symmetrical Abdomen: non-tender, soft Musculoskeletal: normal, strength/ROM intact Neuro: sensory motor intact, A&Ox3, Dizzy with movement of the head GCS: 15 Triage Information Reviewed: Yes Vital Signs On Initial Exam: Initial Vitals Temp Pulse Resp BP Pulse Ox 97.5 F 64 20 153/95 95 12/02/18 09:42 12/02/18 09:42 12/02/18 09:42 12/02/18 09:42 12/02/18 09:42 Vital Signs Reviewed: Yes Diagnostics - Vital Signs Vital Signs Temp Pulse Resp BP Pulse Ox 12/02/18 09:42 97.5 F 64 20 153/95 95 - Laboratory Result Diagrams: 12/02/18 11:02 12/02/18 11:02 Lab Statement: Any lab studies that have been ordered have been reviewed, and results considered in the medical decision making process. - Radiology CXR Radiology Interpretation Completed By: Radiologist Summary of Radiographic Findings: NO EVIDENCE FOR ACUTE DISEASE. ED physician has reviewed this radiology report. - CT Brain CT CT Interpretation Completed By: Radiologist Summary of CT Findings: No intracranial mass or hemorrhage is noted although chronic ischemic White matter change is noted. There may be minimal right maxillary sinusitis. ED physician has reviewed this radiology report. Head CTA CT Interpretation Completed By: Radiologist Summary of CT Findings: 1. NO ANEURYSM, VASCULAR MALFORMATION, OCCLUSION, OR STENOSIS OF THE VISUALIZED INTRACRANIAL CIRCULATION. 2. NO INTERNAL CAROTID ARTERY STENOSIS BY NASCET CRITERIA. ED physician has reviewed this radiology report. - EKG 1056 Cardiac Rate: NL - 60 BPM EKG Rhythm: Sinus Rhythm Summary of EKG Findings: No acute changes Dizzy Course/Dx - Course Assessment/Plan: This patient is a 73 year old F presenting to ED with a chief complaint of dizziness and light-headedness since a little over 1 week ago. Blood work/UA obtained. In the ED course, the patient was given Meclizine. Brain CT reveals no intracranial mass or hemorrhage is noted although chronic ischemic White matter change is noted. There may be minimal right maxillary sinusitis. CXR reveals NO EVIDENCE FOR ACUTE DISEASE. EKG done at 1056 reveals NSR at 60 BPM and no acute changes. Head CTA reveals 1. NO ANEURYSM, VASCULAR MALFORMATION, OCCLUSION, OR STENOSIS OF THE VISUALIZED INTRACRANIAL CIRCULATION. 2. NO INTERNAL CAROTID ARTERY STENOSIS BY NASCET CRITERIA. Consulted Dr. Verdin at 1349 about the patient's case and he recommends for the patient to be admitted. Consulted Dr. Crowley at 1403 about the patient's case who said that she spoke to the mental health social worker and will come see the patient in the ED before making a decision whether or not to admit the patient. Consulted Dr. Crowley at 1506 who states that the midlevel will accept the patient for admission. The patient will be admitted with dx of severe vertigo. Patient understands and agrees with this plan. - Diagnoses Differential Diagnosis/HQI/PQRI: Anxiety - dizziness, Other - severe vertigo Provider Diagnoses: Severe vertigo - Provider Notifications Discussed Care Of Patient With: Jong Verdin Time Discussed With Above Provider: 13:49 Instructed by Provider To: Other - Consulted Dr. Verdin about the patient's case and he recommends for the patient to be admitted. Consulted Dr. Crowley at 1403 about the patient's case who said that she spoke to the mental health social worker and will come see the patient in the ED before making a decision whether or not to admit the patient. Consulted Dr. Crowley at 1506 who states that the midlevel will accept the patient for admission. Discharge - Sign-Out/Discharge Documenting (check all that apply): Patient Departure - admit Patient Received Moderate/Deep Sedation with Procedure: No - Discharge Plan Condition: Stable Disposition: ADMITTED TO [facility] - Billing Disposition and Condition Condition: STABLE Disposition: Admitted to [facility] - Attestation Statements Document Initiated by Scribe: Yes Documenting Scribe: Con Jiang Provider For Whom Scribe is Documenting (Include Credential): MD Julia Shortibe Attestation: ICon, scribed for Dennis Hardwick MD on 12/02/18 at 1848. Scribe Documentation Reviewed: Yes Provider Attestation: The documentation as recorded by the scribe, Con Jiang accurately reflects the service I personally performed and the decisions made by me, Dennis Hardwick MD Status of Scribe Document: Viewed
[2018-12-02 11:14] LABS: ABS Basophils 0 10^3/ul (0-0.2); ABS Eosinophils 0.1 10^3/ul (0-0.6); ABS Lymphocytes 2.4 10^3/ul (1.0-4.8); ABS Monocytes 0.6 10^3/ul (0-0.8); ABS Neutrophils 3.6 10^3/ul (1.5-7.7); ABS Nucleated RBC 0 10^3/ul; Eosinophil % 2.2 %; Hematocrit 42 % (35-47); Hemoglobin 13.9 g/dl (12.0-16.0); Lymphocyte % 35.6 %; Mean Corpuscular HGB Conc 33 g/dl (31-36); Mean Corpuscular Hemoglobin 31 pg (27-31); Mean Corpuscular Volume 93 fL (80-97); Mean Platelet Volume 7.4 fL (7.4-10.4); Nucleated Red Blood Cells % 0.1; Platelet Count 308 10^3/ul (150-450); Red Blood Count 4.54 10^6/ul (4.00-5.40); Red Cell Distribution Width 15 % (10.5-15); White Blood Count 6.8 10^3/ul (3.5-10.8)
[2018-12-02 11:23] LABS: Activated Partial Thrombo Time 27.7 seconds (26.0-36.3); INR 0.86 (0.77-1.02)
[2018-12-02 11:32] LABS: Albumin 3.9 g/dL (3.2-5.2); Albumin/Globulin Ratio 1.3 (1-3); Calcium 9.3 mg/dL (8.6-10.3); EGFR African American 72.6 (>60); Potassium 4.1 mmol/L (3.5-5.0); Total Bilirubin 0.4 mg/dL (0.2-1.0); Total Protein 6.9 g/dL (6.4-8.9)
[2018-12-02 12:01] LABS: Urine Appearance Cloudy; Urine Bacteria Absent (Absent); Urine Bilirubin Negative (Negative); Urine Blood 1+ (Negative); Urine Color Yellow; Urine Glucose Negative (Negative); Urine Ketones Negative (Negative); Urine Nitrite Negative (Negative); Urine Protein Negative (Negative); Urine Red Blood Cell Trace(0-2/hpf) (Absent); Urine Specific Gravity 1.016 (1.010-1.030); Urine Squamous Epithelial Cell Present (Absent); Urine Transitional Epithelial Present (Absent); Urine Urobilinogen Negative (Negative); Urine White Blood Cell 1+(6-10/hpf) (Absent)
[2018-12-02] MEDS ORDERED: Iohexol 350* (CONTRAST) 500 ML MDV IV SCH (12:09)
[2018-12-02] MEDS ORDERED: Sulfamethox/Trimethoprim DS 800/160* TAB PO ONE (14:40)
[2018-12-02 15:17] LABS: TSH (Thyroid Stimulating Horm) 28.65 mcIU/mL (0.34-5.60)
[2018-12-02] MEDS ORDERED: Ondansetron TAB* 4 MG PO PRN (15:21)
[2018-12-02] MEDS ORDERED: NS 0.9% 1000 ML** 1,000 ML IV ONE (15:41)
[2018-12-02 16:41] LABS: HDL Cholesterol 48.2 mg/dL
--- NOTE | 2018-12-02 17:28 | HP ---
CC: Dr. Canas; Dr. Palm * HISTORY AND PHYSICAL: DATE OF ADMISSION: 12/02/18 PROVIDER: Tiana Mantilla NP PRIMARY CARE PROVIDER: Dr. Canas. ATTENDING PHYSICIAN WHILE IN THE HOSPITAL: Dr. Pam Crowley * (dictated by Tiana Mantilla NP). CHIEF COMPLAINT: Dizziness. HISTORY OF PRESENT ILLNESS: Ms. Aparicio is a 73-year-old female who carries a past medical history significant for Parkinson's that was drug-induced from Latuda, depression, anxiety, GERD, hypothyroidism, peptic ulcer disease, spinal stenosis, and history of diverticulitis, who presented to the emergency room today with a complaint of dizziness x2 weeks. The patient reports that she was recently admitted to mental [facility] in [place], [place], for medication adjustments. She reports that she needed to be taken off some of her medicines. She reports she was in mental health in [place] for approximately 1 week. During that time, they discontinued her topiramate, Nardil, Klonopin, Sinemet, and Fioricet. The patient reports that 2 days after discharge from the mental health unit around 11/20/18, she did start to develop dizziness and feeling like her head felt heavy. She reports that she also at the same time caught a cold and thought that her symptoms were related to her cold. The patient reports that she feels dizzy and that she has neck pain, feels lightheaded. She states that her head feels heavy. She reports that she has been taking Mucinex DM at home. She also reports nausea. She denies any fever. She does report that her balance continues to be off. She did have balance issues dating back to May. She also reports that she has been getting panic attacks and having increased dreams. Due to the symptoms of dizziness, we were asked to see and evaluate her for admission. While in the emergency room, she had a CT of the brain and a CTA of the neck which were unremarkable. She was given meclizine with no improvement in her dizziness. Due to her continued dizziness, we were asked to admit her. PAST MEDICAL HISTORY: Significant for: 1. Parkinson disease, drug-induced from Latuda. 2. Depression. 3. Anxiety. 4. GERD. 5. Hypothyroidism. 6. Peptic ulcer disease. 7. Spinal stenosis. 8. Diverticulitis. PAST SURGICAL HISTORY: 1. Hemorrhoidectomy. 2. Breast reduction. 3. Cholecystectomy. 4. Bilateral rotator cuff repair. 5. Back surgery. HOME MEDICATIONS: Include: 1. Dulera 100/5 two inhaled twice daily. 2. Zofran 8 mg ODT 1 tablet every 8 hours as needed for nausea and vomiting. 3. Propranolol 20 mg 1 tablet every morning. 4. Prozac 60 mg p.o. daily. 5. Sucralfate 1 g four times daily. 6. Symbicort 2 puffs as needed. 7. Caltrate 600 mg p.o. daily. 8. Vitamin D 2000 units daily. 9. Diazepam 5 mg 1 tablet 3 times a day. 10. Bentyl 20 mg 4 times a day. 11. Pepcid 40 mg b.i.d. 12. Hydroxyzine 50 mg 1 cap every 6 hours as needed for itching or anxiety. 13. Levothyroxine 150 mcg 1 tablet before breakfast. 14. Desenex topically twice daily. 15. Remeron 7.5 mg p.o. at bedtime. ALLERGIES: NITROGLYCERIN. FAMILY HISTORY: Both parents with a history of cancer. Diabetes is unknown. Father with a history of coronary artery disease. SOCIAL HISTORY: The patient denies any smoking, alcohol, or illicit drug use. Surrogate decision maker in the event she is unable to make her own decisions is her . She is a full code. She is . She lives with her . REVIEW OF SYSTEMS: There has been no documented fever. No unintended weight loss. She does report nausea. Denies any chest pain or edema. Does report a cough that she has had since approximately 11/20/18. She denies any hemoptysis or shortness of breath. She does report nausea and diarrhea. Denies any abdominal pain. Denies any hematuria or dysuria. She does report urinary frequency. Denies any focal weakness or sensory loss. Denies any visual complaints, dysphagia, arthralgias, myalgias, rashes, lesions, or open sores. She does report increased anxiety. PHYSICAL EXAMINATION GENERAL: At this time, Ms. Aparicio is a 73-year-old female, lying flat on the stretcher in the emergency room. She does not appear to be in any acute distress. VITAL SIGNS: Blood pressure 147/73, heart rate 72, respirations are 14, O2 saturation 91% on room air, temperature was 97.7. HEENT: Head is atraumatic, normocephalic. Eyes: EOMs are intact. Sclerae anicteric and not pale. Oral mucosa appeared to be moist. She does have some nystagmus with lateral gaze bilaterally. NECK: Supple. LUNGS: Lung sounds with expiratory wheezes bilaterally. No rhonchi or rales. CARDIAC: S1, S2. Regular rate and rhythm. No murmurs, rubs, or gallops. ABDOMEN: Soft and nontender. Bowel sounds are present x4. EXTREMITIES: Pedal pulses are +2 bilaterally. She is able to move all 4 extremities with 5/5 strength. NEUROLOGIC: She is awake, alert, oriented x3. Speech is clear. Thought process is intact. Tongue is midline. Smile is equal. There is no facial asymmetry. She does have nystagmus when looking to the left and to the right. SKIN: Intact. DIAGNOSTIC STUDIES/LAB DATA: WBCs are 6.8, RBCs 4.54, hemoglobin 13.9, hematocrit is 42, platelet count is 308. INR is 0.86. Sodium 140, potassium 4.1, chloride 105, carbon dioxide was 28, anion gap was 7, BUN was 11, creatinine 0.92, lactic acid was 1.1, calcium 9.3. ASTs were 24, ALTs were 37, alkaline phosphatase 67. TSH 28.65. She had a CT of the brain, radiologist's impression: No intracranial mass or hemorrhage is noted, although chronic ischemic white matter changes are noted. There may be minimal right maxillary sinusitis. She had a chest x-ray, radiologist's impression: No evidence of active disease. She had a CT of the head, radiologist's impression: No aneurysm, vascular malformation, occlusion, or stenosis of the visualized intracranial circulation. No internal carotid artery stenosis. She had an electrocardiogram which showed sinus rhythm at a rate of 60. ASSESSMENT AND PLAN: Ms. Aparicio is a 73-year-old female who presented to the emergency room with complaints of dizziness since 11/20/18. The patient reports that she has had recent medication adjustments and new medications started. We were asked to see and evaluate her due to her continued dizziness. She will be admitted under observation for: 1. Dizziness. The patient did receive meclizine in the emergency room. She reports no improvement in the dizziness. The patient reports that she has recently had multiple medication changes as she was inpatient in psychiatric unit in [place], [place]. She also reports that she has had multiple new medications started. This could be a factor contributing to her dizziness. Also within the differential is cerebrovascular accident. We will continue with a cerebrovascular accident workup. The patient already had a CT of the brain and a CTA of the head and neck which were within normal limits. We will get a transthoracic echocardiogram with bubble study. We will get an MRI of the brain which is currently pending. I will place her on telemetry with neuro checks q.2 hours. I will get a lipid profile. The emergency room has consulted Dr. Verdin from Neurology. 2. Anxiety and depression. I will continue the patient on Prozac 60 mg p.o. daily, diazepam, propranolol to help control her depression and anxiety. 3. Gastroesophageal reflux disease. She will continue on sucralfate and Pepcid. 4. Hypothyroidism. The patient recently had her dose of Synthroid increased from 125 mcg to 150 mcg approximately 4 weeks ago. She does have an elevated TSH at 28. She may need further adjustment of this medication. She should continue followup outpatient. 5. DVT prophylaxis: I will place her on Lovenox subcu. 6. Code status: She is a full code. 7. FEN: She can have a regular diet. TIME SPENT: Time spent on this admission was 60 minutes, greater than half that time was spent at the bedside reviewing events leading thus far to her admission, performing my physical exam, and implementing my plan of care. I have discussed this with my attending, Dr. Pam Crowley; she is in agreement with my plan. TIANA CRISTHIAN, COLD STRIP ROLLER [id number]/CPS #: [id number] GUCCI
[2018-12-02] MEDS ORDERED: Scopolamine 1.5 mg* PATCH TRANSDERM SCH (18:00)
[2018-12-02] MEDS: Enoxaparin(*) 40 MG/0.4 ML SYR SUBCUT SCH (18:03)
[2018-12-02] MEDS: Dicyclomine CAP* 10 MG PO SCH ×2 (18:30→22:04)
[2018-12-02] MEDS: Sucralfate TAB* 1 GM PO SCH (18:56)
[2018-12-02] MEDS: Mometasone/Formoter 100/5 MDI INH SCH (20:52)
[2018-12-02] MEDS ORDERED: Fluticasone-Salmeterol 100-50* DISKUS INH SCH (21:00)
[2018-12-02] MEDS ORDERED: guaiFENesin LIQ* 100 MG/5 ML UDC PO ONE (22:02)
[2018-12-02] MEDS: Mirtazapine TAB* 15 MG PO SCH (22:03)
[2018-12-02] MEDS: Diazepam TAB(*) 5 MG PO SCH (22:03)
[2018-12-02] MEDS: Famotidine TAB* 20 MG PO SCH (22:04)
[2018-12-03] MEDS: Sucralfate TAB* 1 GM PO SCH ×4 (00:21→16:31)
[2018-12-03] MEDS: Acetaminophen TAB* 325 MG PO PRN ×2 (04:28→10:21)
[2018-12-03] MEDS: Levothyroxine TAB* 150 MCG TAB PO SCH (06:07)
[2018-12-03] MEDS: Mometasone/Formoter 100/5 MDI INH SCH ×2 (07:41→20:28)
[2018-12-03] MEDS: Diazepam TAB(*) 5 MG PO SCH ×3 (07:49→20:14)
[2018-12-03] MEDS: Dicyclomine CAP* 10 MG PO SCH ×4 (07:49→20:12)
[2018-12-03] MEDS: FLUoxetine CAP* 20 MG PO SCH (07:50)
[2018-12-03] MEDS: Famotidine TAB* 20 MG PO SCH ×2 (07:50→20:13)
[2018-12-03] MEDS: Cholecalciferol TAB* 1000 UNITS PO SCH (07:50)
[2018-12-03] MEDS: Propranolol TAB* 20 MG PO SCH (10:21)
[2018-12-03] MEDS: Meclizine TAB* 12.5 MG PO PRN (10:38)
[2018-12-03 10:54] LABS: BUN/Creatinine Ratio 9.5 (8-20); Calcium 9.1 mg/dL (8.6-10.3); EGFR Non-African American 57.8 (>60); Potassium 3.9 mmol/L (3.5-5.0)
[2018-12-03 11:10] LABS: Free T3 2.8 pg/mL (2.5-3.9)
[2018-12-03 11:12] LABS: Free T4 0.74 ng/dL (0.61-1.12)
--- NOTE | 2018-12-03 11:27 | ECHO ---
Patient: BART ASENCIO [facility] Rec#: [id number] : 1945 Date: 12/03/2018 Age: 73y Height: 165 cm / 65.0 in Weight: 91 kg / 200.6 lbs Sex: F BSA: 1.98 Room#: [facility] Admit Date#: 12/02/2018 Type: Inpatient Referring: Tiana Mantilla Reading: Jeannie Ashton MD Photonics Engineering Technician: Fanny Ortega RDCS CC: Yudelka Canas MD Transthoracic Echocardiogram Indication: Dizziness, CVA. BP: 142/72 HR: 68 Rhythm: NSR Findings History: HTN, hypothyroidism, Parkinson's disease. Technical Comments: The study quality is fair. Completed at 1000. Left Ventricle: The left ventricular chamber size is normal. There is no left ventricular hypertrophy. There is normal left ventricular systolic function. The estimated ejection fraction is 60-65%. There is septal flattening of the interventricular septum consistent with right ventricular volume or pressure overload. Abnormal left ventricular diastolic function is observed. Abnormal left ventricular diastolic filling is observed, consistent with impaired relaxation. Left Atrium: The left atrium is slightly dilated. Right Ventricle: Moderator Band present. The right ventricle is mildly dilated. The right ventricular global systolic function is normal. Right Atrium: The right atrium is mildly dilated. Interatrial septum appears intact without evidence of shunting. The bubble study is negative. A patent foramen ovale is not demonstrated with color Doppler and agitated contrast. Aortic Valve: The aortic valve is trileaflet. The aortic valve leaflets are mildly thickened. There is trace to mild aortic regurgitation. There is no evidence of aortic stenosis. Mitral Valve: There is mitral annular calcification. The mitral valve leaflets are mildly thickened. There is a trace of mitral regurgitation. There is no evidence of mitral stenosis. Tricuspid Valve: The tricuspid valve leaflets are normal. There is trace tricuspid regurgitation. Unable to estimate the right ventricular systolic pressure. There is no tricuspid stenosis. Pulmonic Valve: The pulmonic valve appears normal. There is a trace pulmonic regurgitation. There is no pulmonic stenosis. Pericardium: There is no significant pericardial effusion. A pericardial fat pad is visualized. Aorta: There is mild dilatation of the ascending aorta. There is no dilatation of the aortic arch. The aortic root is normal in size. Pulmonary Artery: The main pulmonary artery is not well visualized. Venous: The inferior vena cava appears normal in size. There is a greater than 50% respiratory change in the inferior vena cava dimension. Contrast: Intravenous agitated saline contrast was used to assess intracardiac shunting. Images 80 and 81. Summary: There are no significant changes when compared to the previous study done on 05/12/2018, no overt sig changes. Conclusions The left ventricular chamber size is normal. The estimated ejection fraction is 60-65%. There is septal flattening of the interventricular septum consistent with right ventricular volume or pressure overload. Abnormal left ventricular diastolic function is observed. The bubble study is negative. A patent foramen ovale is not demonstrated with color Doppler and agitated contrast. There is trace to mild aortic regurgitation. There is a trace of mitral regurgitation. There is trace tricuspid regurgitation. There is mild dilatation of the ascending aorta. Measurements Name Value Normal Range RVIDd (AP) 2D 3.6 cm (0.9 - 2.6) RVDdMajor (2D) 4.5 cm (2.2 - 4.4) RAd ISD 4CH 5.1 cm (3.4 - 4.9) RA (A4C)W 4.6 cm (2.9 - 4.6) IVSd (2D) 0.8 cm (0.6 - 1) LVPWd (2D) 0.9 cm (0.6 - 1) LVIDd (2D) 4.2 cm (3.6 - 5.4) LVIDs (2D) 2.9 cm - LV FS (2D) 31 % (25 - 45) Aortic Annulus 2 cm (1.4 - 2.6) Ao root diameter (2D) 3.5 cm (2.1 - 3.5) Ascending Ao 3.7 cm (2.1 - 3.4) Aortic arch 3.1 cm (1.8 - 3.4) LA dimension (AP) 2D 3.4 cm (2.3 - 3.8) LAd ISD 4CH 5.6 cm (2.9 - 5.3) LA ISD 4CH W 4.2 cm (2.5 - 4.5) Name Value Normal Range LA ESV BP (A/L) index 32 ml/m2 - Name Value Normal Range MV E-wave Vmax 0.5 m/sec - MV deceleration time 342 msec - MV A-wave Vmax 0.7 m/sec - MV E:A ratio 0.7 ratio - LV septal e' Vmax 0.05 m/sec - LV lateral e' Vmax 0.07 m/sec - LV E:e' septal ratio 10 ratio - LV E:e' lateral ratio 7.1 ratio - Name Value Normal Range AV Vmax 1.3 m/sec - AV VTI 27 cm - AV peak gradient 6 mmHg - AV mean gradient 4 mmHg - LVOT Vmax 1.2 m/sec - LVOT VTI 21 cm - LVOT peak gradient 6 mmHg - LVOT mean gradient 2 mmHg - GOYO Vmax 0.6 m/sec - Name Value Normal Range IVC diameter 1.8 cm - Name Value Normal Range PV Vmax 0.9 m/sec - PV peak gradient 3 mmHg -
--- NOTE | 2018-12-03 14:19 | CONS ---
CONSULTATION REPORT: DATE OF CONSULT: 12/03/18 ATTENDING CLINICIAN: EFRAIN Lewis. CONSULTING PHYSICIAN: Dr. Jose Manuel Joshua. REASON FOR CONSULT: Anxiety. SUBJECTIVE HISTORY: Psychiatry is asked to see this 73-year-old white female with a history of anxiety and depression who was just discharged 2 weeks ago from the behavioral science unit at [facility] in [place], [place], and who now reports to our emergency room with symptoms o f dizziness and reported anxiety. Apparently, while she was hospitalized in [place], she was discontin ued off multiple medications including topiramate, Klonopin, Sinemet, Fioricet, zolpidem, and lamotri gine and the primary team was also wondering whether withdrawal from many of these agents might expla in her dizziness. I met the patient on , where she was lying in bed, accompanied by her husba nd whose name is Nate Aparicio. They report that after leaving the hospital she did have 1 episode of a panic attack, but this was about a week and a half ago and thereafter, her anxiety has been largely u nder control. They do note that she had a viral illness with the onset of dizziness approximately a week after leaving [place] and they are awaiting a neurological assessment for this. The patient has r eceived extensive polypharmacy from multiple clinicians in the recent past. While at [facility], they apparently started her on a trial of fluoxetine along with low-dose mirtazapine at night and whaiden le completely detoxifying her from clonazepam, they chose to leave her on low doses of diazepam. The patient states that her mental health has been under control since her discharge. She is awaiting a n intake with psychiatrist, Dr. Ralf David, at the [facility], which is scheduled for 12/15/18. The patient states that her reason for being admitted to [facility] was t o clean up her medications and she denies any suicidal ideations at that point or at any point since. PAST PSYCHIATRIC HISTORY: The patient has a longstanding history of treatment- refractory depression as well as anxiety. Apparently, a year ago, she developed drug-induced parkinsonism from lurasidone . At that time, she chose to stop going to the [facility] where she had be en seen by Dr. Harley Silver for several years. She decided instead to seek treatment with a psychi atrist in the community, but could not find anyone and so in June 2018, she checked herself into the psychiatric unit at [facility] in [place]. There, they placed her on trials of Cymba lta and Zyprexa and discontinued her phenelzine. The patient had a bad experience there and was disc harged to the care of psychiatric nurse practitioner, Arlene Clemens, whom she started seeing in the fall of 2017. Ms. Clemens placed her on Fioricet and Inderal for headaches and continued to hold he r phenelzine. In addition, the patient was started by neurologist, Dr. Evans, on Sinemet and she saw a neurologist named Dr. Stevan Palm for trials of topiramate and lamotrigine. Other than her r ecent hospitalizations at [facility] and [facility], she also had a more remote psychiatric admi ssion at [facility] about 2 years ago where she was treated with Depakote. The frank ent denies any significant history of suicide attempts. SUBSTANCE ABUSE HISTORY: Negative for drugs or alcohol; however, she used to abuse tobacco, having q uit approximately 15 years ago. PAST MEDICAL HISTORY: Significant for hypothyroidism, neuroleptic-induced parkinsonian disease, karlos roesophageal reflux disease, peptic ulcer disease, and spinal stenosis. MEDICATIONS: At the time of admission included: 1. Dulera. 2. Zofran. 3. Propranolol. 4. Prozac 60 mg p.o. daily. 5. Sucralfate. 6. Symbicort. 7. Caltrate. 8. Vitamin D. 9. Valium 5 mg 3 times daily. 10. Bentyl. 11. Pepcid. 12. Hydroxyzine 50 mg as needed for itching or anxiety. 13. Levothyroxine. 14. Desenex. 15. Mirtazapine 7.5 mg p.o. q.h.s. ALLERGIES: She is allergic to NITROGLYCERIN. FAMILY HISTORY: She states that her son has been treated with Effexor for anxiety, whereas her daugh ter has been treated for depression with Zoloft. SOCIAL HISTORY: The patient was born and raised mostly in [place] [facility]. She has been for the past 54 years. She has 2 children including a 51-year-old daughter and 53-year-old son. 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 She retired at the age of 56. The patient was raised Yazdanism; however, she is not currently involved in spiritual or moravian pursuits. She has no significant legal history. MENTAL STATUS EXAM: The patient is an aging, somewhat overweight white female who is sitting up in b ed. She is calm, cooperative, clean, and well groomed. She makes excellent eye contact and it is ea sy to establish a rapport with her. Speech has a normal rate, tone, and volume. Mood is euthymic wi th a full affect. Thought process is linear and goal directed. Thought content is significant for h er desire to figure out what is causing her dizziness. She is denying suicidal or homicidal ideation s. She denies auditory or visual hallucinations. Insight and judgment are fair given her willingnes s to come to the hospital for treatment. Cognitively, she is awake and alert with what would appear to be an average intellect. DIAGNOSES: As follows: [place] I: Major depressive disorder, recurrent, moderate. [place] II: Deferred. ASSESSMENT: The patient is a 73-year-old white female with a history of treatment-refractory depression, who was just discharged from the behavioral science unit at [facility] [place] 2 wee ks ago following several changes in her medications, who now presents to our hospital complaining of recent onset of dizziness. Her anxiety appears to be under control with the current regimen of Proza c, mirtazapine, and diazepam, which was initiated at [facility]. She does have followup already i n place in the community with her psychiatric intake with Dr. David scheduled for 12/15/18. RECOMMENDATIONS TO PRIMARY TEAM: Psychiatry does not feel that the patient is acutely ill and we wou ld not recommend any changes to her current psychiatric regimen. We do encourage her to follow radha mcgarry with her appointment at [facility] and she states that she has every int ention of doing so. At this point, she should be fairly well detoxified by any of the psychiatric me dications that have been altered or discontinued. I do not see a psychiatric etiology for her dizzin ess issues. At this time, Psychiatry will be signing off; however, we can be reconsulted in the even t of any changes in the patient's presentation. [id number]/[facility] #: [id number]
[2018-12-03] MEDS: Enoxaparin(*) 40 MG/0.4 ML SYR SUBCUT SCH (16:31)
[2018-12-03] MEDS ORDERED: Benzonatate CAP* 100 MG PO PRN (17:19)
--- NOTE | 2018-12-03 17:42 | PN ---
Subjective Date of Service: 12/03/18 Interval History: Patient is feeling persistently dizzy. Patient describes vertigo. Patient states she was diagnosed with viral URI 2 weeks ago by PCP and has persistent cough which is intermittently productive. Patient has moderate nausea with dizziness. Dizziness not affected by movement. Patient denies CP, SOB, focal weakness, dysuria, or other pain. Patient complains of headache that has been much worse since stopping [facility] inpatient at [facility]. Patient feels unsafe due to being unable to walk to the bathroom unassisted due to dizziness. Family History: Unchanged from Admission Social History: Unchanged from Admission Past Medical History: Unchanged from Admission Objective Active Medications: Acetaminophen (Tylenol Tab*) 650 mg PO Q4H PRN PRN Reason: FEVER/PAIN Last Admin: 12/03/18 10:21 Dose: 650 mg Benzonatate (Tessalon Cap*) 100 mg PO BID PRN PRN Reason: COUGH Cholecalciferol (Vitamin D Tab*) 2,000 units PO DAILY [facility] Last Admin: 12/03/18 07:50 Dose: 2,000 units Diazepam (Valium Tab(*)) 5 mg PO TID [facility] Last Admin: 12/03/18 13:06 Dose: 5 mg Dicyclomine HCl (Bentyl Cap*) 20 mg PO QID [facility] Last Admin: 12/03/18 16:30 Dose: 20 mg Enoxaparin Sodium (Lovenox(*)) 40 mg SUBCUT Q24H [facility] Last Admin: 12/03/18 16:31 Dose: 40 mg Famotidine (Pepcid Tab*) 40 mg PO BID [facility] Last Admin: 12/03/18 07:50 Dose: 40 mg Fluoxetine HCl (Prozac Cap*) 60 mg PO DAILY [facility] Last Admin: 12/03/18 07:50 Dose: 60 mg Iohexol (Omnipaque 350 (Contrast)-) 80 ml IV ONCE [facility] Stop: 12/04/18 12:08 Last Admin: 12/02/18 12:53 Dose: 80 ml Levothyroxine Sodium (Synthroid Tab*) 150 mcg PO 0600 [facility] Last Admin: 12/03/18 06:07 Dose: 150 mcg Meclizine HCl (Antivert Tab*) 25 mg PO Q8HR PRN PRN Reason: DIZZINESS Last Admin: 12/03/18 10:38 Dose: 25 mg Mirtazapine (Remeron Tab*) 7.5 mg PO BEDTIME [facility] Last Admin: 12/02/18 22:03 Dose: 7.5 mg Mometasone Furoate/Formoterol Fumar (Dulera 100/5 Mdi*) 2 puff INH BID [facility] Last Admin: 12/03/18 07:41 Dose: 2 puff Propranolol HCl (Inderal Tab*) 20 mg PO DAILY [facility] Last Admin: 12/03/18 10:21 Dose: 20 mg Scopolamine (Transderm-Scop 1.5 Mg Patch*) 1 patch TRANSDERM Q72H [facility] Last Admin: 12/02/18 18:03 Dose: 1 patch Sucralfate (Carafate*) 1 gm PO QID [facility] Last Admin: 12/03/18 16:31 Dose: 1 gm Vital Signs - 8 hr 12/03/18 12/03/18 12/03/18 10:27 11:07 11:19 Temperature 98.0 F 97.2 F Pulse Rate 63 64 Respiratory 18 18 16 Rate Blood Pressure 79/55 119/64 (mmHg) O2 Sat by Pulse 91 95 Oximetry 12/03/18 12/03/18 12/03/18 13:06 14:44 16:03 Temperature 98.0 F Pulse Rate 59 Respiratory 18 16 18 Rate Blood Pressure 94/54 (mmHg) O2 Sat by Pulse 92 Oximetry 12/03/18 16:30 Temperature Pulse Rate Respiratory 18 Rate Blood Pressure (mmHg) O2 Sat by Pulse Oximetry Oxygen Devices in Use Now: None Appearance: Patient is a 73yo female who appears stated age and is sitting in the bed in [facility]. Eyes: No Scleral Icterus, PERRLA Ears/Nose/Mouth/Throat: NL Teeth, Lips, Gums, Clear Oropharnyx, Mucous Membranes Moist, - - Tympanic Membranes and auditory canals unremarkable. Neck: NL Appearance and Movements; NL JVP, Trachea Midline Respiratory: Symmetrical Chest Expansion and Respiratory Effort, Clear to Auscultation Cardiovascular: NL Sounds; No Murmurs; No JVD, RRR, No Edema Abdominal: NL Sounds; No Tenderness; No Distention, No Hepatosplenomegaly Lymphatic: No Cervical Adenopathy Extremities: No Edema, No Clubbing, Cyanosis Skin: No Rash or Ulcers, No Nodules or Sclerosis Neurological: Alert and Oriented x 3, NL Sensation, NL Muscle Strength and Tone , - - Slight nystagmus with leftward gaze. Slightly Positive Romberg. Cerebellar Testing performed without difficulty. Result Diagrams: 12/02/18 11:02 12/03/18 10:12 Microbiology and Other Data: Microbiology 12/02/18 11:00 Urine Culture - Final Urine Assess/Plan/Problems-Billing Assessment: Patient is a 73yo female with a PMH for anxiety, drug induced parkinsonism, PUD who is here with intractable dizziness with ambulatory dysfunction with a recent history of URI who is improving with symptomatic treatment. - Patient Problems (1) Dizziness Current Visit: Yes Status: Acute Code(s): R42 - DIZZINESS AND GIDDINESS SNOMED Code(s): 653296185 Comment: - Not affected by head movement - Recent URI, Possibly vestibular neuronitis, accompanied by slight decrease of hearing acuity - Continue meclizine and scopalamine patch - Improving, appreciate neurological input (2) Anxiety Current Visit: No Status: Acute Code(s): F41.9 - ANXIETY DISORDER, UNSPECIFIED SNOMED Code(s): 56920499 Comment: - Continue Fluoxetine, could consider Cymbalta per Neurology - Continue Valium and Mirtazepine - Recent discontinuation of numerous psychiatric medications while inpatient. - Appreciate psychiatry input, no medication changes, follow up outpatient. (3) Parkinsonian features Current Visit: No Status: Acute Code(s): R25.9 - UNSPECIFIED ABNORMAL INVOLUNTARY MOVEMENTS SNOMED Code(s): 598010173 Comment: - Drug induced - Appreciate Neurological input, no medication needed at this time. (4) Full code status Current Visit: Yes Status: Acute Code(s): Z78.9 - OTHER SPECIFIED HEALTH STATUS SNOMED Code(s): 786710924 (5) DVT prophylaxis Current Visit: No Status: Acute Code(s): EZE3354 - SNOMED Code(s): 128190469 Comment: - Continue heparin SQ Status and Disposition: Observation for dizziness, hopeful D/C tomorrow.
[2018-12-03] MEDS: Mirtazapine TAB* 15 MG PO SCH (20:14)
[2018-12-04] MEDS: Sucralfate TAB* 1 GM PO SCH ×3 (02:40→13:30)
[2018-12-04] MEDS: Acetaminophen TAB* 325 MG PO PRN (05:49)
[2018-12-04] MEDS: Levothyroxine TAB* 150 MCG TAB PO SCH (05:49)
[2018-12-04 07:01] LABS: ABS Basophils 0 10^3/ul (0-0.2); ABS Eosinophils 0.1 10^3/ul (0-0.6); ABS Lymphocytes 2.2 10^3/ul (1.0-4.8); ABS Monocytes 0.6 10^3/ul (0-0.8); ABS Neutrophils 2.6 10^3/ul (1.5-7.7); ABS Nucleated RBC 0 10^3/ul; Eosinophil % 2.2 %; Hematocrit 41 % (35-47); Hemoglobin 13.6 g/dl (12.0-16.0); Lymphocyte % 40.1 %; Mean Corpuscular HGB Conc 33 g/dl (31-36); Mean Corpuscular Hemoglobin 31 pg (27-31); Mean Corpuscular Volume 93 fL (80-97); Mean Platelet Volume 7.6 fL (7.4-10.4); Nucleated Red Blood Cells % 0.2; Platelet Count 278 10^3/ul (150-450); Red Blood Count 4.42 10^6/ul (4.00-5.40); Red Cell Distribution Width 15 % (10.5-15); White Blood Count 5.5 10^3/ul (3.5-10.8)
[2018-12-04 07:07] LABS: BUN/Creatinine Ratio 11.8 (8-20); Calcium 8.6 mg/dL (8.6-10.3); EGFR African American 90.5 (>60); EGFR Non-African American 74.8 (>60); Magnesium 2.1 mg/dL (1.9-2.7); Potassium 3.9 mmol/L (3.5-5.0)
[2018-12-04] MEDS: Mometasone/Formoter 100/5 MDI INH SCH (07:20)
[2018-12-04] MEDS: Famotidine TAB* 20 MG PO SCH (08:07)
[2018-12-04] MEDS: Meclizine TAB* 12.5 MG PO PRN (08:07)
[2018-12-04] MEDS: Cholecalciferol TAB* 1000 UNITS PO SCH (08:08)
[2018-12-04] MEDS: Propranolol TAB* 20 MG PO SCH (08:12)
[2018-12-04] MEDS: Diazepam TAB(*) 5 MG PO SCH ×2 (08:12→13:32)
[2018-12-04] MEDS: Dicyclomine CAP* 10 MG PO SCH ×2 (08:12→13:32)
[2018-12-04] MEDS: FLUoxetine CAP* 20 MG PO SCH (08:12)
[2018-12-04] MEDS: Enoxaparin(*) 40 MG/0.4 ML SYR SUBCUT SCH (15:14)
[2018-12-04 15:54] VITALS: BP 119/62
--- NOTE | 2018-12-07 00:07 | DS ---
CC: Dr. Canas * DISCHARGE SUMMARY: DATE OF ADMISSION: 12/02/18 DATE OF DISCHARGE: 12/04/18 PRIMARY CARE PROVIDER: Dr. Canas. ATTENDING PHYSICIAN: Dr. Coleman *(dictated by Marta Kamara NP). PRIMARY DIAGNOSES: 1. Dizziness. 2. Depression, anxiety. 3. Hypothyroid. SECONDARY DIAGNOSIS: Gastroesophageal reflux disease. CONSULTATIONS WHILE IN THE HOSPITAL: Dr. Joshua, psychiatry; Dr. Verdin, neurology. PROCEDURES WHILE IN THE HOSPITAL: No procedures. STUDIES WHILE IN THE HOSPITAL: 1. Brain CT: Impression: No intracranial mass or hemorrhage is noted, although chronic ischemic white matter change is noted. There may be minimal right maxillary sinusitis. 2. EKG: Impression: Junctional rhythm. No ST changes. 3. Chest x-ray: Impression: No evidence of acute disease. 4. Head CTA: Impression: No aneurysm, vascular malformation, occlusion, or stenosis of the visualized intracranial circulation. No intracranial carotid stenosis. 5. Brain MRI: Impression: No evidence of acute intracranial abnormality. Findings consistent with mild chronic small-vessel ischemic change. 6. Transthoracic echocardiogram: Impression: Left ventricular chamber size is normal. Estimated ejection fraction is 60% to 65%. Septal flattening of the interventricular septum consistent with right ventricular volume and pressure overload. Abnormal left ventricular diastolic dysfunction observed. Bubble study is negative. A patent foramen ovale is not demonstrated with color Doppler and agitated contrast. Uyahi-iq-[id number] aortic regurgitation. Trace mitral regurgitation. Trace tricuspid regurgitation. Mild dilatation of the ascending aorta. DISCHARGE HOME MEDICATIONS: Hope Medications: 1. Tessalon 100 mg p.o. t.i.d. p.r.n., cough. 2. Meclizine 25 mg p.o. q.8 hours p.r.n., dizziness. 3. Scopolamine patch 1.5 mg 1 patch transdermally q.72 hours p.r.n. Continued Home Medications: 1. Carafate 1 g p.o. 4 times a day. 2. Prozac 60 mg p.o. daily. 3. Symbicort 80/4.5 one puff inhalation b.i.d. 4. Propranolol 20 mg p.o. daily. 5. Ondansetron 8 mg p.o. q.8 hours p.r.n. 6. Dulera 100/5 two puffs inhalation b.i.d. 7. Remeron 7.5 mg p.o. at bedtime. 8. Desenex 2% b.i.d. 9. Hydroxyzine 50 mg p.o. q.6 hours p.r.n. 10. Pepcid 40 mg p.o. b.i.d. 11. Bentyl 20 mg p.o. 4 times a day 12. Valium 5 mg p.o. t.i.d. 13. Vitamin D 2000 units p.o. daily. 14. Synthroid 150 mcg p.o. daily. 15. Calcium carbonate/vitamin D3 one tablet p.o. b.i.d. a.c. Changed Medications: No home medications changed. Discontinued Home Medications: No home medications discontinued. HISTORY OF PRESENT ILLNESS/HOSPITAL COURSE: Mrs. 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 Please see history and physical dictated by Tiana Mantilla NP, for a complete summary of events leading up to the hospitalization, but in short, patient had been dizzy for 2 weeks. She also reports she feels lightheaded. She reports she recently started having URI type symptoms prior to dizziness onset. In addition, she also had been taken off some of her medications during an acute hospital stay in [place], [place], for mental health reasons. Due to dizziness, patient was admitted for further evaluation and treatment. While in the emergency room, she had imaging which was negative. She was also given meclizine, with no improvement of her dizziness. While hospitalized, patient was seen by Neurology, who suspected vestibular neuronitis due to recent URI. Patient was continued on meclizine and scopolamine patch, which did show improvement with her dizziness. Due to the patient's recent inpatient hospital stay for a mental illness and medication adjustment, patient was seen by psychiatry. No medication changes or further inpatient psychiatric hospitalizations were deemed necessary. It was recommended the patient follow up with her primary outpatient mental health clinician as an outpatient. It was also recommended the patient continue her current mental health medications. Today, patient reports dizziness has improved and she has been able to walk without difficulty. She also reports that she realized the dizziness started after her ears were flushed at her primary care physician's office due to blockage. Patient is safe for discharge home today, 12/04/18. Vital signs as follows: Temperature 98.1, HR 63, RR 16, O2 sat 92% on room air , BP 119/62. LABORATORY DATA: WBC 5.5, hemoglobin 13.6, hematocrit 41, platelets 278. Sodium 140, potassium 3.9, chloride 108, carbon dioxide 26, BUN 9, creatinine 0.76, glucose 87. TSH 30.73. REVIEW OF SYSTEMS: Patient reports dizziness has greatly improved. She reports she does have some slight dizziness with head movement today, but it is much improved from previously. Patient denies headache, weakness, numbness, tingling, chest pain, palpitations, shortness of breath, nausea, vomiting, diarrhea, urinary symptoms. A 12-point review of systems was completed and all those were negative. PHYSICAL EXAM: General: Mrs. Aparicio is a 73-year-old female who is sitting in bed, in no acute distress, appears stated age. Family at bedside. HEENT: EOMs intact. PERRLA. Oral mucosa is moist without lesion. Posterior pharynx is clear. External auditory canals are clear and patent. Tympanic membranes are within normal limits with good light reflex. Neck: Supple. No lymphadenopathy. Full range of motion. Cardiac: S1, S2 present. No murmurs, rubs, or gallops. Regular rate and rhythm. Respiratory: Lungs are clear. No rhonchi, wheezes, rales. Abdomen: Soft, nontender. Bowel sounds x4. Extremities: No edema. No clubbing or cyanosis. No pain or deformities. Skin : The skin is intact. Neuro: Cranial nerves II through XII are grossly intact. Coordination intact. Sensation intact. Strength is 5/5 throughout. No drift. No focal weakness or deficits. DISCHARGE PLAN/FOLLOWUP: 1. Dizziness: As mentioned above, it is suspected patient suffered from possible vestibular neuronitis due to recent URI. Patient has improved and is, therefore, stable for discharge. Patient has been provided with meclizine and scopolamine as needed. Patient should follow with her primary care in 1 to 2 weeks. If the patient and her primary care feel she needs further evaluation by neurology, she should be referred appropriately. 2. Upper respiratory tract infection: Patient reports she had a recent URI and still has a lingering cough. Lung sounds are clear. Patient is provided with William Levy as she reports these worked for her. 3. Anxiety and depression: Patient should continue her home medications the same. Patient should follow up with her primary care and outpatient mental health professional. Neurology did recommend that patient's primary care/ outpatient mental health provider could consider Cymbalta as this could help with the patient's headaches. 4. Parkinson features: This was drug induced, as mentioned above. No medication is needed at this time. If the patient and her primary care deem necessary, she should be referred to a neurologist. 5. Gastroesophageal reflux disease: Patient should continue her home medications the same. 6. Hypothyroid: As mentioned above, patient's TSH was elevated at 30.73. I discussed this with the patient. She reports to this quality analyst/technical writer she recently had an adjustment in her Synthroid from 125 to 150 two weeks ago, but reported to other providers it was 4 weeks ago. I did not adjust her medications. I have encouraged patient to follow up with her primary care in 1 to 2 weeks and have this level redrawn as she may need further adjustment to her medication. 7. Education: Patient and family were educated on signs and symptoms of new or worsening condition and when to return to the emergency department. All stated understanding. 8. Followup: As mentioned above, patient should follow up with her primary care in 1 to 2 weeks. This is a summarized report of a complex medical history and hospital stay. For further details, please see the entire medical record. TIME SPENT: Approximately 35 minutes were spent on this discharge, greater than half that time was spent [id number] with the patient discussing discharge plan and instructions. This plan was discussed with my attending, Dr. Dhaval Coleman, who agrees with my plan. MARTA KAMARA, ZAHRAA [id number]/[facility] #: [id number] GUCCI
== END 2018-12-04 17:00 | disposition home or self-care (01) ==
LOC: ED 09:40 → MEDTELE 15:08
PROVIDERS: ADMIT Internal Medicine; ATTEND Hospitalist
DX: R42 Dizziness and giddiness (principal); F32.9 Major depressive disorder, single episode, unspecified; E03.9 Hypothyroidism, unspecified; K21.9 Gastro-esophageal reflux disease without esophagitis; R11.0 Nausea; I10 Essential (primary) hypertension; I20.9 Angina pectoris, unspecified; J02.9 Acute pharyngitis, unspecified; Z87.891 Personal history of nicotine dependence; R51 Headache; F41.9 Anxiety disorder, unspecified; J06.9 Acute upper respiratory infection, unspecified; G20 Parkinson's disease; R25.9 Unspecified abnormal involuntary movements; K27.9 Peptic ulcer, site unspecified, unspecified as acute or chronic, without hemorrhage or perforation; M48.00 Spinal stenosis, site unspecified
CPT/HCPCS: 36415; 70450; 70496; 70498; 70551; 71045; 80048; 80053; 80061; 81003; 81015; 83605; 83735; 84439; 84443; 84481; 84484; 85025; 85610; 85730; 87086; 93005; 93306; 94640; 96360; 96361; 96372; 99284; A9270-GY; G0378; J1650; Q9967

== ENCOUNTER 2019-01-07 10:08 | Emergency (ER) | payer MEDICARE, OTHER ==
--- OUTSIDE RECORDS SUMMARY | 2019-01-07 10:22 | XMS REPORT | Continuity of Care Document ---
:1945 External Reference #:[id number] Author Name Mirna Powell Care Team Providers Name Role Phone Yudelka Canas MD Primary Care Physician Unavailable Payers Date Identification Numbers Payment Provider Subscriber Policy Number: [id number] Medicare Nica Aparicio PayID: [id number] [address] [place] [address] Policy Number: [id number] [facility] Nica Aparicio Group Number: [id number] [address] PayID: [id number] [place] [address] Expires: 2018 Policy Number: [id number] [facility] Nica Aparicio PayID: [id number] [address] [address] [place]avitt [address] Advance Directives Description No Information Available Problems Date Description Provider Status Onset: 07/07/2017 Obstructive sleep apnea syndrome Ros Voss DNP, RN, Active ADMITTING REPRESENTATIVE-BC Onset: 07/07/2017 Body mass index 30+ - obesity Ros Voss DNP, RN, Active ADMITTING REPRESENTATIVE-BC Onset: 10/28/2017 Hypoxemia Ros Voss DNP, RN, Active ADMITTING REPRESENTATIVE-BC Onset: 11/03/2017 Abnormal involuntary movement Stevan Palm M.D. Active Onset: 11/03/2017 Chronic fatigue syndrome Stevan Palm M.D. Active Onset: 01/08/2018 Secondary parkinsonism Stevan Paml M.D. Active Onset: 03/19/2018 Drug-induced tardive dystonia Stevan Palm M.D. Active Onset: 04/17/2018 Edema Stevan Palm M.D. Active Onset: 05/11/2018 Malaise and fatigue Iam Lopez N.P. Active Onset: 05/12/2018 Hypothyroidism Regino Coleman MD Active Onset: 05/13/2018 Tachycardia Regino Coleman MD Active Onset: 05/13/2018 Dizziness and giddiness Regino Coleman MD Active Onset: 05/16/2018 Anxiety state Regino Coleman MD Active Onset: 05/16/2018 High enzyme level in serum Regino Coleman MD Active Onset: 06/02/2018 Orthostatic hypotension Stevan Palm M.D. 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 Hand Dominance Right-handed Tobacco Use Start: Unknown End: Former Cigarette Smoker 20 years Unknown 2 Packs Daily Cigarette Use Quit - Age 51 Smoking Status Reviewed: 01/01/19 Former Cigarette Smoker 20 years 2 Packs Daily ETOH Use Denies alcohol use Tobacco Use Start: Unknown End: Patient is a former quit in late Unknown smoker , smoked for 20+ yrs 2 ppd Recreational Drug Use Denies Drug Use Exercise Type/Frequency Does not exercise Allergies, Adverse Reactions, Alerts Description No Known Drug Allergies Medications Medication Date Status Form Strength Qnty SIG Indications Ordering Provider Ipratropium 02/02 Active Solution 0.5-2.5(3 270ml 1 unit J44.1 Bambi [place] )mg/3ML every 12 MD Phuc rol Sulfate hours as needed Budesonide 02/02 Active Suspension 0.25mg/2M 180un use one J44.1 Bambi L its vial in MD Phuc nebulizer twice daily pt uses as needed Oxygen 11/14 Active Misc 1unit 3 l nc at s bedtime dx MD Phuc r09.02 nocturnal hypoxemia Calcium 600+D Active Tablets 600-200mg 2 by mouth Unknown /0000 -Unit a day Probiotic Active Capsules 1 by mouth Unknown /0000 every day, patient states she is still taking. Levothyroxine Active Tablets 125mcg 1 by mouth Unknown Sodium /0000 every day Vitamin D Active Capsules 2000Unit 1 po [place]ari[place], (Ergocalcifero /0000 everyday Eveliajonas Hilton MD Flonase Active Suspension 50mcg/Act spray 1 Unknown Allergy Relief / spray in each nostril twice daily as needed Ondansetron Active Tablets 8mg dissolve Unknown /0000 Dispers one tablet orally every 8 hours as needed for nausea. Transderm-Scop Active Patches 1mg/3Days Use 1 Unknown (1.5 MG) /0000 72HR Patch Transderma lly Every 72 Hours as Needed For Nausea Mirtazapine Active Tablets 7.5mg 1 tab by Missael, /0000 mouth at [facility] Benzonatate Active Capsules 100mg Take 1 Cap Unknown /0000 By Mouth 3 Times A Day as Needed For Cough Diazepam Active Tablets 5mg 1 tab by Unknown /0000 mouth three times daily Propranolol Active Tablets 20mg Take 1 Unknown HCL /0000 Tablet By Mouth Every Day In The Morning Hydroxyzine Active Capsules 50mg Take 1 Unknown Pamoate /0000 Capsule By Mouth Every 6 Hours as Needed For Itching/An xiety Fluoxetine HCL Active Tablets 60mg 1 tab by Jayleen, /0000 mouth once Arlene Naheed, daily [employer] Meclizine HCL Active Tablets 25mg 1 tablet Unknown /0000 every 8 hours as needed for vertigo Sucralfate Active Tablets 1gm 1 tab by Unknown /0000 mouth four times daily Symbicort Active Aerosol 160-4.5mc 2 puff Unknown /0000 g/Act twice a day Topamax 11/05 Hx Tablets 50mg 30tab 1 by mouth R51 s every day Clint Lopez N.P. 12/13 Topamax 10/20 Hx Tablets 25mg 30tab 1 pill at R51 s night An Palm - 11/05 Clonazepam 07/30 Hx Tablets 0.5mg 1 by mouth three An Palm - times a 03/10 Lamictal 06/22 Hx Tablets 25mg 120ta 2 tabs by F33.1 bs mouth An Palm - twice a 12/13 day total of 100 MG daily Sinemet 05/01 Hx Tablets 25-100mg 90tab take 10/07. s pill three An Palm - times a 10/19 day 30 min /2018 prior to meals Gocovri 03/19 Hx Caps ER 137mg 60cap for first G201.04 24HR s week take An Palm - 1 at 04/17 bedtime Symbicort 02/04 Hx Aerosol 80-4.5mcg 6.900 1 puff Bambi /2017 /Act gm twice a MD Phuc - day 06/01 Prednisone 12/16 Hx Tablets 5mg 84tab Take 3 J20.9 s Tabs By MD Phuc - Mouth [...] /0000 Dispers as needed - for 11/02 headache max 2 days a week Armodafinil Hx Tablets 50mg take one Unknown /0000 tablet by - mouth 12/15 Sertraline HCL Hx Tablets 50mg 1 by mouth Unknown /0000 every day - for 5 days 01/07 Latuda Hx Tablets 40mg 1 by mouth Unknown /0000 every day - 10/28 Topiramate Hx Tablets 100mg 1 by mouth Unknown /0000 twice a - day 12/15 Zolpidem Hx Tablets ER 6.25mg 1 tablet Unknown Tartrate ER /0000 just - before bed 06/01 Clonazepam Hx Tablets 1mg 90tab 1 pill 3 oph s times a An Palm - day 07/30 Fibercon Hx Tablets 625mg 2 per day Unknown /0000 - 07/07 Famotidine Hx Tablets 20mg 2 tabs per Unknown /0000 day - 07/07 Linzess Hx Capsules 145mcg Georgetson, /0000 Clint Nicolas MD 10/28 Zantac Hx Tablets take 1 Unknown /0000 tablet - everyday 01/18 Butalbital/Fuad Hx Tablets 50-325-40 30tab take 1 Christopher taminophen/Caf /0000 mg s tablet by An Palm - mouth 12/13 eight hours as needed for headache Nuvigil Hx Tablets 50mg take one Unknown /0000 capsule/ta - blet daily 12/16 by mouth as needed for hypersomni a Advair Diskus Hx Aerosol 500-50mcg prn Missael, /0000 /Dose Clint Jha MD 01/07 Phenelzine Hx Tablets 15mg three Unknown Sulfate /0000 times a - day 07/29 Fluticasone Hx Suspension 50mcg/Act Galyanova, Propionate /0000 Clint Jha MD 02/01 Symbicort Hx Aerosol 160-4.5mc 2 puffs Unknown /0000 g/Act daily - 01/18 Hyoscyamine Hx Tablets Sub 0.125mg as needed Everardotson, Sulfate /0000 Clint Nicolas MD 03/18 Ranitidine HCL Hx Tablets 300mg Take 1 Unknown /0000 Tablet By - Mouth 01/18 Twice A Day Bentyl Hx Capsules 20mg 1 by mouth Unknown /0000 four times - a day prn 06/01 discontinu ed 05/22/18 Furosemide Hx Tablets 20mg half Galyanova, /0000 tablet Yudelka - every day- 04/30 started 03/17/18 Vitamin D Hx Capsules 67281 1 by mouth Unknown /0000 every two - weeks 03/18 Zofran Hx Tablets 8mg take 1 by Unknown /0000 mouth - every 8 06/01 hours needed for nausea Dicyclomine 00 Hx Tablets 20mg Georgetson, HCL /0000 Clint Nicolas MD 06/01 Topiramate Hx Tablets 50mg As Adrianne, 0000 directed MD Harley - 06/01 Acetaminophen Hx Tablets ER 650mg 1 tab by Unknown ER /0000 mouth q4 - hours as 12/[address] 20mg 1 by mouth Unknown /0000 Part every day - 12/13 Inderal LA Hx Caps ER 60mg 1 by mouth Unknown /0000 24HR every day - 12/13 Amoxicillin/Cl Hx Tablets 500-125mg Galyanova, avulanate /0000 Marla Jha MD 12/31 Immunizations Description No Information Available Vital Signs Date Vital Result Comment 01/01/2019 11:15am Height 65 inches 5'5" Weight 213.00 lb Heart Rate 64 /min BP Systolic Sitting 120 mmHg Rue large cuff BP Diastolic Sitting 68 mmHg Rue large cuff Respiratory Rate 16 /min O2 % BldC Oximetry 95 % BMI (Body Mass Index) 35.4 kg/m2 12/14/2018 2:06pm Height 65 inches 5'5" Weight 206.00 lb Heart Rate 66 /min BP Systolic Sitting 122 mmHg BP Diastolic Sitting 78 mmHg Respiratory Rate 14 /min BMI (Body Mass Index) 34.3 kg/m2 10/20/2018 8:57am Height 65 inches 5'5" Weight 209.00 lb Heart Rate 76 /min BP Systolic 130 mmHg BP Diastolic 90 mmHg BMI (Body Mass Index) 34.8 kg/m2 07/30/2018 1:01pm Height 65 inches 5'5" Weight 220.00 lb Heart Rate 76 /min BP Systolic Sitting 132 mmHg BP Diastolic Sitting 88 mmHg Respiratory Rate 18 /min BMI (Body Mass Index) 36.6 kg/m2 06/22/2018 2:03pm Height 65 inches 5'5" Weight 226.00 lb Heart Rate 88 /min BP Systolic 124 mmHg BP Diastolic 94 mmHg Respiratory Rate 20 /min BMI (Body Mass Index) 37.6 kg/m2 06/11/2018 3:26pm Height 65 inches 5'5" Weight 226.12 lb Heart Rate 86 /min BP Systolic Sitting 86 mmHg Lue large cuff BP Diastolic Sitting 64 mmHg Lue large cuff Respiratory Rate 14 /min O2 % BldC Oximetry 92 % On Ra BMI (Body Mass Index) 37.6 kg/m2 06/02/2018 12:12pm Height 65 inches 5'5" Weight 220.00 lb Heart Rate 84 /min BP Systolic 120 mmHg BP Diastolic 88 mmHg Respiratory Rate 20 /min BMI (Body Mass Index) 36.6 kg/m2 05/01/2018 1:31pm Height 65 inches 5'5" Weight 230.00 lb Heart Rate 84 /min BP Systolic Sitting 138 mmHg BP Diastolic Sitting 76 mmHg Respiratory Rate 18 /min BMI (Body Mass Index) 38.3 kg/m2 04/17/2018 2:18pm Height 65 inches 5'5" Weight 229.56 lb Heart Rate 66 /min BP Systolic 112 mmHg BP Diastolic 68 mmHg BMI (Body Mass Index) 38.2 kg/m2 03/19/2018 1:35pm Height 65 inches 5'5" Weight 210.00 lb Heart Rate 76 /min BP Systolic Sitting 118 mmHg BP Diastolic Sitting 80 mmHg Respiratory Rate 16 /min BMI (Body Mass Index) 34.9 kg/m2 02/02/2018 10:28am Height 65 inches 5'5" Weight 215.50 lb Heart Rate 94 /min BP Systolic Sitting 118 mmHg Lue large cuff BP Diastolic Sitting 80 mmHg Lue large cuff Respiratory Rate 12 /min O2 % BldC Oximetry 92 % On Ra BMI (Body Mass Index) 35.9 kg/m2 01/19/2018 11:11am Height 65 inches 5'5" Weight 214.00 lb Heart Rate 76 /min BP Systolic Sitting 118 mmHg BP Diastolic Sitting 80 mmHg Respiratory Rate 14 /min O2 % BldC Oximetry 96 % BMI (Body Mass Index) 35.6 kg/m2 01/08/2018 2:22pm Height 65 inches 5'5" Weight 205.00 lb Heart Rate 82 /min BP Systolic Sitting 124 mmHg BP Diastolic Sitting 66 mmHg Respiratory Rate 16 /min BMI (Body Mass Index) 34.1 kg/m2 12/16/2017 10:32am Height 65 inches 5'5" Weight 207.00 lb Heart Rate 84 /min BP Systolic Sitting 110 mmHg BP Diastolic Sitting 70 mmHg Respiratory Rate 14 /min O2 % BldC Oximetry 94 % BMI (Body Mass Index) 34.4 kg/m2 11/03/2017 10:48am Height 65 inches 5'5" Weight 215.00 lb Heart Rate 84 /min BP Systolic 106 mmHg BP Diastolic 74 mmHg Respiratory Rate 14 /min BMI (Body Mass Index) 35.8 kg/m2 10/28/2017 2:10pm Height 65 inches 5'5" Weight 219.00 lb no shoes Heart Rate 90 /min BP Systolic Sitting 110 mmHg Rue large cuff BP Diastolic Sitting 80 mmHg Rue large cuff Respiratory Rate 16 /min O2 % BldC Oximetry 93 % On Ra BMI (Body Mass Index) 36.4 kg/m2 07/07/2017 10:55am Height 65 inches 5'5" Weight 213.25 lb With shoes Heart Rate 78 /min BP Systolic Sitting 126 mmHg Lue reg cuff BP Diastolic Sitting 64 mmHg Lue reg cuff Respiratory Rate 20 /min O2 % BldC Oximetry 95 % On Ra BMI (Body Mass Index) 35.5 kg/m2 05/20/2017 11:42am Height 65 inches 5'5" Weight 206.00 lb Heart Rate 72 /min BP Systolic Sitting 110 mmHg BP Diastolic Sitting 78 mmHg Respiratory Rate 14 /min O2 % BldC Oximetry 96 % BMI (Body Mass Index) 34.3 kg/m2 Neck Circumference in inches 16 Results Test Date Facility Test Result H/L Range Note Basic Metabolic 11/26/2017 [facility] Sodium 140 mmol/L N 133- [address] [place] [address] [phone] Potassium 3.9 mmol/L N 3.5-5.0 Chloride 104 mmol/L N 101-111 Co2 Carbon Dioxide 29 mmol/L N 22-32 Anion Gap 7 mmol/L N 2-11 Glucose 91 mg/dL N 70-100 Blood Urea Nitrogen 13 mg/dL N 6-24 Creatinine 1.04 mg/dL High 0.51-0.95 BUN/Creatinine Ratio 12.5 N 8-20 Calcium 9.8 mg/dL N 8.6-10.3 Egfr Non- 52.2 >60 Egfr 67.2 >60 1 Laboratory test 11/03/2017 [facility] Ceruloplasmin 31.6 mg/dL [address] [place] [address] [phone] Copper, Serum 1.32 g/mL 0.75-1.45 3 Erythrocyte Sed Rate 15 mm/Hr N 0-40 Vitamin B12 And 11/03/2017 [facility] Vitamin B12 291 pg/mL N 180-914 4 Folate Serum [address] [place] [address] [phone] Folic Acid (Folate) 5.48 ng/mL >3.99 Laboratory test 11/03/2017 [facility] TSH (Thyroid 1.40 mcIU/mL N 0.34-5.[address] [place]) [place] [address] [phone] Free T4 (Free Thyroxine) 0.95 ng/dL N 0.61-1.12 1 Because ethnic data is not always [...] 5 Kidney failure <15 (or dialysis) 2 REFERENCE VALUE 20.0 - 51.0 Test Performed by: [facility] - [facility] [address] [place] [address] 3 ADDITIONAL INFORMATION This test was developed and its performance characteristics determined by [facility] in a manner consistent with CLIA requirements. This test has not been cleared or approved by the U.S. Food and Drug Administration. Test Performed by: [facility] [employer] - [facility] [address] [place] [address] 4 Normal Range 180 to 914 Indeterminate Range 145 to 180 Deficient Range <145 Procedures Date Code Description Status 12/03/2018 80798 ECHO Transthorasic Realtime 2D W Doppler & Color Flow Hosp Completed 05/12/2018 38323 ECHO Transthorasic Realtime 2D W Doppler & Color Flow Hosp Completed 02/08/2018 73238 Polysomnography Sleep Staging 4+ Parameters W/Cpap Completed 11/27/2017 19099 Sleep Study Unattended,HRT Rate,Oxygen Sat,Resp Completed Effort/Airflow 06/11/2017 40159 Polysomnography Sleep Staging 4+ Parameters Completed Encounters Type Date Location Provider Dx Diagnosis Office Visit 01/01/2019 Pul[facility]ology And Shelli Hogan45.909 Unspecified asthma, 11:30a Sleep Services Of uncomplicated Package Wrapper G47.33 Obstructive sleep apnea (adult) (pediatric) R09.02 Hypoxemia Office Visit 12/14/2018 Pulmonology And Bambi Marques45.909 Unspecified asthma , 1:45p Sleep Services Of MD Phuc uncomplicated Package Wrapper G47.33 Obstructive sleep apnea (adult) (pediatric) R09.02 Hypoxemia Office Visit 12/04/2018 9:42a [facility] R42 Dizziness and Assoc,pc Benjamin, [employer] giddiness Hospitalists F41.8 Other specified anxiety disorders J06.9 Acute upper respiratory infection, unspecified E03.9 Hypothyroidism, unspecified Office Visit 12/02/2018 9:41a [facility] R42 Dizziness and Assoc,asim Mantilla [employer] giddiness Hospitalists F41.8 Other specified anxiety disorders K21.9 Gastro-esophageal reflux disease without esophagitis Office Visit 10/20/2018 Neurohospitalist Stevan F33.1 Major 9:00a Marvin Palm M.D. 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 subacute Services Of [facility] dyskinesia F41.9 Anxiety disorder, unspecified F33.1 Major depressive disorder, recurrent, moderate Office Visit 06/11/2018 Pulmonology And Bambi J45.909 Unspecified asthma , 3:30p Sleep Services Of MD Phuc uncomplicated Package Wrapper G47.33 Obstructive sleep apnea (adult) (pediatric) E66.09 Other obesity due to excess calories Office Visit 06/02/2018 [place] Stevan Palm, G24.01 Drug induced 12:00p Neurologic M.D. 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 E03.9 Hypothyroidism, unspecified Office Visit 05/16/2018 [facility] Regino Puentes G21.19 Other drug 11:02a asim Fuentes MD induced secondary Hospitalists parkinsonism R00.0 Tachycardia, unspecified F41.9 Anxiety disorder, unspecified R53.1 Weakness R74.8 Abnormal levels of other serum enzymes [facility] Other drug 11:01a asim Fuentes NP induced secondary Hospitalists parkinsonism R42 Dizziness and giddiness R00.0 Tachycardia, unspecified R53.1 Weakness Office Visit 05/14/2018 [facility] R00.0 Tachycardia, 11:01a asim Fuentes NP unspecified Hospitalists 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 R42 Dizziness and giddiness E03.9 Hypothyroidism, unspecified R53.1 Weakness Office Visit 05/13/2018 Neurohospitalist Junaid G21.19 Other drug 7:00a Marvin Evans MD induced secondary parkinsonism R00.0 Tachycardia, unspecified Office Visit 05/13/2018 [facility] Regino Puentes G21.19 Other drug 11:00a asim Fuentes MD induced secondary Hospitalists parkinsonism R53.1 Weakness R00.0 Tachycardia, unspecified R42 Dizziness and giddiness Office Visit 05/12/2018 7:00a [facility] Junaid Evans, R53.83 Other fatigue H02.401 Unspecified ptosis of right eyelid R26.81 Unsteadiness on feet R29.2 Abnormal reflex 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 subacute Services Of Package Wrapper dyskinesia G47.33 Obstructive sleep apnea (adult) (pediatric) Office Visit 04/17/2018 [place] Stevan Palm G24.01 Drug induced 2:15p Neurologic M.D. subacute Services Of Package Wrapper dyskinesia G47.33 Obstructive sleep apnea (adult) (pediatric) R60.9 Edema, unspecified H53.8 Other visual disturbances Office Visit 03/19/2018 [place] Stevan Palm, G24.01 Drug induced 1:45p Neurologic M.D. 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 Office Visit 02/02/2018 10:45a Pulmonology And Bambi J44.1 Chronic Sleep Services Of MD Phuc obstructive Package Wrapper pulmonary disease w (acute) exacerbation J45.909 Unspecified asthma, uncomplicated G47.33 Obstructive sleep apnea (adult) (pediatric) Office Visit 01/19/2018 Pulmonology And Bambi J45.909 Unspecified asthma , 11:30a Sleep Services Of MD Phuc uncomplicated Package Wrapper G47.33 Obstructive sleep apnea (adult) (pediatric) E66.09 Other obesity due to excess calories Z68.35 Body mass index (BMI) 35.0-35.9, adult Office Visit 01/08/2018 [place] Jacklyn Palm, G21.2 Secondary 2:15p Services Of Astrid M.D. parkinsonism due to other external agents Office Visit 12/16/2017 Pulmonology And Bambi Friend, R06.2 Wheezing 11:00a Sleep Services Of MD Resendiz J20.9 Acute bronchitis, unspecified J45.909 Unspecified asthma, uncomplicated R09.02 Hypoxemia Office Visit 11/03/2017 [place] Palm, R25.1 Tremor, 10:30a Neurologic M.D. unspecified [facility] R53.82 Chronic fatigue, unspecified Office Visit 10/28/2017 Pulmonology And Ros G47.33 Obstructive sleep 2:00p Sleep Services Of CHASE Voss RN, apnea (adult) [facility] (pediatric) R09.02 Hypoxemia E66.09 Other obesity due to excess calories Z68.36 Body mass index (BMI) 36.0-36.9, adult Office Visit 07/07/2017 Pulmonology And Ros G47.33 Obstructive sleep 10:45a Sleep Services Of CHASE Voss RN, apnea (adult) [facility] (pediatric) R09.02 Hypoxemia Office Visit 05/20/2017 11:30a Pulmonology And Bambi G47.33 Obstructive sleep Sleep Services Of MD Phuc apnea (adult) [facility] (pediatric) E66.09 Other obesity due to excess calories Z68.34 Body mass index (BMI) 34.0-34.9, adult Plan of Treatment Future Appointment(s):03/04/2019 10:45 am - Bambi Friend MD at Pul[facility]ology And Sleep [facility]01/01/2019 - Bambi Friend MDJ45.909 Unspecified asthma, uncomplicatedFollow up:2 months , o/n oximetry zzmlqQ43.33 Obstructive sleep apnea (adult) (pediatric)R09.02 Hypoxemia
--- OUTSIDE RECORDS SUMMARY | 2019-01-07 10:22 | XMS REPORT | Continuity of Care Document ---
:1945 External Reference #:[id number] Author Name Jessica Ballesteros Care Team Providers Name Role Phone Yudelka Canas MD Primary Care Physician Unavailable Payers Date Identification Numbers Payment Provider Subscriber Policy Number: [id number] Medicare Nica Aparicio PayID: [id number] [address] [place] [address] Policy Number: [id number] [facility] Nica Aparicio Group Number: [id number] [address] PayID: [id number] [place] [address] Expires: 2018 Policy Number: [id number] [facility] Nica Aparicio PayID: [id number] [address] [address] [place] Leavitt [address] Advance Directives Description No Information Available Problems Date Description Provider Status Onset: 07/07/2017 Obstructive sleep apnea syndrome Ros Voss DNP, RN, Active 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 Active Onset: 11/03/2017 Chronic fatigue syndrome Stevan Palm M.D. Active Onset: 01/08/2018 Secondary parkinsonism Stevan Palm M.D. Active Onset: 03/19/2018 Drug-induced [...] Lives With Occupation Retired Worked at the [employer]. Hand Dominance Right-handed Tobacco Use Start: Unknown End: Former Cigarette Smoker 20 years Unknown 2 Packs Daily Cigarette Use Quit - Age 51 Smoking Status Reviewed: 12/14/18 Former Cigarette Smoker 20 years 2 Packs [...] Solution 0.5-2.5(3 270ml 1 unit J44.1 Bambi Hutto/[place] )mg/3ML every 12 MD Phuc rol Sulfate hours as needed Budesonide 02/02 Active Suspension 0.25mg/2M 180un use one J44.1 Bambi /2017 L its vial in MD Phuc nebulizer twice daily pt uses as needed Oxygen 11/14 Active Misc 1unit 2 l nc at s bedtime Shanika, DNP, Dx R09.02 RN, RAILROAD REPAIRER-BC nocturnal hypoxemia Calcium 600+D Active Tablets 600-200mg 2 by mouth Unknown /0000 -Unit a day Probiotic Active Capsules 1 by mouth Unknown /0000 every day, patient states she is still taking. Levothyroxine Active Tablets 125mcg 1 by mouth Unknown Sodium /0000 every day Vitamin D Active Capsules 2000Unit 1 po Cannariato, (Ergocalcifero / everyday Evelia Hilton MD Flonase Active Suspension 50mcg/Act spray 1 Unknown Allergy Relief / spray in each nostril twice daily as needed Ondansetron Active Tablets 8mg dissolve Unknown / Dispers one tablet orally every 8 hours as needed for nausea. Transderm-Scop Active Patches 1mg/3Days Use 1 Unknown (1.5 MG) /0000 72HR Patch Transderma lly Every 72 Hours as Needed For Nausea Mirtazapine Active Tablets 7.5mg 1 tab by Galyanova, /0000 mouth at Yudelka hs Amoxicillin/Cl Active Tablets 500-125mg Galyantono, avulanate /0000 Yudelka, Potassium Benzonatate Active Capsules 100mg Take 1 Cap Unknown / By Mouth 3 Times A Day as [...] tab by Jayleen, /0000 mouth once Arlene Farfan, daily COLLISION REPAIR TECHNICIAN Meclizine HCL Active Tablets 25mg 1 tablet Unknown /0000 every 8 hours as needed for vertigo Sucralfate Active Tablets 1gm 1 tab by Unknown /0000 mouth four times daily Symbicort Active Aerosol 160-4.5mc 2 puff Unknown /0000 g/Act twice a day Topamax 11/05 Hx Tablets 50mg 30tab 1 by mouth R51 s every day Clint Lopez N.Tavo 12/13 Topamax 10/20 Hx Tablets 25mg 30tab 1 pill at R51 [place] /2018 s paulo Palm M.D. - 11/05 Clonazepam 07/30 Hx Tablets 0.5mg 1 by mouth mary anne Palm M.D. - times a /2018 Lamictal 06/22 Hx Tablets 25mg 120ta 2 tabs by F33.1 bs mouth An Palm - twice a 12/13 day of 100 MG daily Sinemet 05/01 Hx Tablets 25-100mg 90tab take 1 G2. s pill mar yanne Palm M.D. - times a 10/19 day 30 min /2018 prior to meals Gocovri 03/19 Hx Caps ER 137mg 60cap for first G2. 24HR s week take An Palm - [...] Unknown /0000 tablet by - mouth 12/15 every day Sertraline HCL Hx Tablets 50mg 1 by [...] Hx Tablets 1mg 90tab 1 pill 3 Christopher /0000 s times a An Palm - day 07/30 Fibercon Hx Tablets 625mg 2 per day Unknown /0000 - 07/07 Famotidine 00 Hx Tablets 20mg 2 tabs per Unknown /0000 day - 07/07 Linzess Hx Capsules 145mcg Georgetskyara, /0000 Clint Nicolas MD 10/28 Zantac Hx Tablets take 1 Unknown /0000 tablet - everyday 01/18 Butalbital/Fuad Hx Tablets 50-325-40 30tab take 1 Christopher taminophen/Caf /0000 mg s tablet by An Palm feine - mouth 12/13 eight hours as needed for headache Nuvigil Hx Tablets 50mg take one Unknown /0000 capsule/ta - blet daily 12/16 by mouth as needed for hypersomni a Advair Diskus Hx Aerosol 500-50mcg prn Cinthiaova, /0000 /Dose Clint Jha MD 01/07 Phenelzine Hx Tablets 15mg three Unknown Sulfate /0000 times a - day 07/29 Fluticasone Hx Suspension 50mcg/Act Galyanova, Propionate /0000 Clint Jha MD 02/01 Symbicort Hx Aerosol 160-4.5mc 2 puffs Unknown /0000 g/Act daily - 01/18 Hyoscyamine Hx Tablets Sub 0.125mg as needed Desiree, Sulfate /0000 Clint Nicolas MD 03/18 Ranitidine HCL Hx Tablets 300mg Take 1 Unknown /0000 Tablet By - Mouth 01/18 Twice Day Bentyl Hx Capsules 20mg 1 by mouth Unknown /0000 four times - a day prn 06/01 discontinu ed 05/22/18 Furosemide 0000 Hx Tablets 20mg half Galyanova, /0000 tablet Yudelka - every day- 04/30 started 03/17/18 Vitamin D Hx Capsules 50255 1 by mouth Unknown /0000 every two - weeks 03/18 Zofran Hx Tablets 8mg take 1 by Unknown /0000 mouth - every 8 06/01 hours needed for nausea Dicyclomine Hx Tablets 20mg Desiree, HCL /0000 Clint Nicolas MD 06/01 Topiramate Hx Tablets 50mg As Adrianne, /0000 directed MD Harley - 06/01 Acetaminophen Hx Tablets ER 650mg 1 tab by Unknown ER /0000 mouth q4 - hours as 12/[address] 20mg 1 by mouth Unknown /0000 Part every day - 12/13 Inderal LA Hx Caps ER 60mg 1 by mouth Unknown /0000 24HR every day - 12/13 Immunizations Description No Information Available Vital Signs Date Vital Result Comment 12/14/2018 2:06pm Height 65 inches 5'5" Weight [...] Result H/L Range Note Basic Metabolic 11/26/2017 [facility] Sodium 140 mmol/L N 133- 145 Panel [address] [place] [address] [phone] Potassium 3.9 mmol/L N 3.5-5.0 Chloride 104 mmol/L N 101-111 Co2 Carbon Dioxide 29 mmol/L N 22-32 Anion Gap 7 mmol/L N 2-11 Glucose 91 mg/dL N 70-100 Blood Urea Nitrogen 13 mg/dL N 6-24 Creatinine 1.04 mg/dL High 0.51-0.95 BUN/Creatinine Ratio 12.5 N 8-20 Calcium 9.8 mg/dL N 8.6-10.3 Egfr Non- 52.2 >60 Egfr 67.2 >60 1 Laboratory test 11/03/2017 [facility] Ceruloplasmin 31.6 mg/dL [address] [place] [address] [phone] Copper, Serum 1.32 g/mL 0.75-1.45 3 Erythrocyte Sed Rate 15 mm/Hr N 0-40 Vitamin B12 And 11/03/2017 [facility] Vitamin B12 291 pg/mL N 180-914 4 Folate Serum [address] [place] [address] [phone] Folic Acid (Folate) 5.48 ng/mL >3.99 Laboratory test 11/03/2017 [facility] TSH (Thyroid 1.40 mcIU/mL N 0.34-5.[address] Stim [place]orm) [place] [address] [phone] Free T4 (Free Thyroxine) 0.95 ng/dL N [...] VALUE 20.0 - 51.0 Test Performed by: [facility] - [address] [address] 3 ADDITIONAL INFORMATION This test was developed and its performance characteristics determined by [facility] in a manner consistent with CLIA requirements. This test has not been cleared or approved by the U.S. Food and Drug Administration. Test Performed by: [facility] - [facility] [address] [place] [address] 4 Normal Range 180 to 914 Indeterminate Range 145 to 180 Deficient Range <145 Procedures Date Code Description Status 12/03/2018 33420 ECHO Transthorasic Realtime 2D W Doppler & Color Flow Hosp Completed 05/12/2018 69755 ECHO Transthorasic Realtime 2D W Doppler & Color Flow Hosp Completed 02/08/2018 19059 Polysomnography Sleep Staging 4+ Parameters W/Cpap Completed 11/27/2017 81499 Sleep Study Unattended,HRT Rate,Oxygen Sat,Resp Completed Effort/Airflow 06/11/2017 60573 Polysomnography Sleep Staging 4+ Parameters Completed Encounters Type Date Location Provider Dx Diagnosis Office Visit 12/02/2018 [facility] Tiana Mantilla, R42 Dizziness and 9:41a Assoc, Hospitalists COLLISION REPAIR TECHNICIAN giddiness F41.8 Other specified anxiety disorders K21.9 Gastro-esophageal reflux disease without esophagitis Office Visit 10/20/2018 Neurohospitalist Stevan F33.1 Major 9:00a Clinic An Palm depressive disorder, recurrent, moderate 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 subacute [facility] [place] dyskinesia F41.9 Anxiety disorder, unspecified F33.1 Major depressive disorder, recurrent, moderate Office Visit 06/11/2018 [facility] Bambi J45.909 Unspecified asthma , 3:30p Sleep Services Of MD Phuc uncomplicated [place] G47.33 Obstructive sleep apnea (adult) (pediatric) E66.09 Other obesity due to excess calories Office Visit 06/02/2018 Constable Stevan Palm, G24.01 Drug induced 12:00p Neurologic M.D. 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 E03.9 Hypothyroidism, unspecified Office Visit 05/16/2018 Constable Ashok Puentes G21.19 Other drug 11:02a Assoc,pc MD Jared induced secondary Hospitalists parkinsonism R00.0 Tachycardia, unspecified F41.9 Anxiety disorder, unspecified R53.1 Weakness R74.8 Abnormal levels of other serum enzymes Office Visit 05/15/2018 [facility] G21.19 Other drug 11:01a asim Fuentes NP induced secondary Hospitalists parkinsonism R42 Dizziness and giddiness R00.0 Tachycardia, unspecified R53.1 Weakness Office Visit 05/14/2018 [facility] R00.0 Tachycardia, 11:01a Assasim smith NP unspecified Hospitalists 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 R42 Dizziness and giddiness E03.9 Hypothyroidism, unspecified R53.1 Weakness Office Visit 05/13/2018 [facility] Regino Puentes G21.19 Other drug 11:00a Assasim smith MD induced secondary Hospitalists parkinsonism R53.1 Weakness R00.0 Tachycardia, unspecified R42 Dizziness and giddiness Office Visit 05/13/2018 Neurohospitalist Junaid G21.19 Other drug 7:00a Clinic MD Cristina induced secondary parkinsonism R00.0 Tachycardia, unspecified Office Visit 05/12/2018 7:00a Neurohospitalist Clinic Junaid Evans, R53.83 Other fatigue H02.401 Unspecified ptosis of right eyelid R26.81 Unsteadiness on feet R29.2 Abnormal reflex 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 subacute [facility] [place] dyskinesia G47.33 Obstructive sleep apnea (adult) (pediatric) Office Visit 04/17/2018 Constable Stevan Palm G24.01 Drug induced 2:15p Neurologic M.D. subacute [facility] [place] dyskinesia G47.33 Obstructive sleep apnea (adult) (pediatric) R60.9 Edema, unspecified H53.8 Other visual disturbances Office Visit 03/19/2018 Constable Stevan Palm G24.01 Drug induced 1:45p Neurologic M.D. 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 Office Visit 02/02/2018 10:45a Pul[facility]ology And Bambi J44.1 Chronic Sleep [facility] obstructive [place] pulmonary disease w (acute) exacerbation J45.909 Unspecified asthma, uncomplicated G47.33 Obstructive sleep apnea (adult) (pediatric) Office Visit 01/19/2018 [facility] Bambi J45.909 Unspecified asthma , 11:30a [facility] uncomplicated [place] G47.33 Obstructive sleep apnea (adult) (pediatric) E66.09 Other obesity due to excess calories Z68.35 Body mass index (BMI) 35.0-35.9, adult Office Visit 01/08/2018 Constable Neurologic Stevan Palm, G21.2 Secondary 2:15p Services Of Astrid M.D. parkinsonism due to other external agents Office Visit 12/16/2017 [facility] Bambi Friend, R06.2 Wheezing 11:00a Sleep [facility] MD Resendiz J20.9 Acute bronchitis, unspecified J45.909 Unspecified asthma, uncomplicated R09.02 Hypoxemia Office Visit 11/03/2017 Freda Palm, R25.1 Tremor, 10:30a Neurologic M.DDariela unspecified [facility] R53.82 Chronic fatigue, unspecified Office Visit 10/28/2017 Pulmonology And Ros G47.33 Obstructive sleep 2:00p Sleep Services Of CHASE Voss RN, apnea (adult) [facility] (pediatric) R09.02 Hypoxemia E66.09 Other obesity due to excess calories Z68.36 Body mass index (BMI) 36.0-36.9, adult Office Visit 07/07/2017 Pulmonology And oRs G47.33 Obstructive sleep 10:45a Sleep Services Of CHASE Voss RN, apnea (adult) [facility] RAILROAD REPAIRER-BC (pediatric) R09.02 Hypoxemia Office Visit 05/20/2017 11:30a Pulmonology And Bambi G47.33 Obstructive sleep Sleep [facility] MD Phuc apnea (adult) [facility] (pediatric) E66.09 Other obesity due to excess calories Z68.34 Body mass index (BMI) 34.0-34.9, adult Plan of Treatment Future Appointment(s):01/01/2019 11:30 am - Bambi Friend MD at Pul[facility]ology [facility]12/14/2018 - Bambi Friend MDJ45.909 Unspecified asthma, uncomplicatedFollow up:2 hbtchS61.33 Obstructive sleep apnea (adult) ( pediatric)New Orders:Sleep-Homecare, Ordered: 12/14/18R09.02 Hypoxemia
[2019-01-07] MEDS ORDERED: NS 0.9% 1000 ML** 1,000 ML IV ONE (10:26)
[2019-01-07] MEDS ORDERED: Morphine 10 MG/ML VIAL (1 ml) IV ONE (10:26)
[2019-01-07] MEDS ORDERED: Ondansetron INJ* 2 MG/ML VIAL IV ONE (10:26)
--- NOTE | 2019-01-07 10:33 | ED ---
GI/ HPI - HPI Summary HPI Summary: A 73 y/o female presents to [facility] with a chief complaint of abdominal pain for the past two days. 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 At triage she rated her pain as a 8/10 in severity. She denies any recent travelling, sickness at home, change in diet or abx use. She denies an abdominal SHx. She has a Hx of diverticulitis and colitis , and reports that she currently has similar symptoms. - History of Current Complaint Chief Complaint: EDAbdPain Time Seen by Provider: 01/07/19 10:20 Stated Complaint: ADB PAIN PER PT Hx Obtained From: Patient Onset/Duration: Started Days Ago, Still Present Timing: Constant, Lasting Days Severity: Severe Current Severity: Severe Pain Intensity: 8 - out of 10 Location of Pain: Diffuse Pain Characteristics: Unable to describe Associated Signs and Symptoms: Positive: Nausea, Vomiting, Diarrhea. Negative: Fever Aggravating Factor(s): Nothing Alleviating Factor(s): Nothing - Additional Pertinent History Primary Care Physician: SHEELA - Allergy/Home Medications Allergies/Adverse Reactions: Allergies Allergy/AdvReac Type Severity Reaction Status Date / Time nitroglycerin AdvReac Intermediate Headache Verified 01/07/19 10:12 PMH/Surg Hx/FS Hx/Imm Hx Endocrine/Hematology History: Reports: Hx Thyroid Disease Denies: Hx Diabetes Cardiovascular History: Reports: Hx Angina, Hx Hypertension Denies: Hx Congestive Heart Failure, Hx Coronary Artery Disease, Hx Hypercholesterolemia, Hx Myocardial Infarction, Hx Pacemaker/ICD, Hx Valvular Heart Disease Respiratory History: Reports: Other Respiratory Problems/Disorders Denies: Hx Asthma, Hx Chronic Obstructive Pulmonary Disease (COPD) GI History: Reports: Hx Gall Bladder Disease, Hx Gastroesophageal Reflux Disease , Hx Ulcer, Other GI Disorders - GERD History: Denies: Hx Renal Disease, Other Problems/Disorders Musculoskeletal History: Reports: Hx Back Problems - stenosis, Other Musculoskeletal History - BILAT ROTATOR CUFF REPAIR Sensory History: Reports: Hx Contacts or Glasses Denies: Hx Cataracts, Hx Hearing Aid Opthamlomology History: Reports: Hx Contacts or Glasses Denies: Hx Cataracts Neurological History: Comment Only: Other Neuro Impairments/Disorders - medication related parkinsons Psychiatric History: Reports: Hx Anxiety, Hx Depression Denies: Hx Panic Disorder, Hx of Violent Episodes Against Others - Surgical History Surgery Procedure, Year, and Place: galbladder 2015. breast reduction. 2017 ( EARLY AUG) LUMBAR - L4-5 - NO HARDWARE PER PT Infectious Disease History: No Infectious Disease History: Reports: Hx Clostridium Difficile Denies: Hx Hepatitis, Hx Human Immunodeficiency Virus (HIV), Hx of Known/ Suspected MRSA, Hx Shingles, Hx Tuberculosis, Traveled Outside the [place] in Last 30 Days - Family History Known Family History: Negative: Blood Disorder - Social History Alcohol Use: None Substance Use Type: Reports: None Smoking Status (MU): Former Smoker Review of Systems Negative: Fever Positive: Abdominal Pain, Vomiting, Diarrhea, Nausea, Other - negative: blood in stool All Other Systems Reviewed And Are Negative: Yes Physical Exam - Summary Physical Exam Summary: VITAL SIGNS: Reviewed. GENERAL: Patient is a elderly female who is in distress secondary to pain. Patient is not in any acute respiratory distress. HEAD AND FACE: Normocephalic and atraumatic. EYES: PERRLA, EOMI x 2, No injected conjunctiva. EARS: Hearing grossly intact. Ear canals and tympanic membranes are WNL. MOUTH: Oropharynx within normal limits. NECK: Supple, trachea is midline, no adenopathy, no JVD. CHEST: Symmetric, no tenderness at palpation LUNGS: Clear to auscultation bilaterally. No wheezing or crackles. CVS: RRR, S1 and S2 present, no murmurs or gallops appreciated. ABDOMEN: Tender upper abdomen and LLQ. No signs of distention. Positive bowel sounds. No rebound no guarding, and no masses palpated. No abdominal bruit or pulsations. EXTREMITIES: FROM in all major joints, no edema, no cyanosis or clubbing. NEURO: Alert and oriented x 3. No acute neurological deficits. Speech is normal. SKIN: Dry and warm Triage Information Reviewed: Yes Vital Signs On Initial Exam: Initial Vitals Temp Pulse Resp BP Pulse Ox 98.8 F 80 18 122/77 91 01/07/19 10:10 01/07/19 10:10 01/07/19 10:10 01/07/19 10:10 01/07/19 10:10 Vital Signs Reviewed: Yes Diagnostics - Vital Signs Vital Signs Temp Pulse Resp BP Pulse Ox 01/07/19 10:10 98.8 F 80 18 122/77 91 - Laboratory Result Diagrams: 01/07/19 10:46 01/07/19 10:46 Lab Statement: Any lab studies that have been ordered have been reviewed, and results considered in the medical decision making process. - CT abdomen/pelvis CT Interpretation Completed By: Radiologist Summary of CT Findings: No abnormal masses or fluid collections are noted. Normal appendix. No. evidence of obstructive uropathy is noted. Diverticulosis sigmoid colon. No definite diverticulitis is noted. ED physician has reviewed this imaging report. - EKG 10:37 Cardiac Rate: NL - 77 bpm EKG Rhythm: Sinus Rhythm ST Segment: Normal EKG Comparison: No Significant Change Summary of EKG Findings: EKG at 10:37 showed NSR at 77bom, no ST elevation, normal axis, similar to EKG done 12/02/18 Re-Evaluation - Re-Evaluation First Eval Re-Evaluation Time: 13:33 Change: Unchanged Comment: Discussed results Second Eval Re-Evaluation Time: 14:16 Change: Improved Comment: Discussed result and plan for discharge GIGU Course/Dx - Course Assessment/Plan: Patient is a 73-year-old female who presents to the emergency department with chief complaint of having abdominal pain. Test results without any significant abnormality except for glucose of 128, CRP of 43.3, urinalysis negative for UTI. Abdominopelvic CT impression No abnormal masses or fluid collections are noted. Normal appendix. No evidence of obstructive uropathy is noted. Diverticulosis sigmoid colon. No definite diverticulitis is noted. In the ED course the patient was given IV fluids, Zofran for nausea and morphine for the pain. The patient has significant improved. However she developed a rash after the morphine was given. Therefore the patient was given Benadryl for the rash. Shell also was given a GI cocktail. After the GI cocktail the patients symptoms have significantly resolved. Therefore the patient was discharged home with follow-up with the primary care physician. I discussed all the findings and test results with the patient. Patient was instructed to return to the emergency room immediately if any of the symptoms return worsens. Plan of care was discussed with the patient and understands and agrees. All questions were answered at patient satisfaction. There were no further complaints or concerns. Lung exam before discharge: CTA B/L. Good air exchange. No wheezing or crackles heard. CVS: S1 and S2 present. No murmurs appreciated. Patient is alert and oriented x 3. Patient is hemodynamically stable. Patient will be discharged home with follow up PCP in the next 2-3 days - Diagnoses Provider Diagnoses: Nausea & vomiting, Diarrhea, Abdominal pain Discharge - Sign-Out/Discharge Documenting (check all that apply): Patient Departure - DC Patient Received Moderate/Deep Sedation with Procedure: No - Discharge Plan Condition: Stable Disposition: HOME Patient Education Materials: Acute Nausea and Vomiting (ED), Acute Diarrhea (ED ) Referrals: Yudelka Canas MD [Primary Care Provider] - 3 Days Additional Instructions: FOLLOW UP WITH YOUR PRIMARY CARE PROVIDER. RETURN TO THE ED FOR ANY WORSENING OR NEW SYMPTOMS. - Billing Disposition and Condition Condition: STABLE Disposition: Home - Attestation Statements Document Initiated by Jose: Yes Documenting Scribe: Eliel Lr Provider For Whom Jose is Documenting (Include Credential): Joao Barahona MD Scribe Attestation: Eliel Person scribed for Joao Barahona MD on 01/07/19 at 1824. Scribe Documentation Reviewed: Yes Provider Attestation: The documentation as recorded by the Eliel mead accurately reflects the service I personally performed and the decisions made by , Joao Barahona MD Status of Scribe Document: Viewed
[2019-01-07 10:58] LABS: ABS Basophils 0.1 10^3/ul (0-0.2); ABS Eosinophils 0.4 10^3/ul (0-0.6); ABS Lymphocytes 1.9 10^3/ul (1.0-4.8); ABS Monocytes 1.1 10^3/ul (0-0.8); ABS Neutrophils 6.8 10^3/ul (1.5-7.7); ABS Nucleated RBC 0 10^3/ul; Eosinophil % 4.3 %; Hematocrit 41 % (33-41); Hemoglobin 13.5 g/dL (12.0-16.0); Lymphocyte % 18.3 %; Mean Corpuscular HGB Conc 33 g/dL (31-36); Mean Corpuscular Hemoglobin 31 pg (27-31); Mean Corpuscular Volume 94 fL (80-97); Mean Platelet Volume 7.3 fL (7.4-10.4); Nucleated Red Blood Cells % 0; Platelet Count 276 10^3/uL (150-450); Red Blood Count 4.35 10^6 /uL (3.70-4.87); Red Cell Distribution Width 15 % (10.5-15); White Blood Count 10.4 10^3/uL (3.5-10.8)
[2019-01-07] MEDS ORDERED: diPHENhydraMINE IV* 50 MG/ML 1 ml VIAL (BENADRYL) SLOW PUSH ONE (11:06)
[2019-01-07] MEDS ORDERED: diPHENhydraMINE IV* 50 MG/ML 1 ml VIAL (BENADRYL) ONE (11:08)
[2019-01-07 11:16] LABS: Albumin 3.7 g/dL (3.2-5.2); Albumin/Globulin Ratio 1.2 (1-3); BUN/Creatinine Ratio 20.7 (8-20); C Reactive Protein 43.36 mg/L (<8.01); Calcium 9.2 mg/dL (8.6-10.3); EGFR African American 72.6 (>60); Magnesium 2.1 mg/dL (1.9-2.7); Potassium 4.1 mmol/L (3.5-5.0); Total Bilirubin 0.3 mg/dL (0.2-1.0); Total Protein 6.7 g/dL (6.4-8.9)
[2019-01-07 12:01] LABS: Urine Appearance Clear; Urine Bacteria Absent (Absent); Urine Bilirubin Negative (Negative); Urine Blood 2+ (Negative); Urine Color Yellow; Urine Glucose Negative (Negative); Urine Ketones Negative (Negative); Urine Nitrite Negative (Negative); Urine Protein Negative (Negative); Urine Red Blood Cell 2+(6-10/hpf) (Absent); Urine Specific Gravity 1.018 (1.010-1.030); Urine Squamous Epithelial Cell Present (Absent); Urine Urobilinogen Negative (Negative); Urine White Blood Cell Absent (Absent)
[2019-01-07] MEDS ORDERED: Iohexol 300* (CONTRAST) 10 ML SDV IV ONE (12:11)
[2019-01-07] MEDS ORDERED: Lidocaine 2% VISCOUS* 15 ML UDC PO ONE (13:34)
[2019-01-07] MEDS ORDERED: Al Hydrox/Mg Hydrox/Simet LIQ* 30 ML UDC PO ONE (13:34)
[2019-01-07 14:34] VITALS: BP 106/66
== END 2019-01-07 14:34 | disposition home or self-care (01) ==
LOC: ED 10:08
DX: R11.2 Nausea with vomiting, unspecified (principal); R19.7 Diarrhea, unspecified; R10.9 Unspecified abdominal pain; Z87.891 Personal history of nicotine dependence; I10 Essential (primary) hypertension
CPT/HCPCS: 36415; 74177; 80053; 81003; 81015; 82150; 82550; 83605; 83690; 83735; 84484; 85025; 86140; 93005; 96361; 96374; 96375; 99284; A9270-GY; J1200; J2270; J2405; Q9967

== ENCOUNTER 2020-04-18 14:43 | Inpatient (IN) ==
[2020-04-18 15:37] LABS: ABS Basophils 0.1 10^3/ul (0-0.2); ABS Eosinophils 0.3 10^3/ul (0-0.6); ABS Lymphocytes 2.6 10^3/ul (1.0-4.8); ABS Monocytes 1.3 10^3/ul (0-0.8); ABS Neutrophils 4.2 10^3/ul (1.5-7.7); Hematocrit 36 % (35-47); Lymphocyte % 30.3 %; Mean Corpuscular HGB Conc 33 g/dL (31-36); Mean Corpuscular Hemoglobin 31 pg (27-31); Mean Corpuscular Volume 92 fL (80-97); Mean Platelet Volume 7.4 fL (7.4-10.4); Nucleated Red Blood Cells % 0.1; Platelet Count 273 10^3/uL (150-450); Red Blood Count 3.93 10^6 /uL (3.70-4.87); Red Cell Distribution Width 13 % (10-15); White Blood Count 8.4 10^3/uL (3.5-10.8)
[2020-04-18 15:47] LABS: Activated Partial Thrombo Time 22.5 seconds (26.0-38.0); INR 1.08 (0.82-1.09)
[2020-04-18 15:58] LABS: Troponin I 0.09 ng/mL (<0.03)
[2020-04-18 16:10] LABS: ALT 10 U/L (7-52); AST 13 U/L (13-39); Albumin 3.5 g/dL (3.2-5.2); Albumin/Globulin Ratio 1.3 (1-3); Alkaline Phosphatase 65 U/L (34-104); Anion Gap 5 mmol/L (2-11); Blood Urea Nitrogen 18 mg/dL (6-24); CO2 Carbon Dioxide 32 mmol/L (22-32); Calcium 8.5 mg/dL (8.6-10.3); Chloride 101 mmol/L (101-111); EGFR African American 74.3 (>60); EGFR Non-African American 61.4 (>60); Globulin 2.8 g/dL (2-4); Glucose 110 mg/dL (70-100); Potassium 3.8 mmol/L (3.5-5.0); Sodium 138 mmol/L (135-145); Total Protein 6.3 g/dL (6.4-8.9)
[2020-04-18] MEDS ORDERED: Iohexol 350 (CONTRAST) 500 ML MDV IV ONE (16:50)
[2020-04-18] MEDS ORDERED: Magnesium Hydroxide LIQ 30 ML UDC PO PRN (21:06)
[2020-04-18] MEDS ORDERED: Senna TAB 8.6 mg TAB PO PRN (21:06)
[2020-04-18] MEDS ORDERED: Polyethylene Glycol 3350 17 GM PACKET PO PRN (21:07)
[2020-04-18] MEDS ORDERED: Albuterol HFA INHALER 8 gm MDI INH PRN (22:07)
[2020-04-19] LABS: ABS Basophils 0.1 10^3/ul (0-0.2); ABS Eosinophils 0.2 10^3/ul (0-0.6); ABS Lymphocytes 2.1 10^3/ul (1.0-4.8); ABS Monocytes 1.3 10^3/ul (0-0.8); ABS Neutrophils 4.6 10^3/ul (1.5-7.7); Hematocrit 37 % (35-47); Hemoglobin 12.1 g/dL (12.0-16.0); Lymphocyte % 25.2 %; Mean Corpuscular HGB Conc 33 g/dL (31-36); Mean Corpuscular Hemoglobin 31 pg (27-31); Mean Corpuscular Volume 93 fL (80-97); Mean Platelet Volume 7.5 fL (7.4-10.4); Nucleated Red Blood Cells % 0.1; Platelet Count 270 10^3/uL (150-450); Red Blood Count 3.94 10^6 /uL (3.70-4.87); Red Cell Distribution Width 14 % (10-15); White Blood Count 8.3 10^3/uL (3.5-10.8)
[2020-04-19 00:24] LABS: Troponin I 0.05 ng/mL (<0.03)
[2020-04-19 00:34] LABS: Activated Partial Thrombo Time 16.6 seconds (26.0-38.0); INR 1.03 (0.82-1.09)
[2020-04-19] MEDS: Witch Hazel PAD JAR TOPICAL SCH ×2 (00:42→11:07)
[2020-04-19] MEDS: Heparin 5000 UNITS/ML 1 mL VIAL SUBCUT SCH ×4 (00:48→21:11)
[2020-04-19 03:19] LABS: Hematocrit 35 % (35-47); Hemoglobin 11.5 g/dL (12.0-16.0)
[2020-04-19 05:55] LABS: ABS Monocytes 0.2 10^3/ul (0-0.8); ABS Neutrophils 5.9 10^3/ul (1.5-7.7); Eosinophil % 0.2 %; Hematocrit 36 % (35-47); Lymphocyte % 14.4 %; Mean Corpuscular HGB Conc 34 g/dL (31-36); Mean Corpuscular Hemoglobin 31 pg (27-31); Mean Corpuscular Volume 92 fL (80-97); Mean Platelet Volume 7.8 fL (7.4-10.4); Platelet Count 257 10^3/uL (150-450); Red Blood Count 3.91 10^6 /uL (3.70-4.87); Red Cell Distribution Width 13 % (10-15); White Blood Count 7.2 10^3/uL (3.5-10.8)
[2020-04-19 06:33] LABS: Anion Gap 4 mmol/L (2-11); CO2 Carbon Dioxide 32 mmol/L (22-32); Calcium 8.2 mg/dL (8.6-10.3); Chloride 102 mmol/L (101-111); Potassium 4.6 mmol/L (3.5-5.0); Sodium 138 mmol/L (135-145)
[2020-04-19 06:38] LABS: Blood Urea Nitrogen 16 mg/dL (6-24); EGFR African American 75.2 (>60); EGFR Non-African American 62.2 (>60); Glucose 128 mg/dL (70-100)
[2020-04-19 06:47] LABS: INR 1.04 (0.82-1.09)
[2020-04-19 07:52] LABS: Troponin I 0.04 ng/mL (<0.03)
[2020-04-19] MEDS: Calcium/Vitamin D TAB 250/125 TAB PO SCH ×2 (08:19→21:11)
[2020-04-19] MEDS: Aspirin EC 81 mg TAB.EC (enteric coated) PO SCH ×2 (08:19→21:12)
[2020-04-19] MEDS: Mometasone/Formoter 200/5 MDI INH SCH ×3 (09:35→20:04)
[2020-04-19] MEDS: Colestipol 1 gm TAB (NF) PO SCH (11:07)
[2020-04-20] MEDS: Heparin 5000 UNITS/ML 1 mL VIAL SUBCUT SCH (05:40)
[2020-04-20] MEDS: Mometasone/Formoter 200/5 MDI INH SCH (07:36)
[2020-04-20] MEDS: Calcium/Vitamin D TAB 250/125 TAB PO SCH (08:35)
[2020-04-20] MEDS: Aspirin EC 81 mg TAB.EC (enteric coated) PO SCH (08:36)
[2020-04-20] MEDS: Colestipol 1 gm TAB (NF) PO SCH (08:37)
[2020-04-20 12:18] VITALS: BP 125/52
== END 2020-04-20 14:25 | disposition home or self-care (01) | DRG 191 ==
LOC: ED 14:43 → MED 20:54
PROVIDERS: ADMIT Internal Medicine; ATTEND Internal Medicine

== ENCOUNTER 2022-06-05 08:16 | Inpatient (IN) ==
[2022-06-05] MEDS ORDERED: Albuterol/Ipratropium NEB.SOL (2.5/0.5 MG) 3 ML NEB.SOLN INH ONE ×2 (08:35→10:03)
[2022-06-05] MEDS ORDERED: methylPREDNISolone SOD SUCC 125 mg 2 ML VIAL IV ONE (08:36)
[2022-06-05] MEDS ORDERED: Azithromycin 500 mg/250 ml NS 500 MG/250 ML BAG IVPB ONE (08:50)
[2022-06-05] MEDS ORDERED: cefTRIAXone 1 gm/50 mL D5W 1 GM/50 ML BAG IV ONE (08:50)
[2022-06-05 09:17] LABS: PCO2 Arterial 48 mmHg (35-45); PO2 Arterial 91 mmHg (80-100)
[2022-06-05] MEDS ORDERED: Magnesium Sulfate 2 gm BAG 2 GM/50 ML BAG IVPB ONE (09:21)
[2022-06-05 09:33] LABS: ABS Basophils 0.1 10^3/ul (0-0.2); ABS Eosinophils 0.1 10^3/ul (0-0.6); ABS Monocytes 1.2 10^3/ul (0-0.8); ABS Neutrophils 11.3 10^3/ul (1.5-7.7); Eosinophil % 0.4 %; Hematocrit 42 % (35-47); Hemoglobin 13.9 g/dL (12.0-16.0); Lymphocyte % 7.1 %; Mean Corpuscular HGB Conc 33 g/dL (31-36); Mean Corpuscular Hemoglobin 30 pg (27-31); Mean Corpuscular Volume 92 fL (80-97); Mean Platelet Volume 7.7 fL (7.4-10.4); Platelet Count 201 10^3/uL (150-450); Red Blood Count 4.61 10^6 /uL (3.70-4.87); Red Cell Distribution Width 15 % (10-15); White Blood Count 13.6 10^3/uL (3.5-10.8)
[2022-06-05 09:49] LABS: INR 1.02 (0.89-1.11)
[2022-06-05 10:03] LABS: Albumin 4.2 g/dL (3.2-5.2); Albumin/Globulin Ratio 1.5 (1-3); Calcium 9.2 mg/dL (8.6-10.3); Globulin 2.8 g/dL (2-4); Magnesium 2.1 mg/dL (1.9-2.7); Potassium 3.9 mmol/L (3.5-5.0); Total Bilirubin 0.5 mg/dL (0.2-1.0); eGFR CKD-EPI 44.1 (>60)
[2022-06-05] MEDS ORDERED: Ondansetron 4 mg VIAL 2 MG/ML 2 ml VIAL IV ONE (10:04)
[2022-06-05 12:06] LABS: High Sensitivity Troponin 1 Hr 10 pg/mL (<15)
[2022-06-05] MEDS ORDERED: Ondansetron ODT 4 mg TAB 4 MG TAB PO PRN (13:59)
[2022-06-05] MEDS ORDERED: Enoxaparin 30 MG/0.3 ML SYR SUBCUT SCH (14:00)
[2022-06-05] MEDS ORDERED: SPIRIVA Respimat (tiotropium) 2.5 mcg/inh Inhaler INH SCH (15:00)
[2022-06-05] MEDS ORDERED: Mometasone/Formoter 100/5 MDI INH SCH (15:00)
[2022-06-05] MEDS: Enoxaparin 30 MG/0.3 ML SYR SUBCUT SCH (15:15)
[2022-06-05 15:35] LABS: C Reactive Protein 22.36 mg/L (<8.01)
[2022-06-05] MEDS: SPIRIVA Respimat (tiotropium) 2.5 mcg/inh Inhaler INH SCH (20:03)
[2022-06-05] MEDS: Mometasone/Formoter 100/5 MDI INH SCH (20:03)
[2022-06-05] MEDS: Albuterol HFA INHALER 8 gm MDI INH PRN (20:04)
[2022-06-05] MEDS: guaiFENesin/CODIENE 100mg/10mg 5 ML UDC PO PRN (20:06)
[2022-06-06] MEDS: guaiFENesin/CODIENE 100mg/10mg 5 ML UDC PO PRN ×2 (05:13→12:37)
[2022-06-06 06:08] LABS: ABS Lymphocytes 1.4 10^3/ul (1.0-4.8); ABS Monocytes 0.8 10^3/ul (0-0.8); ABS Neutrophils 8.2 10^3/ul (1.5-7.7); Hematocrit 40 % (35-47); Hemoglobin 13.2 g/dL (12.0-16.0); Lymphocyte % 13.6 %; Mean Corpuscular HGB Conc 33 g/dL (31-36); Mean Corpuscular Hemoglobin 30 pg (27-31); Mean Corpuscular Volume 92 fL (80-97); Mean Platelet Volume 7.9 fL (7.4-10.4); Platelet Count 185 10^3/uL (150-450); Red Blood Count 4.32 10^6 /uL (3.70-4.87); Red Cell Distribution Width 15 % (10-15); White Blood Count 10.5 10^3/uL (3.5-10.8)
[2022-06-06 07:13] LABS: C Reactive Protein 47.65 mg/L (<8.01); Calcium 9.2 mg/dL (8.6-10.3); eGFR CKD-EPI 55.4 (>60)
[2022-06-06] MEDS: SPIRIVA Respimat (tiotropium) 2.5 mcg/inh Inhaler INH SCH (07:21)
[2022-06-06] MEDS: Mometasone/Formoter 100/5 MDI INH SCH ×2 (07:22→20:34)
[2022-06-06 07:48] LABS: Erythrocyte Sed Rate 22 mm/Hr (0-29)
[2022-06-06] MEDS: Azithromycin 500 mg/250 ml NS 500 MG/250 ML BAG IVPB SCH (09:56)
[2022-06-06] MEDS: Albuterol HFA INHALER 8 gm MDI INH PRN (10:22)
[2022-06-06] MEDS: cefTRIAXone 1 gm/50 mL D5W 1 GM/50 ML BAG IV SCH (11:40)
[2022-06-06] MEDS ORDERED: Albuterol/Ipratropium NEB.SOL (2.5/0.5 MG) 3 ML NEB.SOLN INH PRN (11:49)
[2022-06-06] MEDS: Albuterol/Ipratropium NEB.SOL (2.5/0.5 MG) 3 ML NEB.SOLN INH SCH ×3 (12:01→20:34)
[2022-06-06] MEDS: Enoxaparin 30 MG/0.3 ML SYR SUBCUT SCH (12:37)
[2022-06-07] MEDS: guaiFENesin/CODIENE 100mg/10mg 5 ML UDC PO PRN ×2 (05:48→20:04)
[2022-06-07 06:06] LABS: ABS Lymphocytes 2.8 10^3/ul (1.0-4.8); ABS Monocytes 1.1 10^3/ul (0-0.8); ABS Neutrophils 6.7 10^3/ul (1.5-7.7); Eosinophil % 0.2 %; Hematocrit 39 % (35-47); Hemoglobin 13.3 g/dL (12.0-16.0); Lymphocyte % 26.1 %; Mean Corpuscular HGB Conc 34 g/dL (31-36); Mean Corpuscular Hemoglobin 31 pg (27-31); Mean Corpuscular Volume 91 fL (80-97); Mean Platelet Volume 7.8 fL (7.4-10.4); Platelet Count 183 10^3/uL (150-450); Red Blood Count 4.31 10^6 /uL (3.70-4.87); Red Cell Distribution Width 15 % (10-15); White Blood Count 10.7 10^3/uL (3.5-10.8)
[2022-06-07 06:40] LABS: Calcium 9.1 mg/dL (8.6-10.3); Magnesium 2.5 mg/dL (1.9-2.7); Potassium 3.7 mmol/L (3.5-5.0); eGFR CKD-EPI 48.7 (>60)
[2022-06-07] MEDS: Albuterol/Ipratropium NEB.SOL (2.5/0.5 MG) 3 ML NEB.SOLN INH SCH ×4 (07:35→19:14)
[2022-06-07] MEDS: Mometasone/Formoter 100/5 MDI INH SCH ×2 (07:36→19:14)
[2022-06-07] MEDS: SPIRIVA Respimat (tiotropium) 2.5 mcg/inh Inhaler INH SCH (07:37)
[2022-06-07] MEDS: cefTRIAXone 1 gm/50 mL D5W 1 GM/50 ML BAG IV SCH (09:30)
[2022-06-07] MEDS: Azithromycin 500 mg/250 ml NS 500 MG/250 ML BAG IVPB SCH (10:54)
[2022-06-07] MEDS ORDERED: Calcium Carb (TUMS) 500 mg CHEW TAB PO ONE (12:25)
[2022-06-07] MEDS: Enoxaparin 30 MG/0.3 ML SYR SUBCUT SCH (13:12)
[2022-06-08 06:26] LABS: ABS Lymphocytes 2.9 10^3/ul (1.0-4.8); ABS Neutrophils 7.1 10^3/ul (1.5-7.7); Eosinophil % 0.1 %; Hematocrit 41 % (35-47); Hemoglobin 13.6 g/dL (12.0-16.0); Lymphocyte % 26.6 %; Mean Corpuscular HGB Conc 33 g/dL (31-36); Mean Corpuscular Hemoglobin 30 pg (27-31); Mean Corpuscular Volume 91 fL (80-97); Mean Platelet Volume 7.9 fL (7.4-10.4); Nucleated Red Blood Cells % 0.1; Platelet Count 188 10^3/uL (150-450); Red Blood Count 4.51 10^6 /uL (3.70-4.87); Red Cell Distribution Width 15 % (10-15)
[2022-06-08 06:48] LABS: Blood Urea Nitrogen 30 mg/dL (6-24); CO2 Carbon Dioxide 37 mmol/L (22-32); Chloride 92 mmol/L (101-111); Glucose 103 mg/dL (70-100); Magnesium 2.5 mg/dL (1.9-2.7); Sodium 139 mmol/L (135-145); eGFR CKD-EPI 53.6 (>60)
[2022-06-08 06:53] LABS: Anion Gap 10 mmol/L (2-11)
[2022-06-08] MEDS ORDERED: Albuterol/Ipratropium NEB.SOL (2.5/0.5 MG) 3 ML NEB.SOLN INH SCH (07:00)
[2022-06-08] MEDS: Mometasone/Formoter 100/5 MDI INH SCH (08:04)
[2022-06-08] MEDS: SPIRIVA Respimat (tiotropium) 2.5 mcg/inh Inhaler INH SCH (08:05)
[2022-06-08] MEDS: cefTRIAXone 1 gm/50 mL D5W 1 GM/50 ML BAG IV SCH (09:58)
[2022-06-08] MEDS ORDERED: Potassium Chlor 20 meq TAB.ER PO ONE (11:18)
[2022-06-08 11:21] VITALS: BP 122/64
[2022-06-08 18:24] LABS: Hepatitis B Surface Antigen Nonreactive (Nonreactive)
[2022-06-08 18:29] LABS: Hepatitis A Ab IgM Negative (Negative); Hepatitis B Core IgM Nonreactive (Nonreactive)
[2022-06-08 18:41] LABS: Hepatitis C Antibody Negative (Negative)
[2022-06-09 06:20] LABS: Hepatitis B Surface Ab Not Immune (Immune)
[2022-06-11 15:05] LABS: Mumps IgM Antibody Index 0.45 (0.00-0.79); Mumps Virus IgG Antibody Positive; Mumps Virus IgM Antibody Negative (Negative)
== END 2022-06-08 13:45 | disposition home or self-care (01) | DRG 191 ==
LOC: ED 08:16 → EDHOLD 08:16 → MED 15:09
PROVIDERS: ADMIT Internal Medicine; ATTEND Internal Medicine

== ENCOUNTER 2023-11-10 00:17 | Observation (INO) ==
[2023-11-10] MEDS: methylPREDNISolone SOD SUCC 125 mg 2 ML VIAL IV ONE (01:07)
[2023-11-10 01:44] LABS: ABS Eosinophils 0.2 10^3/uL (0.0-0.5); ABS Lymphocytes 2.5 10^3/uL (1.0-4.8); ABS Monocytes 0.8 10^3/uL (0.0-0.9); ABS Neutrophils 4.8 10^3/uL (1.5-7.6); Eosinophil % 1.9 %; Hematocrit 33.6 % (35-45); Hemoglobin 10.9 g/dL (11.5-14.3); Lymphocyte % 29.7 %; Mean Corpuscular Hemoglobin 28.3 pg (27-33); Mean Corpuscular Hgb Conc 32.5 g/dL (31-36); Mean Platelet Volume 7.4 fL (7.5-11.2); Platelet Count 290 10^3/uL (150-450); Red Blood Count 3.86 10^6/uL (3.63-4.92); Red Cell Distribution Width 15.1 % (12-17); White Blood Count 8.3 10^3/uL (3.8-11.8)
[2023-11-10 01:53] LABS: INR 0.95 (0.83-1.13)
[2023-11-10 01:58] LABS: Urine Appearance Clear; Urine Bilirubin Negative (Negative); Urine Blood 1+ (Negative); Urine Color Colorless; Urine Glucose 1+(50 mg/dL) (Negative); Urine Ketones Negative (Negative); Urine Nitrite Negative (Negative); Urine Protein Negative (Negative); Urine Specific Gravity 1.004 (1.002-1.030); Urine Urobilinogen Negative (Negative)
[2023-11-10] MEDS: Albuterol/Ipratropium NEB.SOL (2.5/0.5 MG) 3 ML NEB.SOLN INH ONE ×4 (01:58→04:20)
[2023-11-10 02:03] LABS: Urine Bacteria Absent (Absent); Urine Red Blood Cell Trace(0-2/hpf) (Absent); Urine Squamous Epithelial Cell Present (Absent); Urine White Blood Cell Trace(0-5/hpf) (Absent)
[2023-11-10 02:04] LABS: Albumin 3.4 g/dL (3.2-5.2); Albumin/Globulin Ratio 1.1 (1-3); Creatinine, Serum 0.92 mg/dL (0.51-0.95); Globulin 3.1 g/dL (2-4); Total Bilirubin 0.2 mg/dL (0.2-1.0); Total Protein 6.5 g/dL (6.4-8.9); eGFR CKD-EPI 64.1 (>60)
[2023-11-10] MEDS: Morphine 4 MG/ML VIAL (1 ml) IV ONE (02:17)
[2023-11-10 03:04] LABS: High Sensitivity Troponin 1 Hr 5 pg/mL (<15)
[2023-11-10] MEDS: Lactated Ringers 1000 ml BAG 1,000 ML IV ONE (03:57)
[2023-11-10] MEDS: Ondansetron 4 mg VIAL 2 MG/ML 2 ml VIAL IV ONE (03:58)
[2023-11-10] MEDS: Iodixanol (CONTRAST) 320 MG/ML 100 ML SDV IV ONE (04:11)
[2023-11-10] MEDS: cefTRIAXone 1 gm/50 mL D5W 1 GM/50 ML BAG IV ONE (04:20)
[2023-11-10] MEDS ORDERED: Albuterol 2.5mg/3 ml (0.083%) NEB.SOLN INH PRN (04:28)
[2023-11-10 05:01] LABS: High Sensitivity Troponin 3 Hr 6 pg/mL (<15)
[2023-11-10] MEDS: Enoxaparin 40 MG/0.4 ML SYR SUBCUT SCH (05:14)
[2023-11-10 06:34] LABS: Ferritin 11.7 ng/mL (11-307)
[2023-11-10] MEDS: NF: BUDESONIDE/GLYCOPYR/FORMOTEROL MDI (NF) INH SCH (08:31)
[2023-11-10] MEDS: CMCS: Roflumilast 500 mcg TAB (NF) PO SCH (08:47)
[2023-11-10] MEDS: methylPREDNISolone SOD SUCC 40 mg/ml 1 ml VIAL IV SCH (09:01)
[2023-11-10] MEDS: Azithromycin 500 mg/250 ml NS 500 MG/250 ML BAG IVPB SCH (12:07)
[2023-11-10] MEDS: GRISEOFULVIN MICROSIZE 500 MG PO SCH (12:45)
[2023-11-10] MEDS: Ondansetron ODT 4 mg TAB 4 MG TAB PO PRN (12:54)
[2023-11-11] MEDS: cefTRIAXone 1 gm/50 mL D5W 1 GM/50 ML BAG IV SCH (05:58)
[2023-11-11 06:05] LABS: ABS Lymphocytes 1.8 10^3/uL (1.0-4.8); ABS Monocytes 0.6 10^3/uL (0.0-0.9); ABS Neutrophils 8.6 10^3/uL (1.5-7.6); ABS Nucleated RBC 0.01 10^3/ul; Hematocrit 34.2 % (35-45); Lymphocyte % 16.6 %; Mean Corpuscular Hemoglobin 28.2 pg (27-33); Mean Corpuscular Hgb Conc 32.2 g/dL (31-36); Mean Corpuscular Volume 87.6 fL (80-97); Mean Platelet Volume 7.9 fL (7.5-11.2); Platelet Count 293 10^3/uL (150-450); Red Cell Distribution Width 15.4 % (12-17); White Blood Count 11.1 10^3/uL (3.8-11.8)
[2023-11-11 06:20] LABS: Calcium 8.7 mg/dL (8.6-10.3); Creatinine, Serum 0.8 mg/dL (0.51-0.95); Magnesium 2.3 mg/dL (1.9-2.7); Potassium 4.6 mmol/L (3.5-5.0); eGFR CKD-EPI 75.8 (>60)
[2023-11-11] MEDS ORDERED: NF:BUDESONIDE/GLYCOPYR/FORMOTEROL MDI (NF) INH PRN (06:36)
[2023-11-12 06:24] LABS: ABS Lymphocytes 1.9 10^3/uL (1.0-4.8); ABS Monocytes 0.5 10^3/uL (0.0-0.9); ABS Neutrophils 7.3 10^3/uL (1.5-7.6); Hematocrit 33.6 % (35-45); Hemoglobin 10.9 g/dL (11.5-14.3); Mean Corpuscular Hemoglobin 28.2 pg (27-33); Mean Corpuscular Hgb Conc 32.3 g/dL (31-36); Mean Corpuscular Volume 87.2 fL (80-97); Mean Platelet Volume 7.6 fL (7.5-11.2); Platelet Count 305 10^3/uL (150-450); Red Blood Count 3.86 10^6/uL (3.63-4.92); Red Cell Distribution Width 15.1 % (12-17); White Blood Count 9.7 10^3/uL (3.8-11.8)
[2023-11-12 06:48] LABS: Calcium 9.2 mg/dL (8.6-10.3); Creatinine, Serum 0.69 mg/dL (0.51-0.95); Magnesium 2.3 mg/dL (1.9-2.7); Potassium 4.5 mmol/L (3.5-5.0); eGFR CKD-EPI 89.3 (>60)
[2023-11-12] MEDS: Mometasone/Formoter 200/5 MDI INH SCH (11:46)
[2023-11-12] MEDS: Albuterol/Ipratropium NEB.SOL (2.5/0.5 MG) 3 ML NEB.SOLN INH PRN (11:46)
[2023-11-12] MEDS: Fluticasone NASAL SPRAY 50MCG 16 gm SPRAY BTL BOTH NARES SCH (12:19)
[2023-11-12 14:37] VITALS: BP 127/81
== END 2023-11-12 17:38 | disposition home or self-care (01) ==
LOC: EDHOLD 00:17 → ED 00:17 → SUATTDRO 04:23 → MEDTELE 07:29
PROVIDERS: ADMIT Internal Medicine; ATTEND Internal Medicine

== ENCOUNTER 2024-02-16 05:46 | Observation (INO) ==
[2024-02-16] MEDS: Lactated Ringers 1000 ml BAG 1,000 ML IV ONE (06:30)
[2024-02-16] MEDS: Ondansetron 4 mg VIAL 2 MG/ML 2 ml VIAL IV ONE ×2 (06:30→08:05)
[2024-02-16 07:02] LABS: Activated Partial Thrombo Time 26.8 seconds (26.0-38.0); INR 1.03 (0.83-1.13)
[2024-02-16] MEDS: Albuterol/Ipratropium NEB.SOL (2.5/0.5 MG) 3 ML NEB.SOLN INH ONE (07:13)
[2024-02-16 07:35] LABS: High Sensitivity Troponin 1 Hr 5 pg/mL (<15)
[2024-02-16 07:56] LABS: Albumin 4.2 g/dL (3.2-5.2); Albumin/Globulin Ratio 1.3 (1-3); C Reactive Protein 9.95 mg/L (<8.01); Calcium 9.5 mg/dL (8.6-10.3); Creatinine, Serum 1.16 mg/dL (0.51-0.95); Globulin 3.3 g/dL (2-4); Magnesium 2.1 mg/dL (1.9-2.7); Potassium 3.9 mmol/L (3.5-5.0); Total Bilirubin 0.4 mg/dL (0.2-1.0); Total Protein 7.5 g/dL (6.4-8.9); eGFR CKD-EPI 48.6 (>60)
[2024-02-16 07:59] LABS: ABS Basophils 0.1 10^3/uL (0.0-0.1); ABS Eosinophils 0.1 10^3/uL (0.0-0.5); ABS Lymphocytes 3.2 10^3/uL (1.0-4.8); ABS Monocytes 0.8 10^3/uL (0.0-0.9); ABS Neutrophils 3.3 10^3/uL (1.5-7.6); ABS Nucleated RBC 0.01 10^3/ul; Eosinophil % 0.9 %; Hematocrit 38.4 % (35-45); Hemoglobin 12.6 g/dL (11.5-14.3); Lymphocyte % 43.5 %; Mean Corpuscular Hemoglobin 28.8 pg (27-33); Mean Corpuscular Hgb Conc 32.9 g/dL (31-36); Mean Corpuscular Volume 87.4 fL (80-97); Mean Platelet Volume 7.9 fL (7.5-11.2); Nucleated Red Blood Cells % 0.2 %/100WBC (0.0-0.8); Platelet Count 301 10^3/uL (150-450); Red Blood Count 4.39 10^6/uL (3.63-4.92); Red Cell Distribution Width 16.7 % (12-17); White Blood Count 7.4 10^3/uL (3.8-11.8)
[2024-02-16] MEDS: Iodixanol (CONTRAST) 320 MG/ML 100 ML SDV IV ONE (09:41)
[2024-02-16] MEDS: fentaNYL 100 mcg/2 ml 50 MCG/ML VIAL IV SLOW PU ONE (10:44)
[2024-02-16 13:53] LABS: Urine Appearance Clear; Urine Bacteria Absent /HPF (Absent); Urine Bilirubin Negative (Negative); Urine Blood Trace (Negative); Urine Color Yellow; Urine Glucose Negative (Negative); Urine Ketones 1+ (Negative); Urine Nitrite Negative (Negative); Urine Protein 2+ (>=100 mg/dL) (Negative); Urine Red Blood Cell 1+(3-5/hpf) /HPF (0-Trace); Urine Specific Gravity >1.050 (1.002-1.030); Urine Squamous Epithelial Cell Present /HPF (Absent); Urine Urobilinogen Negative (Negative); Urine White Blood Cell Trace(0-5/hpf) /HPF (0-Trace)
[2024-02-16] MEDS ORDERED: Albuterol HFA INHALER 8 gm MDI INH PRN (16:37)
[2024-02-16] MEDS ORDERED: Ondansetron ODT 4 mg TAB 4 MG TAB PO PRN (16:37)
[2024-02-16] MEDS: Enoxaparin 40 MG/0.4 ML SYR SUBCUT SCH (18:29)
[2024-02-16] MEDS: Lactated Ringers 1000 ml BAG 1,000 ML IV SCH (18:36)
[2024-02-16] MEDS: BUDESONIDE/GLYCOPYR/FORMOTEROL MDI (NF) INH SCH (20:42)
[2024-02-16] MEDS: Carbidopa/Levodop 25/100 MG TAB PO SCH (21:07)
[2024-02-16] MEDS: buPROPion SR 100 mg TAB.SR PO SCH (21:12)
[2024-02-17 06:20] LABS: ABS Basophils 0.1 10^3/uL (0.0-0.1); ABS Eosinophils 0.1 10^3/uL (0.0-0.5); ABS Lymphocytes 2.2 10^3/uL (1.0-4.8); ABS Monocytes 0.9 10^3/uL (0.0-0.9); ABS Neutrophils 3.2 10^3/uL (1.5-7.6); ABS Nucleated RBC 0.01 10^3/ul; Eosinophil % 1.5 %; Hematocrit 33.6 % (35-45); Hemoglobin 10.9 g/dL (11.5-14.3); Lymphocyte % 34.7 %; Mean Corpuscular Hemoglobin 28.6 pg (27-33); Mean Corpuscular Hgb Conc 32.6 g/dL (31-36); Mean Corpuscular Volume 87.7 fL (80-97); Mean Platelet Volume 7.2 fL (7.5-11.2); Nucleated Red Blood Cells % 0.1 %/100WBC (0.0-0.8); Platelet Count 239 10^3/uL (150-450); Red Blood Count 3.83 10^6/uL (3.63-4.92); Red Cell Distribution Width 16.9 % (12-17); White Blood Count 6.5 10^3/uL (3.8-11.8)
[2024-02-17 06:47] LABS: Anion Gap 8 mmol/L (2-16); Blood Urea Nitrogen 10 mg/dL (6-24); CO2 Carbon Dioxide 29 mmol/L (22-32); Calcium 8.8 mg/dL (8.6-10.3); Chloride 103 mmol/L (101-111); Glucose 86 mg/dL (70-100); Potassium 3.9 mmol/L (3.5-5.0); Sodium 140 mmol/L (135-145); eGFR CKD-EPI 51.8 (>60)
[2024-02-17 06:49] LABS: ALT < 3 U/L (7-52); AST 12 U/L (13-39); Albumin 3.5 g/dL (3.2-5.2); Albumin/Globulin Ratio 1.3 (1-3); Alkaline Phosphatase 61 U/L (35-149); Globulin 2.7 g/dL (2-4); Magnesium 1.9 mg/dL (1.9-2.7); Total Bilirubin 0.4 mg/dL (0.2-1.0); Total Protein 6.2 g/dL (6.4-8.9)
[2024-02-17] MEDS: CMCS: Roflumilast 500 mcg TAB (NF) PO SCH (08:40)
[2024-02-17] MEDS: Lidocaine PATCH 5% PATCH TRANSDERM SCH (13:05)
[2024-02-18 10:32] VITALS: BP 102/62
== END 2024-02-18 11:15 | disposition home or self-care (01) ==
LOC: EDHOLD 05:46 → ED 05:46 → SUATTDRO 13:33 → MED 15:28
PROVIDERS: ADMIT Family Medicine; ATTEND Internal Medicine

== ENCOUNTER 2024-03-02 14:24 | Inpatient (IN) ==
[2024-03-02 16:10] LABS: ABS Basophils 0.1 10^3/uL (0.0-0.1); ABS Monocytes 1.2 10^3/uL (0.0-0.9); ABS Neutrophils 7.6 10^3/uL (1.5-7.6); Eosinophil % 0.1 %; Hemoglobin 12.5 g/dL (11.5-14.3); Lymphocyte % 24.9 %; Mean Corpuscular Volume 87.9 fL (80-97); Mean Platelet Volume 7.7 fL (7.5-11.2); Platelet Count 279 10^3/uL (150-450); Red Blood Count 4.32 10^6/uL (3.63-4.92); Red Cell Distribution Width 16.3 % (12-17); White Blood Count 11.9 10^3/uL (3.8-11.8)
[2024-03-02 16:42] LABS: ALT < 3 U/L (7-52); AST 14 U/L (13-39); Acetaminophen < 15 mcg/mL; Albumin 4.3 g/dL (3.2-5.2); Albumin/Globulin Ratio 1.3 (1-3); Alcohol, S < 13 mg/dL (<13); Alkaline Phosphatase 66 U/L (35-149); Anion Gap 7 mmol/L (2-16); Blood Urea Nitrogen 18 mg/dL (6-24); CO2 Carbon Dioxide 28 mmol/L (22-32); Calcium 9.7 mg/dL (8.6-10.3); Chloride 101 mmol/L (101-111); Creatinine, Serum 1.02 mg/dL (0.51-0.95); Globulin 3.2 g/dL (2-4); Glucose 81 mg/dL (70-100); Potassium 3.9 mmol/L (3.5-5.0); Salicylate < 2.50 mg/dL (<30); Sodium 136 mmol/L (135-145); Total Bilirubin 0.4 mg/dL (0.2-1.0); Total Protein 7.5 g/dL (6.4-8.9); eGFR CKD-EPI 56.7 (>60)
[2024-03-02 16:54] LABS: TSH Ultra Thyroid Stim Horm 0.68 mcIU/mL (0.34-5.60)
[2024-03-02] MEDS: Ondansetron ODT 4 mg TAB 4 MG TAB PO ONE (23:00)
[2024-03-03] MEDS: buPROPion SR 100 mg TAB.SR PO SCH (03:11)
[2024-03-03] MEDS: Carbidopa/Levodop 25/100 MG TAB PO SCH ×2 (03:11→22:37)
[2024-03-03] MEDS: Ondansetron ODT 4 mg TAB 4 MG TAB SL PRN (08:57)
[2024-03-03] MEDS: Calcium/Vitamin D TAB 250/125 TAB PO SCH (22:35)
[2024-03-03] MEDS: Ondansetron ODT 4 mg TAB 4 MG TAB PO PRN (22:35)
[2024-03-03] MEDS: PTO: BUDESONIDE/GLYCOPYR/FORMOTEROL MDI (NF) INH SCH (22:45)
[2024-03-04] MEDS: Fluoxetine LIQ 20 MG/5 ML UDC PO SCH (08:13)
[2024-03-05 01:45] LABS: Urine Appearance Clear; Urine Bilirubin Negative (Negative); Urine Blood Negative (Negative); Urine Color Light-Yellow; Urine Glucose Negative (Negative); Urine Ketones Trace (Negative); Urine Nitrite Negative (Negative); Urine Protein Negative (Negative); Urine Specific Gravity 1.016 (1.002-1.030); Urine Urobilinogen Negative (Negative); Urine pH 5.5 (5.0-8.0)
[2024-03-05 01:46] LABS: Urine Benzodiazepine Screen Presumptive Positive (None Detect); Urine Cannabinoids Screen None Detected (None Detect); Urine Opiates Screen None Detected (None Detect)
[2024-03-05] MEDS ORDERED: Ibuprofen ADULT LIQ 600 MG/30 ML UDC PO PRN (02:16)
[2024-03-05] MEDS: Albuterol HFA INHALER 8 gm MDI INH PRN (08:31)
[2024-03-05] MEDS: Calcium Carb (TUMS) 500 mg CHEW TAB PO PRN (19:32)
[2024-03-06] MEDS: Polyethylene Glycol 3350 17 GM PACKET PO PRN (11:13)
[2024-03-08 13:39] VITALS: BP 120/64
== END 2024-03-08 15:10 | disposition home or self-care (01) | DRG 880 ==
LOC: ED 14:24 → EDHOLD 03-03 11:47 → MED 03-03 14:46
PROVIDERS: ADMIT Hospitalist; ATTEND Hospitalist

== ENCOUNTER 2024-08-26 07:23 | Observation (INO) ==
[2024-08-26 08:15] LABS: ABS Eosinophils 0.1 10^3/uL (0.0-0.5); ABS Lymphocytes 2.1 10^3/uL (1.0-4.8); ABS Monocytes 0.5 10^3/uL (0.0-0.9); ABS Neutrophils 3.8 10^3/uL (1.5-7.6); ABS Nucleated RBC 0.02 10^3/ul; Eosinophil % 1.5 %; Hematocrit 38.8 % (35-45); Hemoglobin 12.7 g/dL (11.5-14.3); Lymphocyte % 32.5 %; Mean Corpuscular Hemoglobin 30.3 pg (27-33); Mean Corpuscular Hgb Conc 32.6 g/dL (31-36); Mean Platelet Volume 8.3 fL (7.5-11.2); Nucleated Red Blood Cells % 0.3 %/100WBC (0.0-0.8); Platelet Count 207 10^3/uL (150-450); Red Blood Count 4.17 10^6/uL (3.63-4.92); White Blood Count 6.5 10^3/uL (3.8-11.8)
[2024-08-26] MEDS: Lactated Ringers 1000 ml BAG 1,000 ML IV ONE (08:23)
[2024-08-26] MEDS: Ondansetron 4 mg VIAL 2 MG/ML 2 ml VIAL IV ONE (08:23)
[2024-08-26] MEDS: Acetaminophen IV 1 GM/100ML 1,000 MG/100 ML BAG IV ONE (08:24)
[2024-08-26 09:10] LABS: Albumin/Globulin Ratio 1.5 (1-3); Calcium 9.7 mg/dL (8.6-10.3); Creatinine, Serum 0.93 mg/dL (0.51-0.95); Globulin 2.6 g/dL (2-4); Potassium 4.7 mmol/L (3.5-5.0); Total Bilirubin 0.4 mg/dL (0.2-1.0); Total Protein 6.6 g/dL (6.4-8.9); eGFR CKD-EPI 63.3 (>60)
[2024-08-26] MEDS: fentaNYL 100 mcg/2 ml 50 MCG/ML VIAL IV SLOW PU ONE (09:28)
[2024-08-26 09:43] LABS: High Sensitivity Troponin 1 Hr 7 pg/mL (<15)
[2024-08-26] MEDS ORDERED: Iodixanol 320 (CONTRAST) 100 ML SDV IV ONE (09:57)
[2024-08-26] MEDS: Metoclopramide 5 MG/ML VIAL (10 mg) IV SLOW PU ONE (11:36)
[2024-08-26] MEDS: Ondansetron 4 mg VIAL 2 MG/ML 2 ml VIAL IV PRN (14:54)
[2024-08-26] MEDS: Al Hydrox/Mg Hydrox/Simet LIQ 30 ML UDC PO ONE (15:51)
[2024-08-26] MEDS ORDERED: Albuterol HFA INHALER 8 gm MDI INH PRN (16:39)
[2024-08-26] MEDS: Acetaminophen IV 1 GM/100ML 1,000 MG/100 ML BAG IV PRN (17:18)
[2024-08-26] MEDS: Enoxaparin 40 MG/0.4 ML SYR SUBCUT SCH ×2 (17:51→18:43)
[2024-08-26] MEDS: DULoxetine DR 60 mg CAP PO SCH (18:42)
[2024-08-26] MEDS: Carbidopa/Levodop 25/100 MG TAB PO SCH (20:45)
[2024-08-26] MEDS: Polyethylene Glycol 3350 17 GM PACKET PO SCH (20:45)
[2024-08-26] MEDS: AMANTADINE HCL 100 MG PO SCH (20:57)
[2024-08-26] MEDS: RABEPRAZOLE 20 MG PO SCH (20:57)
[2024-08-26] MEDS: PTO:BUDESONIDE/GLYCOPYR/FORMOTEROL MDI (NF) INH SCH (20:57)
[2024-08-26] MEDS: SENNA PO SCH (20:58)
[2024-08-26] MEDS: DOCUSATE PO SCH (20:58)
[2024-08-26] MEDS: Prochlorperazine 5 mg/ml 2 ml VIAL (10 mg) IV PRN (22:56)
[2024-08-26] MEDS: Senna TAB 8.6 mg TAB PO SCH (23:36)
[2024-08-27] MEDS: Ondansetron 4 mg VIAL 2 MG/ML 2 ml VIAL IV PRN (11:43)
[2024-08-27] MEDS ORDERED: Regadenoson 0.4 MG/5 ML SYRINGE ONE (12:07)
[2024-08-27] MEDS ORDERED: Aminophylline 25 MG/ML VIAL ONE (12:07)
[2024-08-27] MEDS: Aminophylline 25 MG/ML VIAL IV ONE (13:03)
[2024-08-27] MEDS ORDERED: Ondansetron 4 mg VIAL 2 MG/ML 2 ml VIAL IV PRN (13:32)
[2024-08-27] MEDS: PTO:BUDESONIDE/GLYCOPYR/FORMOTEROL MDI (NF) INH SCH (22:50)
[2024-08-28] MEDS: AMANTADINE HCL 100 MG PO SCH (02:27)
[2024-08-28] MEDS: CLOBETASOL 0.05% TOPICAL PRN (21:39)
[2024-08-29] MEDS: Al Hydrox/Mg Hydrox/Simet LIQ 30 ML UDC PO ONE (06:22)
[2024-08-29] MEDS: AMANTADINE HCL 100 MG PO SCH (13:35)
[2024-08-30 06:20] LABS: Hematocrit 35.5 % (35-45); Hemoglobin 11.7 g/dL (11.5-14.3); Mean Corpuscular Hemoglobin 29.6 pg (27-33); Mean Corpuscular Hgb Conc 32.9 g/dL (31-36); Mean Platelet Volume 7.5 fL (7.5-11.2); Platelet Count 243 10^3/uL (150-450); Red Blood Count 3.95 10^6/uL (3.63-4.92); Red Cell Distribution Width 13.3 % (12-17); White Blood Count 6.8 10^3/uL (3.8-11.8)
[2024-08-30 06:53] LABS: Calcium 9.3 mg/dL (8.6-10.3); Creatinine, Serum 0.85 mg/dL (0.51-0.95); Potassium 4.3 mmol/L (3.5-5.0); eGFR CKD-EPI 70.5 (>60)
[2024-08-30 13:26] LABS: Rapid COVID-19 Molecular Undetected (Undetected)
[2024-08-30] MEDS: Al Hydrox/Mg Hydrox/Simet LIQ 30 ML UDC PO PRN (14:28)
[2024-08-31] MEDS: PTO:BUDESONIDE/GLYCOPYR/FORMOTEROL MDI (NF) INH SCH (20:19)
[2024-09-01 07:48] LABS: Hematocrit 35.9 % (35-45); Hemoglobin 11.9 g/dL (11.5-14.3); Mean Corpuscular Hemoglobin 29.9 pg (27-33); Mean Corpuscular Hgb Conc 33.1 g/dL (31-36); Mean Corpuscular Volume 90.3 fL (80-97); Mean Platelet Volume 7.6 fL (7.5-11.2); Platelet Count 261 10^3/uL (150-450); Red Blood Count 3.98 10^6/uL (3.63-4.92); Red Cell Distribution Width 13.6 % (12-17); White Blood Count 8.2 10^3/uL (3.8-11.8)
[2024-09-01 08:25] LABS: Albumin/Globulin Ratio 1.5 (1-3); Calcium 9.7 mg/dL (8.6-10.3); Creatinine, Serum 0.99 mg/dL (0.51-0.95); Globulin 2.6 g/dL (2-4); Potassium 4.4 mmol/L (3.5-5.0); Total Bilirubin 0.4 mg/dL (0.2-1.0); Total Protein 6.6 g/dL (6.4-8.9); eGFR CKD-EPI 58.7 (>60)
[2024-09-01 09:53] VITALS: BP 137/58
== END 2024-09-01 13:15 | disposition home or self-care (01) ==
LOC: ED 07:23 → EDHOLD 07:23 → SUATTDRO 13:40 → MED 21:26
PROVIDERS: ADMIT Internal Medicine; ATTEND Internal Medicine